=== PATIENT | female | born 1960 | race Caucasian/White ===

== ENCOUNTER → 2021-03-08 08:57 | Outpatient (BNVA) | payer OTHER, SELFPAY | PROVIDERS: PCP Internal Medicine; Visit Provider Advanced Practice Midwife ==

== ENCOUNTER 2021-03-26 12:51 | Outpatient (REF) | payer OTHER, SELFPAY ==
--- NOTE | ~2021-03-26 | US_ITS ---
EXAMINATION: US PELVIS ULTRASOUND CLINICAL INFORMATION: R10.2 - Pelvic and perineal pain. Age 60. COMPARISON: Pelvic ultrasound 02/14/2020 TECHNIQUE: Ultrasound of the pelvis is performed using both transabdominal and transvaginal transducers along with Doppler. Transvaginal imaging is performed due to inadequate visualization transabdominally. FINDINGS: Uterus: The uterus is anteverted and measures 8.2 x 3.2 x 3.6 cm. Volume 49.5 mL. The double wall endometrial thickness is 7 mm. The uterus is smooth in contour and has normal myometrial echogenicity. No visible fibroid. There is some trace fluid in the endocervical canal. No fluid in the uterine cavity. Adnexa: The right ovary is not visualized. There is no visible pelvic mass and no pelvic ascites. Right ovary normal on prior ultrasound 02/14/2020. Left ovary measures 1.9 x 1.3 x 1.4 cm. US/US pelvic and transvaginal IMPRESSION: 1. Uterus: Normal in size. No visible fibroid. Trace fluid in endocervical canal. 2. Adnexa: No pelvic mass or ascites. Right ovary not visualized.
== END 2021-03-26 12:52 | disposition home or self-care (01) ==
LOC: HO.US 12:51
PROVIDERS: PCP Internal Medicine; Visit Provider Advanced Practice Midwife
DX: R10.2 Pelvic and perineal pain (principal)
CPT/HCPCS: 76830; 76856

== ENCOUNTER → 2021-04-09 11:31 | Outpatient (BNVA) | payer OTHER, SELFPAY | PROVIDERS: PCP Internal Medicine; Visit Provider Advanced Practice Midwife ==

== ENCOUNTER 2021-06-12 08:50 | Outpatient (REF) | payer OTHER, SELFPAY ==
--- NOTE | ~2021-06-12 | MM_ITS ---
EXAMINATION: MM SCREENING DIGITAL BREAST TOMOSYNTHESIS, BILATERAL CLINICAL INFORMATION: Screening. Asymptomatic. The lifetime risk of breast cancer based on the Tyrer-Cuzick Model is 8.4%. COMPARISON: Mammography: 03/08/2019 and studies dating back to 06/04/2012 TECHNIQUE: Digital breast tomosynthesis is performed in both the craniocaudal and mediolateral oblique views along with computer-aided detection (CAD). Synthesized 2D images are generated from the tomosynthesis. FINDINGS: There are scattered areas of fibroglandular density (ACR BI-RADS breast composition Category b). There is a stable parenchymal pattern of the right breast without new abnormal dominant mass or suspicious grouping of microcalcifications. About the lateral aspect of the left breast there are 2 adjacent circumscribed densities with one measuring approximately 7 mm in size and the other 6 mm in size. These have shown increase in size. Recommend spot compression view in craniocaudal and 90 degree mediolateral views as well as ultrasound. MM/MM tomosynthesis screening BI IMPRESSION: Enlarging densities about the lateral aspect of the left breast for which further imaging is recommended as described. ASSESSMENT: BI-RADS 0: Incomplete - Need Additional Imaging Evaluation RECOMMENDATION: 1. Additional views of the left breast. 2. Targeted ultrasound if warranted after review of the additional views. 3. Radiology department staff will contact the patient for additional imaging. This patient's information was entered into a reminder system with a target due date for their next mammogram.
== END 2021-06-12 08:51 | disposition home or self-care (01) ==
LOC: HO.MAMMO 08:50
PROVIDERS: Visit Provider Internal Medicine
DX: Z12.31 Encounter for screening mammogram for malignant neoplasm of breast (principal)
CPT/HCPCS: 77063; 77067

== ENCOUNTER 2021-06-24 09:17 | Outpatient (REF) | payer OTHER, SELFPAY ==
--- NOTE | ~2021-06-24 | MM_ITS ---
EXAMINATION: MM DIAGNOSTIC DIGITAL BREAST TOMOSYNTHESIS, LEFT US DIAGNOSTIC ULTRASOUND BREAST, LEFT CLINICAL INFORMATION: Recall from screening for nodularity outer left breast more conspicuous when compared with prior exam. COMPARISON: Mammography: 06/12/2021, 03/08/2019, 02/09/2018, 01/16/2017 TECHNIQUE: Digital breast tomosynthesis is performed. 2D images are generated from the tomosynthesis. The following views are obtained: Spot CC, spot ML x2. Ultrasound left breast is targeted to the outer quadrants. Grayscale imaging and color Doppler are performed without and with harmonics. FINDINGS: There are scattered areas of fibroglandular density (ACR BI-RADS breast composition Category b). The additional views show subcentimeter smooth nodularity in the mid outer breast overlying chronic regional fine fibronodular parenchymal pattern. No architectural abnormality. Ultrasound demonstrates 3 cysts, the largest at 3:00 position 7 cm from nipple measuring approximately 0.6 cm. This is anechoic and shows increased through-transmission of sound. The other 2 cysts are smaller with incompletely internal septation and no associated color flow. There is no solid mass or architectural abnormality. Ultrasound finding corresponds to the mammography. Results are discussed with the patient at time of visit. The finding on mammography corresponds incidental cysts. MM/MM tomosynthesis added views L IMPRESSION: Several small cysts outer left breast corresponding to recent mammography. ASSESSMENT: BI-RADS 2: Benign RECOMMENDATION: Routine annual mammography screening. This patient's information was entered into a reminder system with a target due date for their next mammogram.
== END 2021-06-24 09:18 | disposition home or self-care (01) ==
LOC: HO.MAMMO 09:17
PROVIDERS: Visit Provider Internal Medicine
DX: R92.2 Inconclusive mammogram (principal)
CPT/HCPCS: 76642; 77061; 77065

== ENCOUNTER 2021-09-03 06:46 | Outpatient (REF) | payer OTHER, SELFPAY ==
[2021-09-03 11:56] LABS: Alanine Aminotransferase 19 U/L (0-31); Anion Gap 15 (12-20); Aspartate Amino Transferase 20 U/L (5-31); Blood Urea Nitrogen 17 mg/dL (9-16); Calcium 9.6 mg/dL (8.4-10.2); Carbon Dioxide 24 mmol/L (22-29); Chloride 105 mmol/L (96-108); Cholesterol 288 mg/dL; Estimated Glomerular Filt Rate 58; Glucose Fasting 100 mg/dL (60-99); HDL Cholesterol 45 mg/dL; LDL Cholesterol Calculated 212 mg/dl; Potassium 4.2 mmol/L (3.3-5.1); Sodium 140 mmol/L (135-145); Triglycerides 158 mg/dL
[2021-09-03 12:21] LABS: Vitamin D 25-OH Total 38.9 ng/mL (>30)
== END 2021-09-03 06:47 | disposition home or self-care (01) ==
LOC: HO.HMGCLDS 06:46
PROVIDERS: PCP Internal Medicine; Visit Provider Internal Medicine
DX: E78.00 Pure hypercholesterolemia, unspecified (principal); I10 Essential (primary) hypertension; Z78.0 Asymptomatic menopausal state
CPT/HCPCS: 36415; 80048; 80061; 82306; 84450; 84460

== ENCOUNTER 2021-12-24 07:10 | Outpatient (REF) | payer OTHER, SELFPAY ==
[2021-12-24 11:52] LABS: Alanine Aminotransferase 14 U/L (0-31); Anion Gap 12 (12-20); Aspartate Amino Transferase 17 U/L (5-31); Blood Urea Nitrogen 14 mg/dL (9-16); Calcium 9.5 mg/dL (8.4-10.2); Carbon Dioxide 27 mmol/L (22-29); Chloride 106 mmol/L (96-108); Cholesterol 180 mg/dL; Estimated Glomerular Filt Rate 59; Glucose Fasting 99 mg/dL (60-99); HDL Cholesterol 41 mg/dL; LDL Cholesterol Calculated 113 mg/dl; Potassium 4.1 mmol/L (3.3-5.1); Sodium 141 mmol/L (135-145); Triglycerides 134 mg/dL
[2021-12-24 12:17] LABS: Vitamin D 25-OH Total 44.3 ng/mL (>30)
== END 2021-12-24 07:11 | disposition home or self-care (01) ==
LOC: HO.HMGCLDS 07:10
PROVIDERS: Visit Provider Internal Medicine
DX: E78.2 Mixed hyperlipidemia (principal); Z78.0 Asymptomatic menopausal state
CPT/HCPCS: 36415; 80048; 80061; 82306; 84450; 84460

== ENCOUNTER → 2022-01-29 12:39 | Outpatient (BNVA) | payer OTHER, SELFPAY | PROVIDERS: PCP Internal Medicine; Visit Provider Nurse Practitioner Family | DX: R06.83 Snoring (principal) ==

== ENCOUNTER → 2022-03-13 09:55 | Outpatient (REF) | payer OTHER, SELFPAY ==
--- NOTE | 2022-03-13 10:00 | PFT_ITS ---
Forced vital capacity 93%. FEV1 105%. FEV1/FVC ratio 83. UVR32-29 114% and MVV 111%. Post bronchodilator therapy, no change. Total lung capacity 95%. Residual volume 86%. Diffusion capacity 64%. CONCLUSION: Normal pulmonary function test. Slight decrease in diffusion capacity is noted, which may be due to pulmonary emphysema or some non-pulmonary factors. Clinical correlation recommended. MD SUELLEN Lindsey/ANUP / [id number]
== END ==
LOC: HO.SL 09:55
PROVIDERS: PCP Internal Medicine; Referring Provider Internal Medicine; Visit Provider Neurological Surgery
DX: G47.33 Obstructive sleep apnea (adult) (pediatric) (principal); R06.02 Shortness of breath; R06.83 Snoring; R40.0 Somnolence; R05.9 Cough, unspecified; Z87.891 Personal history of nicotine dependence
CPT/HCPCS: 94060; 94727; 94729; 95806

== ENCOUNTER 2022-06-16 09:12 | Outpatient (REF) | payer OTHER, SELFPAY ==
--- NOTE | ~2022-06-16 | MM_ITS ---
EXAMINATION: MM SCREENING DIGITAL BREAST TOMOSYNTHESIS, BILATERAL CLINICAL INFORMATION: Screening. Asymptomatic. The lifetime risk of breast cancer based on the Tyrer-Cuzick Model is 7%. COMPARISON: Mammography: 06/24/2021, 06/12/2021, 03/08/2019, 02/09/2018; targeted ultrasound left breast 06/24/2021 TECHNIQUE: Digital breast tomosynthesis is performed in both the craniocaudal and mediolateral oblique views along with computer-aided detection (CAD). Synthesized 2D images are generated from the tomosynthesis. FINDINGS: There are scattered areas of fibroglandular density (ACR BI-RADS breast composition Category b). There are no significant masses, abnormal calcifications, or other abnormalities. The small cysts outer left breast are decreased from prior exam. Parenchymal pattern is otherwise similar to prior exams and there is no developing density or architectural abnormality. The axilla and skin contours are unremarkable. MM/MM tomosynthesis screening BI IMPRESSION: No mammographic evidence of malignancy. ASSESSMENT: BI-RADS 2: Benign RECOMMENDATION: Routine annual mammography screening. This patient's information was entered into a reminder system with a target due date for their next mammogram.
== END 2022-06-16 09:13 | disposition home or self-care (01) ==
LOC: HO.MAMMO 09:12
PROVIDERS: PCP Internal Medicine; Visit Provider Internal Medicine
DX: Z12.31 Encounter for screening mammogram for malignant neoplasm of breast (principal)
CPT/HCPCS: 77063; 77067

== ENCOUNTER 2023-01-09 06:53 | Outpatient (REF) | payer OTHER, SELFPAY ==
[2023-01-09 12:22] LABS: Estimated Average Glucose 117 mg/dL; Hemoglobin A1c % 5.7 %
[2023-01-09 12:33] LABS: Alanine Aminotransferase 16 U/L (0-31); Anion Gap 11 (12-20); Aspartate Amino Transferase 18 U/L (5-31); Blood Urea Nitrogen 15 mg/dL (9-16); Carbon Dioxide 24 mmol/L (22-29); Chloride 111 mmol/L (96-108); Cholesterol 173 mg/dL; Estimated Glomerular Filt Rate > 60; Glucose Fasting 94 mg/dL (60-99); HDL Cholesterol 42 mg/dL; LDL Cholesterol Calculated 110 mg/dl; Sodium 142 mmol/L (135-145); Triglycerides 109 mg/dL; Vitamin D 25-OH Total 51.1 ng/mL (>30)
[2023-01-09 12:48] LABS: Microalbumin Urine < 5.0 mg/L
[2023-01-09 13:08] LABS: Creatinine Urine 81.05 mg/dL
== END 2023-01-09 06:54 | disposition home or self-care (01) ==
LOC: HO.HMGCLDS 06:53
PROVIDERS: PCP Internal Medicine; Visit Provider Internal Medicine
DX: E78.2 Mixed hyperlipidemia (principal); I10 Essential (primary) hypertension
CPT/HCPCS: 36415; 80048; 80061; 82043; 82306; 83036; 84450; 84460

== ENCOUNTER 2023-01-14 07:53 | Outpatient (AMB) | payer OTHER, SELFPAY ==
--- NOTE | 2023-01-14 08:03 | MHC.PC.OV ---
Vital Signs 01/14/23 08:04 Height 5 ft 4 in Weight 228 lb BMI 39.1 BP 124/74 Blood Pressure Location Lt brachial Position Sitting Pulse 79 Pulse Source Pulse Oximeter Pulse Oximetry (%) 95 Oxygen Delivery Method Room Air Intake Visit Reasons: Annual PE Intake Note: Pt is here today for her PE Allergies oxycodone [From PERCOCET] Allergy (Severe, Verified 08/17/23 23:39) VOMITING ibuprofen [IBUPROFEN] Allergy (Intermediate, Verified 08/17/23 23:39) RASH/HIVES, rash naproxen Allergy (Intermediate, Verified 08/17/23 23:39) Rash Codeine Sulfate Allergy (Unknown, Uncoded 08/17/23 23:39) / itchy Medication List - Last Reconciled 01/14/23 by Melita Hrud MD acetaminophen (Tylenol) 650 mg (2 x 325 mg) PO Q6H PRN atorvastatin 20 mg PO DAILY 90 days calcium carbonate (Calcium 500) 500 mg PO DAILY cholecalciferol (vitamin D3) 50 mcg PO DAILY coenzyme Q10 (Co Q-10) 10 mg PO DAILY lisinopril 5 mg PO DAILY Tobacco use date assessed: 01/14/23 HPI Annual PE HPI Details 62-year-old lady physical exam. She is up-to-date with her cervical cancer screening, mammogram and her screening colonoscopy. Had recent fasting labs done which showed normal electrolytes, renal function, fasting glucose , fasting lipid panel and vitamin-D level. She has been feeling well except for intermittent pain in her right hip joint sometimes radiating to the middle of her lower abdomen and pelvis. This gets worse on extended periods of walking and standing ENTERED: 12/03/22 FELECIA DUMONT: ORDERED: CBC Auto Diff Test Result Flag Reference Site WBC 4.6 L 4.8-10.8 X10*3/uL RBC 5.00 4.20-5.50 X10*6/uL HGB 15.3 12.0-16.0 g/dl HCT 46.2 37.0-47.0 % MCV 92.4 80.0-98.0 fL MCH 30.6 27.0-33.0 pg MCHC 33.1 31.0-35.0 g/dl RDW 13.5 11.0-16.0 % PLT 137 L 160-400 X10*3/uL MPV 12.9 H 9.4-12.3 fL [facility] Medical History (Updated 08/17/23 @ 23:49 by Melita Hurd MD) Pain in right hip Essential hypertension Former moderate cigarette smoker (10-19 per day) Witnessed apneic spells Loud snoring Shortness of breath on exertion Hx of abnormal cervical Pap smear Mixed dyslipidemia Surgical History History of colposcopy Family History Mother Cervical cancer Father Substance use disorder Brother Substance use disorder Brother Substance use disorder Sister Substance use disorder Housing: House Alcohol intake: never Patient Tobacco Use Status: Former Tobacco user e-Cigarette/Vaping Use: Never Used Second Hand Smoke Exposure: Yes service: No Current occupational status: unemployed Sexual orientation: Straight/Heterosexual Gender identity: Female Cognitive needs: No Hearing needs: No Vision needs: Yes Questionnaire PHQ-9 Over the last 2 weeks, how often have you been bothered by any of the following problems? 1. Little interest or pleasure in doing things: not at all 2. Feeling down, depressed, or hopeless: not at all 3. Trouble falling or staying asleep, or sleeping too much: not at all 4. Feeling tired or having little energy: not at all 5. Poor appetite or overeating: not at all 6. Feeling bad about yourself - or that you are a failure or have let yourself or your family down: not at all 7. Trouble concentrating on things, such as reading the newspaper or watching television: not at all 8. Moving or speaking so slowly that other people could have noticed. Or the opposite - being so fidgety or restless that you have been moving around a lot more than usual: not at all 9. Thoughts that you would be better off or of hurting yourself in some way: not at all Total score: 0 Depression Screening Interpretation: Negative 23051 - PHQ-9 Billing: Yes Source: Developed by Drs. Jean Schwarz, Ghazala Beard, Dwight Agosto and colleagues, with an educational tamica from [employer]. Thrive Questionnaire Declines Thrive assessment: No Date Thrive assessed: 01/14/23 I am a: Patient What is your living situation today?: I have a steady place to live Within the past 12 months, did the food you bought not last and you didn't have the money to get more?: Never true Within the past 12 months, did you worry whether your food would run out before you got money to buy more?: Never true Do you have trouble paying for medicines?: No Do you have trouble getting transportation to medical appointments?: No Do you have trouble paying your heating and electricity bill?: No Do you have trouble taking care of your child, family member or friend?: No Do you have trouble with day-to-day activities such as bathing, preparing meals, shopping, managing finances, etc.?: No Are you currently unemployed and looking for a job?: No Are you interested in more education?: No AUDIT C Alcohol Use Questionnaire (AUDIT-C) 1. How often do you have a drink containing alcohol?: Never Total Score: 0 JENNIE-7 AMB Questionnaire JENNIE-7 Date JENNIE - 7 assessed: 01/14/23 Feeling nervous, anxious, or on edge: 0 = Not at all Not being able to stop or control worryin = Not at all Worrying too much about different things: 0 = Not at all Trouble relaxin = Not at all Being so restless that it is hard to sit still: 0 = Not at all Becoming easily annoyed or irritable: 0 = Not at all Feeling afraid as if something awful might happen: 0 = Not at all Total JENNIE-7 score (0-4 normal; 5-9 mild; 10-14 moderate; 15-21 severe): 0 Source: Developed by Drs. Jean Schwraz, Ghazala Beard, Dwight Agosto and colleagues, with an educational tamica from [employer]. JENNIE-7 Assessment Billing JENNIE-7 Assessment Tool: JENNIE-7 Assessment 26391 Review of Systems Const Denies body aches, Denies fatigue, Denies fever(s), Denies headache(s) and Denies weakness Eyes Denies change in vision, Denies eye discharge and Denies itchy eyes ENT Denies dizziness, Denies headache(s), Denies nasal congestion, Denies nasal discharge and Denies sore throat Card Denies chest pain, Denies lightheadedness, Denies palpitations and Denies dyspnea Resp Denies chest congestion, Denies cough, Denies dyspnea and Denies wheezing GI Denies abdominal pain, Denies change in bowel habits and Denies heartburn Denies urinary frequency, Denies dysuria and Denies urinary urgency Musc Reports stiffness Skin/Breast Denies lesions and Denies rash Neuro Denies dizziness, Denies headache(s) and Denies weakness Psych Reports no additional complaints Endo Denies fatigue, Denies polydipsia, Denies polyuria and Denies palpitations Reese/Lymph Denies easy bruising Aller/Immun Denies itchy eyes, Denies seasonal rhinorrhea and Denies wheezing Physical exam (Primary Care) Vital Signs: Last Vital Signs Pulse 79 01/14/23 08:04 BP 124/74 01/14/23 08:04 Pulse Ox 95 01/14/23 08:04 Oxygen Delivery Method Room Air 01/14/23 08:04 BMI result Body Mass Index 39.1 BMI Assessment/Plan discussion: High BMI High, discussed plan: lifestyle, weight reduction, dietary and physical activity Tobacco/Smoking Status: Tobacco use Status Tobacco use date assessed 01/14/23 01/14/23 08:05 Patient Tobacco Use Status Former Tobacco user 01/14/23 08:05 e-Cigarette/Vaping Use Never Used 01/14/23 08:05 PHQ-9: PHQ-9 Score PHQ-9: Total score 0 01/14/23 08:46 Depression Screening Interpretation: Negative Thrive Assessment: Date of Thrive Assessment Date Thrive assessed 01/14/23 01/14/23 08:46 Const General: comfortable and alert Nutritional Appearance: obese Orientation/consciousness: patient oriented x3 HENMT Ears: hearing grossly normal bilaterally, TM's normal bilaterally and EAC's normal General nose exam: Normal external nose present and No nasal discharge present Face and sinus: Yes sinuses nontender and Yes face symmetric Mouth: Normal oral and palatal mucosa present, oropharynx normal and moist mucous membranes Eyes General: appearance normal, both eyes and all related structures Neck Neck: Yes full ROM, Yes no lymphadenopathy and Yes supple Chest Breast/axilla palpation: normal palpation of the breasts Resp Auscultation: clear to auscultation bilaterally Cardio Rate: regular rate Rhythm: regular rhythm Heart sounds: S1 normal heart sound present and S2 normal heart sound present Bruits: no abdominal aortic bruits GI Palpation (GI): No Abdominal aortic bruit present, Soft to palpation, nontender, no guarding and no masses General: Yes no CVA tenderness Back/Spine/Pelvis Back: no CVA tenderness and No back tenderness Skin General skin exam: no rashes or lesions noted Neuro General: patient oriented x3 Extrem General: Yes full ROM, Yes no joint enlargement, Yes no clubbing, cyanosis or edema and Yes normal gait Psych Appearance: grossly normal and well kempt Mental Status: mental status grossly normal Speech and movement: Normal speech and movement present Affect: normal affect Attitude: cooperative Thought process: Normal thought process present Results Reviewed Results Reviewed: ENTERED: 01/09/23 FELECIA DUMONT: ORDERED: Met Prof Fast, AST, ALT, Lipid Panel, Vitamin D 25-OH Test Result Flag Reference Site Sodium 142 135-145 mmol/L Potassium 4.0 3.3-5.1 mmol/L CL 111 H 96-108 mmol/L CO2 24 22-29 mmol/L Gap 11 L 12-20 BUN 15 9-16 mg/dL Creat 0.91 0.5-1.4 mg/dL EGFR > 60 NOTE: For -[place] individuals, multiply the result by 1.210. Chronic Kidney Disease: Estimated GFR < 60 mL/min/1.73m2 Severe Kidney Disease: Estimated GFR < 15 mL/min/1.73m2 FBS 94 60-99 mg/dL CA 9.0 8.4-10.2 mg/dL AST (GOT) 18 5-31 U/L ALT (GPT) 16 0-31 U/L Triglyceride 109 mg/dL Desirable Triglyceride: less than 150 mg/dL Borderline High Triglyceride 150-199 mg/dL High Triglyceride: 200-499 mg/dL Very High Triglyceride: greater than or equal to 5OO mg/dL Chol 173 mg/dL Desirable Cholesterol: less than 200 mg/dL Borderline High Cholesterol: 200-239 mg/dL High Cholesterol: greater than 239 mg/dL LDL Calculated 110 mg/dl Desirable LDL: less than 100 mg/dL Near Optimal/Above Optimal LDL: 110-129 mg/dL Borderline High LDL: 130-159 mg/dL High LDL: 160-189 mg/dL Very High LDL: greater than or equal to 190 mg/dL HDL 42 mg/dL Desirable HDL: greater than 40 mg/dL Note: This HDL assay may give artificially low results in patients with liver disease. Vit D 25-OH Tot 51.1 >30 ng/mL Health Based Reference Values* < 20 ng/mL Deficient 20-30 ng/mL Insufficient > 30 ng/mL Sufficient Assessment and Plan Assessment & Plan (1) Annual visit for general adult medical examination with abnormal findings: Code(s): Z00.01 - Encounter for general adult medical examination with abnormal findings Plan: Reviewed recent fasting lab results with patient. Recommended dental visit every 6 months and regular eye exams, at least every 2 years. Take adequate calcium in diet and vitamin-D 3 at 2000 IU per cap once a day, in addition to weight-bearing exercises to help maintain good muscle tone and weight control. Instructed to do self-breast exam, and continue to get yearly mammogram, starting . Referred to [facility] for her colonoscopy screen (2) Pain in right hip: Code(s): M25.551 - Pain in right hip Plan: X-ray of right hip and pelvis ordered. Try taking sees acetaminophen 650 mg every 6-8 hours as needed for pain control. (3) Mixed dyslipidemia: Code(s): E78.2 - Mixed hyperlipidemia Plan: Reviewed recent fasting lipid profile with patient with levels within normal limits . Continue with atorvastatin 20 mg daily , in addition to adherence to low-cholesterol diet and regular exercise, at least 30 minutes 3 to 4 times a week. Advised patient to make healthy food choices, eat more fruits, vegetables, whole grains, wild caught fish and low-fat dairy. Limit amount of meat and fried or fatty food products, as well as processed foods and fast foods. Follow-up scheduled with repeat fasting lipid panel in 6 months. (4) Essential hypertension: Code(s): I10 - Essential (primary) hypertension Plan: Blood pressure at goal of less than 130/80. Continue with lisinopril 5 mg daily . Reinforced importance of following a low sodium diet, getting regular exercise, and lowering stress levels. Orders: Orders XR hip RT w PEL1V 01/14/23 M25.551 - Pain in right hip Alanine Aminotransferase 6 Months E78.2 - Mixed hyperlipidemia, I10 - Essential (primary) hypertension, Z78.0 - Asymptomatic menopausal state Vitamin D 25-OH Total 6 Months E78.2 - Mixed hyperlipidemia, I10 - Essential (primary) hypertension, Z78.0 - Asymptomatic menopausal state Aspartate Amino Transferase 6 Months E78.2 - Mixed hyperlipidemia, I10 - Essential (primary) hypertension, Z78.0 - Asymptomatic menopausal state Basic Metabolic Panel Fasting 6 Months E78.2 - Mixed hyperlipidemia, I10 - Essential (primary) hypertension, Z78.0 - Asymptomatic menopausal state Lipid Panel 6 Months E78.2 - Mixed hyperlipidemia, I10 - Essential (primary) hypertension, Z78.0 - Asymptomatic menopausal state Referrals Open Access Screening Colonoscopy Referral Z12.11 - Encounter for screening for malignant neoplasm of colon, Z12.12 - Encounter for screening for malignant neoplasm of rectum Coding Level of Care Code Est Pt Prev Care 40-64y(27921) Diagnoses Annual visit for general adult medical examination with abnormal findings Z00.01 Pain in right hip M25.551 Mixed dyslipidemia E78.2 Essential hypertension I10 Additional Codes JENNIE-7 Assessment Billing - JENNIE-7 Assessment Tool: JENNIE-7 Assessment [id number] ([id number])
[2023-01-14 08:04] VITALS: BP 124/74; PULSE 79; O2SAT 95; BMI 39.1
== END 2023-01-14 08:38 | disposition home or self-care (01) ==
LOC: HO.HMGC 07:53
PROVIDERS: PCP Internal Medicine; Visit Provider Internal Medicine
DX: Z00.00 Encounter for general adult medical examination without abnormal findings (principal); M25.551 Pain in right hip; E78.2 Mixed hyperlipidemia; I10 Essential (primary) hypertension
CPT/HCPCS: 99396

== ENCOUNTER 2023-01-14 08:39 | Outpatient (REF) | payer OTHER, SELFPAY ==
--- NOTE | ~2023-01-14 | XR_ITS ---
EXAMINATION: XR HIP, RIGHT CLINICAL INFORMATION: Right hip pain. COMPARISON: None available. TECHNIQUE: AP pelvis and 2 views of the right hip. FINDINGS: AP film of the pelvis does not demonstrate any evidence of acute fracture or diastasis. No destructive bony lesions are identified. There is some mild sclerosis about the right sacroiliac joint. There appears to be some degenerative disc disease within the lumbar spine L4-S1. Hip joint spaces appear maintained. Two views of the right hip do not demonstrate any evidence of acute fracture or dislocation. There is mild collar spurring present. No abnormal lytic or sclerotic lesions within the femoral head are identified and no evidence of femoral head collapse. XR/XR hip RT w PEL1V IMPRESSION: 1. Mild degenerative change of the right hip without joint space narrowing. 2. Degenerative disc disease L4-S1. 3. Mild degenerative change of the right sacroiliac joint without widening.
== END 2023-01-14 08:40 | disposition home or self-care (01) ==
LOC: HO.HMGCX 08:39
PROVIDERS: PCP Internal Medicine; Visit Provider Internal Medicine
DX: M25.551 Pain in right hip (principal)
CPT/HCPCS: 73502

== ENCOUNTER → 2023-02-19 08:56 | Outpatient (BNVA) | payer OTHER, SELFPAY | PROVIDERS: PCP Internal Medicine; Visit Provider Nurse Practitioner Family ==

== ENCOUNTER → 2023-03-10 08:49 | Outpatient (REF) | payer OTHER, SELFPAY ==
--- NOTE | ~2023-03-10 | XR_ITS ---
EXAMINATION: XR CHEST CLINICAL INFORMATION: Aortic valve disorder COMPARISON: None available. TECHNIQUE: 2 views of the chest were obtained. FINDINGS: No significant abnormality is noted involving the heart, lungs, mediastinum, bony thorax or soft tissues. XR/XR chest 2V IMPRESSION: Unremarkable examination.
--- NOTE | 2023-03-10 09:35 | ECG_ITS ---
Test Reason : OTHER NR VALUE D/O Blood Pressure : / mmHG Vent. Rate : 068 BPM Atrial Rate : 068 BPM P-R Int : 148 ms QRS Dur : 080 ms QT Int : 364 ms P-R-T Axes : 031 035 037 degrees QTc Int : 387 ms Normal sinus rhythm Normal ECG No previous ECGs available Referred By: Marilyn Rosenberg Electronically Signed By:MATILDE COBOS
== END ==
LOC: HO.CARD 08:49
PROVIDERS: PCP Internal Medicine; Visit Provider Nurse Practitioner
DX: Z01.818 Encounter for other preprocedural examination (principal); R10.9 Unspecified abdominal pain; K59.00 Constipation, unspecified; I35.8 Other nonrheumatic aortic valve disorders; R06.02 Shortness of breath; R10.31 Right lower quadrant pain
CPT/HCPCS: 71046; 93005

== ENCOUNTER 2023-03-17 09:08 | Outpatient (REF) | payer OTHER, SELFPAY ==
[2023-03-18 09:44] LABS: BV Int Neg Control Negative (Negative); BV Int Pos Control Positive (Positive)
== END 2023-03-17 09:09 | disposition home or self-care (01) ==
LOC: HO.LAB 09:08
PROVIDERS: PCP Internal Medicine; Visit Provider Advanced Practice Midwife
DX: N89.8 Other specified noninflammatory disorders of vagina (principal)
CPT/HCPCS: 87480; 87510; 87660

== ENCOUNTER 2023-03-17 09:44 | Outpatient (REF) | payer OTHER, SELFPAY ==
[2023-03-19 21:17] LABS: HPV mRNA E6/E7 rflx Not Detected (Not Detected)
== END 2023-03-17 09:45 | disposition home or self-care (01) ==
LOC: HO.LNP 09:44
PROVIDERS: Visit Provider Advanced Practice Midwife
DX: Z01.419 Encounter for gynecological examination (general) (routine) without abnormal findings (principal); Z11.51 Encounter for screening for human papillomavirus (HPV)
CPT/HCPCS: 87624; 88142

== ENCOUNTER 2023-04-07 09:38 | Outpatient (AMB) | payer OTHER, SELFPAY ==
[2023-04-07 09:40] VITALS: BP 124/58; PULSE 83; BMI 37.7
--- NOTE | 2023-04-07 09:40 | MHC.OFFVIS ---
Intake Vital Signs 04/07/23 09:40 Height 5 ft 4 in Weight 219 lb 9.286 oz BMI 37.7 BP 124/58 L Blood Pressure Location Rt brachial Position Sitting Pulse 83 Intake Visit Reasons: 4 week follow up Intake Note: Patient presents to in office visit today for colonoscopy screening. CC: Patient reports she has been doing pretty good and medication given at her last visit seems to be helping. Denies any new GI symptoms or concerns today. 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 Required: No Accompanied by: Self / Same As Patient Allergies acetaminophen [From PERCOCET] Allergy (Severe, Verified 04/07/23 09:44) VOMITING oxycodone [From PERCOCET] Allergy (Severe, Verified 04/07/23 09:44) VOMITING ibuprofen [IBUPROFEN] Allergy (Intermediate, Verified 04/07/23 09:44) RASH/HIVES, rash naproxen Allergy (Intermediate, Verified 04/07/23 09:44) Rash Codeine Sulfate Allergy (Unknown, Uncoded 02/19/23 09:09) / itchy napoxen Allergy (Unknown, Uncoded 02/19/23 09:09) rash HPI 4 week follow up HPI Details Assessment & Plan (1) Pre-op examination: ?Code(s): Z01.818 - Encounter for other preprocedural examination ?Plan: This will be her second colonoscopy, last was in [address] Nicolas and neg except melanosis sunday and IE valve irritation. She suffers CIC controlled on senna and colace. She has RLQ pain that is worse right before land improved after BM, but at times also if she sleeps on the side for too long. She has a lot of bloating and gas.? Pain 4/10 at times.? She has apparently had a negative pelvic ultrasound for this area and x-ray that did show some mild degenerative disease of the right hip and the sacral iliac joint. No upper GI problems. There are no prior problems with anesthesia or sedation.? She denies any cardiac problems and she is having shortness of breath on exertion..BUT AORTIC SYSTOLIC MURMUR ON EXAM AND SOB WITH EXERTION SO ORDERED EGD, CXR AND REFER TO CARDIOLOGY. NO ID problems. No known FHX crc or polyps. ROV 4 weeks to evaluate her response to bentyl 10mg and simethicone.? SHE WAS EDUCATED SHE may need to increase her senna from 1 tablet night to 2 tablets if she becomes more constipated.. (2) YESIKA (obstructive sleep apnea): ?Comment: Mild degree of YESIKA, The total AHI was 7/hr and oxygen alaina was 82% ?Code(s): G47.33 - Obstructive sleep apnea (adult) (pediatric) (3) Abdominal cramping: ?Code(s): R10.9 - Unspecified abdominal pain (4) Constipation: ?Code(s): K59.00 - Constipation, unspecified (5) Aortic systolic murmur on examination: ?Code(s): I35.8 - Other nonrheumatic aortic valve disorders (6) Shortness of breath on exertion: ?Code(s): R06.02 - Shortness of breath (7) Right lower quadrant abdominal pain: ?Code(s): R10.31 - Right lower quadrant pain ? ? ? Orders: Orders ECG 12 lead EKG Today I35.8 - Other nonr heumatic aortic va lve disorders ? XR chest 2V Today I35.8 - Other nonr heumatic aortic va lve disorders, R06 .02 - Shortness of breath ? Referrals Cardiology Referra l ? I35.8 - Other nonr heumatic aortic va lve disorders, R06 .02 - Shortness of breath ? Medications: New peg 3350-electroly ruslan 236-22.74-6.74 -5.86 gram (Golyt devin) ?? until feca l effluent is mahesh r; do not exceed a total volume of 2 ,000 mL 240 mL? PO Q10M 1 day 4,000 mL 0RF Z12.11 - Encounter for screening for malignant neoplas m of colon ? sennosides (Senoko t) 17.2 mg (2 x 8.6 m g) PO DAILY 60 tab s 6RF ? ? dicyclomine 10 mg? PO QID 120 caps 3RF K59.00 - Constipat ion, unspecified, R10.9 - Unspecifie d abdominal pain ? simethicone ?? aft er meals 180 mg? PO QID 30 days 120 caps 3RF F ? COLONOSCOPY Not yet scheduled. BIOPSY EKG 03/10/23? Vent. Rate : 068 BPM ? ? Atrial Rate : 068 BPM ?? P-R Int : 148 ms? QRS Dur : 080 ms ? ? QT Int : 364 ms ? ? ? P-R-T Axes : 031 035 037 degrees ?? QTc Int : 387 ms ? Normal sinus rhythm Normal ECG No previous ECGs available ? Referred By: Marilyn Rosenberg ? Electronically Signed By:MATILDE COBOS CHEST X-RAY 03/16/23 FINDINGS: No significant abnormality is noted involving the heart, lungs, mediastinum, bony thorax or soft tissues. . XR/XR chest 2V IMPRESSION: Unremarkable examination. TODAY'S VISIT She has not yet heard on the colonoscopy. She is having a very good response to the dicyclomine and it happy with this. We review her cardiac workup and there does not appear to be any reason to be concerned about heart attack and it makes GERD more likely in the differential diagnosis for her intermittent chest pain. However, this does not rule out musculoskeletal causes such as costochondritis. [facility] Medical History Essential hypertension Former moderate cigarette smoker (10-19 per day) Hx of abnormal cervical Pap smear Loud snoring Mixed dyslipidemia Pain in right hip Shortness of breath on exertion Witnessed apneic spells Surgical History History of colposcopy Family History Mother Cervical cancer Father Substance use disorder Brother Substance use disorder Brother Substance use disorder Sister Substance use disorder Social History Housing: House Alcohol intake: never Patient Tobacco Use Status: Former Tobacco user e-Cigarette/Vaping Use: Never Used Second Hand Smoke Exposure: Yes service: No Current occupational status: unemployed Sexual orientation: Straight/Heterosexual Gender identity: Female Cognitive needs: No Hearing needs: No Vision needs: Yes Review of Systems Const Denies fatigue, Denies fever(s), Denies night sweats, Denies poor appetite and Denies weight loss Eyes Details: glasses ENT Reports Normal hearing present, Denies dysphagia, Denies odynophagia, Denies throat swelling and Denies tongue swelling Card Reports chest pain Resp Reports no additional complaints GI Denies abdominal pain, Denies melena, Reports bloating, Denies hematochezia, Reports constipation, Reports GI cramping, Denies dysphagia, Denies excessive flatus, Denies early satiety, Denies heartburn, Denies diarrhea, Denies nausea, Denies odynophagia, Denies vomiting and Denies hematemesis Skin/Breast Denies pruritus, Denies lesions, Denies rash and Denies jaundice Neuro Reports Normal hearing present and Denies Abnormal speech present Endo Denies fatigue Aller/Immun Denies throat swelling and Denies tongue swelling Physical Exam Vital Signs: Last Vital Signs Pulse 83 04/07/23 09:40 BP 124/58 L 04/07/23 09:40 BMI result Body Mass Index 37.7 Const General: cooperative, no acute distress, well developed and well groomed Nutritional Appearance: well nourished and obese morbidly obese Orientation/consciousness: oriented to person, oriented to place and oriented to time Limitations: No language barrier HEENT Head: Yes normocephalic and Yes atraumatic Eyes General: appearance normal, both eyes and all related structures Pupils: Equal, round and reactive pupils present Neck Neck: Yes normal visual inspection and Yes no lymphadenopathy Thyroid: Thyroid normal Resp Effort & Inspection: normal respiratory effort and able to speak in complete sentences Auscultation: clear to auscultation bilaterally Cardio Rate: regular rate Rhythm: regular rhythm Heart sounds: Normal, physiologic split S2 sound present Peripheral pulses: radial pulses present and posterior tibial pulses present GI Inspection: No distended, Yes Abdominal panniculus present and Yes obesity Palpation (GI): Soft to palpation, nontender, no guarding, not rigid and No hepatosplenomegaly present Percussion: Yes normal to percussion Auscultation: normal bowel sounds Rectal Exam - Female: deferred Skin General skin exam: no rashes or lesions noted, turgor normal, skin not dry, no jaundice, No spider nevi and no striae Rashes: no rashes Nails: normal Neuro General: oriented to person, oriented to place and oriented to time Cranial nerves: Yes Equal, round and reactive pupils present and Yes Normal hearing present Speech: No Abnormal speech present Extrem General: Yes normal to inspection, No clubbing, No cyanosis and No edema Psych Appearance: grossly normal and well kempt Mental Status: mental status grossly normal Speech and movement: Normal speech and movement present Affect: normal affect Attitude: cooperative Thought process: Normal thought process present and not confabulating Thought content: Normal thought content present Insight: Fair insight present (Psych) Judgement: Fair judgement present (Psych) Results Reviewed Results Reviewed: EKG 03/10/23? Vent. Rate : 068 BPM ? ? Atrial Rate : 068 BPM ?? P-R Int : 148 ms? QRS Dur : 080 ms ? ? QT Int : 364 ms ? ? ? P-R-T Axes : 031 035 037 degrees ?? QTc Int : 387 ms ? Normal sinus rhythm Normal ECG No previous ECGs available ? Referred By: Marilyn Rosenberg ? Electronically Signed By:MATILDE COBOS CHEST X-RAY 03/16/23 FINDINGS: No significant abnormality is noted involving the heart, lungs, mediastinum, bony thorax or soft tissues. XR/XR chest 2V IMPRESSION: Unremarkable examination. Assessment & Plan Assessment & Plan (1) Right lower quadrant abdominal pain: Comment: Resolved well with dicyclomine Code(s): R10.31 - Right lower quadrant pain Plan: She has not yet heard on the colonoscopy. She is having a very good response to the dicyclomine and it happy with this. Her constipation is well controlled on senna Colace and simethicone. We review her cardiac workup and there does not appear to be any reason to be concerned about heart attack and it makes GERD more likely in the differential diagnosis for her intermittent chest pain. However, this does not rule out musculoskeletal causes such as costochondritis. Will see what the continued response is to having good bowel motility as she is not on any acid reducing medication. ROV after colonoscopy (2) Constipation: Code(s): K59.00 - Constipation, unspecified (3) Abdominal cramping: Code(s): R10.9 - Unspecified abdominal pain Coding Level of Care Code Est Pt Level 3 (87238) Diagnoses Right lower quadrant abdominal pain R10.31 Constipation K59.00 Abdominal cramping R10.9
== END 2023-04-07 09:52 | disposition home or self-care (01) ==
PROVIDERS: PCP Internal Medicine; Visit Provider Nurse Practitioner
DX: R10.31 Right lower quadrant pain (principal); K59.00 Constipation, unspecified; R10.9 Unspecified abdominal pain
CPT/HCPCS: 99213

== ENCOUNTER → 2023-04-07 09:38 | Outpatient (BNVA) | payer OTHER, SELFPAY | PROVIDERS: PCP Internal Medicine; Visit Provider Nurse Practitioner ==

== ENCOUNTER 2023-04-26 11:36 | Emergency (ER) | payer OTHER, SELFPAY ==
--- NOTE | ~2023-04-26 | XR_ITS ---
EXAMINATION: XR FOOT, RIGHT CLINICAL INFORMATION: Pain COMPARISON: None available. TECHNIQUE: AP, lateral, and oblique views of the right foot. FINDINGS: Mild DJD of first metatarsophalangeal joint. There is a small developing bunion from the medial head of the first metatarsal. The bones and soft tissues are normal. No fracture. Alignment is anatomic. Joint spaces are maintained. There are small posterior and inferior calcaneal spurs. XR/XR foot RT min 3V IMPRESSION: * No fracture. * Mild DJD first metatarsophalangeal joint and developing small bunion.. * There are small calcaneal spurs.
--- NOTE | 2023-04-26 11:40 | ED_ITS ---
HPI - General Adult General Chief complaint: Extremity Injury, Lower Stated complaint: R broken toe Time Seen by Provider: 04/26/23 12:10 Source: patient and family (patient's ) Mode of arrival: wheelchair Limitations: no limitations History of Present Illness HPI narrative: Patient is a 62 year old assigned female at with a history of HTN presenting to the emergency department today with right 3rd and 4th toe pain. Patient states that yesterday, she was walking with a box when she kicked a wooden petra mouse chair with her right foot. Patient denies any dizziness, lightheadedness, abdominal pain, nausea, vomiting, fever, chills, blurry vision, double vision, loss of vision, chest pain, difficulty breathing, shortness of breath, back pain, night sweats, pain with urination, increased urinary f requency, increased urinary urgency, blood in her urine or stool, syncope or a near syncopal episode, bowel incontinence, bladder incontinence, bowel retention, bladder retention, or any other complaints at this time. Onset (ago): hour(s) Location: right and lower extremity Radiation: non-radiation Severity: mild Severity scale (1-10): 4 Quality: aching and dull Pain Consistency: constant Relieving factors: none Exacerbating factors: none Associated symptoms: denies other symptoms Treatments prior to arrival: none Related Data Home Medications Medication Instructions Recorded Confirmed calcium carbonate 500 mg calcium 500 mg PO DAILY 03/08/21 01/29/22 (1,250 mg) tablet (Calcium 500) cholecalciferol (vitamin D3) 50 50 mcg PO DAILY 03/08/21 01/29/22 mcg (2,000 unit) capsule coenzyme Q10 10 mg capsule (Co 10 mg PO DAILY 08/28/22 Q-10) Previous Rx's Medication Instructions Recorded acetaminophen 325 mg capsule 650 mg PO Q6H PRN pain #20 caps 03/19/22 (Tylenol) lisinopril 5 mg tablet 5 mg PO DAILY #90 tabs 08/04/22 atorvastatin 20 mg tablet 20 mg PO DAILY 90 days #90 tabs 02/23/23 dicyclomine 10 mg capsule 10 mg PO QID #120 caps 03/10/23 peg 3350-electrolytes 236 240 ml PO Q10M 1 day #4,000 mL 03/10/23 gram-22.74 gram-6.74 gram-5.86 gram solution (Golytely) sennosides 8.6 mg tablet (Senokot) 17.2 mg PO DAILY #60 tabs 03/10/23 simethicone 180 mg capsule 180 mg PO TID 30 days #90 caps 03/18/23 Allergies Allergy/AdvReac Type Severity Reaction Status Date / Time oxycodone [From PERCOCET] Allergy Severe VOMITING Verified 04/07/23 09:44 ibuprofen [IBUPROFEN] Allergy Intermediate RASH/HIVES, Verified 04/07/23 09:44 rash naproxen Allergy Intermediate Rash Verified 04/07/23 09:44 Codeine Sulfate Allergy Unknown / itchy Uncoded 02/19/23 09:09 Review of Systems Constitutional: Constitutional: Reports no additional constitutional comp laints, Denies chills, Denies fever(s) and Denies night sweats Eyes: Eyes: Reports no additional eye complaints, Denies blurry vision, Denies change in vision, Denies diplopia, Denies eye discharge, Denies loss of vision and Denies eye pain ENT: Denies dizziness Cardiovascular: Cardiovascular: Reports no additional cardiovascular complaints, Denies chest pain, Denies lightheadedness, Denies Loss of Consciousness and Denies dyspnea Respiratory: Respiratory: Reports no additional respiratory complaints and Denies dyspnea Gastrointestinal: Gastrointestinal: Reports no additional gastrointestinal complaints, Denies abdominal pain, Denies melena, Denies hematochezia, Denies change in bowel habits and Denies change in stool character Genitourinary: Genitourinary: Denies hematuria, Denies urinary frequency, Denies dysuria, Denies urinary incontinence, Denies urinary hesitancy and Denies urinary urgency Musculoskeletal: Musculoskeletal: Reports no additional musculoskeletal complaints, Denies numbness and Denies tingling Comments: right foot pain Neurologic: Denies dizziness, Denies loss of vision, Denies numbness and Denies tingling Psychiatric: Psychiatric: Reports no additional psychiatric complaints Endocrine: Endocrine: Reports no additional endocrine complaints Hematologic/Lymphatic: Hematologic/Lymphatic: Reports no additional hematologic/lymphatic complaints Allergic/Immunologic: Allergic/Immunologic: Reports no additional allergic/immunologic complaints PMFSH Past Medical History Attestation statement: The following information was validated with the patient. (all information validated with the patient's ) Source: old records reviewed, obtained from family (patient's provided additional history and confirmed the history provided by the patient.) and nursing notes reviewed Medical History (Updated 04/26/23 @ 12:12 by JUAN CARLOS Cardenas) Abdominal cramping Essential hypertension Former moderate cigarette smoker (10-19 per day) Hx of abnormal cervical Pap smear Loud snoring Mixed dyslipidemia Pain in right hip Pre-op examination Right lower quadrant abdominal pain Shortness of breath on exertion Witnessed apneic spells Surgical History History of colposcopy Family History Family History Mother Cervical cancer Father Substance use disorder Brother Substance use disorder Brother Substance use disorder Sister Substance use disorder Social History Social History Housing: House Alcohol intake: never Patient Tobacco Use Status: Former Tobacco user e-Cigarette/Vaping Use: Never Used Second Hand Smoke Exposure: Yes service: No Current occupational status: unemployed Sexual orientation: Straight/Heterosexual Gender identity: Female Cognitive needs: No Hearing needs: No Vision needs: Yes Physical Exam ED Vital Signs: Vital Signs - 24 hr 04/26/23 11:42 Temperature 97.7 F Pulse Rate 81 Respiratory Rate 16 Blood Pressure 116/86 Pulse Oximetry 95 Oxygen Delivery Method Room Air BMI result Body Mass Index 34.9 Const General: cooperative, no acute distress, alert and awake Nutritional Appearance: well nourished Orientation/consciousness: patient oriented x3 Limitations: no limitations HENMT Head: Yes normal to inspection and Yes atraumatic Ears: hearing grossly normal bilaterally and external ears normal General nose exam: Normal external nose present, no nasal discharge noted and no epistaxis Face and sinus: Yes normal facial exam, No abrasion and No laceration Mouth: Normal oral and palatal mucosa present, no drooling and no muffled voice Eyes General: appearance normal, both eyes and all related structures Periorbital: periorbital findings normal Eyelids: Yes eyelids normal Conjunctivae: conjunctivae normal Pupils: Equal, round and reactive pupils present EOM: EOMs intact bilaterally Neck Neck: Yes normal visual inspection, Yes full ROM and Yes no lymphadenopathy Chest Chest palpation & inspection: normal inspection of the chest Resp Effort & Inspection: normal respiratory effort and able to speak in complete sentences GI Inspection: Yes normal to inspection Neuro General: patient oriented x3 and moves all extremities Cranial nerves: Yes Equal, round and reactive pupils present Cognition (Neuro): normal cognition Motor exam (neuro): 5/5 motor strength present throughout Sensory Exam: Normal double simultaneous stimulation for sensation Coordination: [id number] test normal Extrem Other: minimal swelling / mild bruising present to the dorsal aspect of the right foot just proximal of the 3rd and 4th toes General: Yes full ROM and Yes capillary refill normal Psych Appearance: grossly normal Mental Status: mental status grossly normal Affect: normal affect Attitude: cooperative Thought process: Normal thought process present Thought content: Normal thought content present Insight: Good insight present (Psych) Course Course Course Narrative: RME performed by Lina Wolf PA-C. Patient is a 62 year old assigned female at presenting to the emergency department with a possibly broken right toes. Imaging ordered. Patient placed back in the waiting room pending room availability and results. Medical Decision Making Medical Decision Making MDM Narrative: Patient is a 62 year old assigned female at with a history of HTN presenting to the emergency department today with right foot pain. Patient's physical exam was as noted in the physical exam portion of this chart. Patient's right foot x-ray showed no acute process. I explained my physical exam findings as well as all test results to the patient and the patient's . I answered all questions asked by the patient and the patient's . I stressed the importance of the patient taking her medication as prescribed. I stressed the importance of the patient following up with her primary care provider. I stressed the importance of the patient returning to the emergency department immediately if her symptoms were to worsen or if she were to develop any dizziness, shortness of breath, difficulty breathing, chest pain, blurry vision, loss of vision, nausea, vomiting, abdominal pain, fever, chills, back pain, or any other complaints. Patient and the patient's verbalized agreement and understanding with this treatment plan and discharge. Differential Diagnosis Differential Diagnoses: The differential diagnosis associated with the p resentation includes Toe fracture Toe pain Foot fracture Foot pain Independent Interpretation I performed an independent interpretation of an: Plain X-Ray Interpretation: My interpretation is in agreement with the radiologist's impression of this imaging study. EXAMINATION: XR FOOT, RIGHT CLINICAL INFORMATION: Pain? COMPARISON: None available.? TECHNIQUE: AP, lateral, and oblique views of the right foot. FINDINGS: Mild DJD of first metatarsophalangeal joint. There is a small developing bunion from the medial head of the first metatarsal. The bones and soft tissues are normal. No fracture. Alignment is anatomic. Joint spaces are maintained. There are small posterior and inferior calcaneal spurs. XR/XR foot RT min 3V IMPRESSION: ? *? No fracture. ? *? Mild DJD first metatarsophalangeal joint and developing small bunion.. ? *? There are small calcaneal spurs. Dictated By: Adrien Holguin MD Signed By: Electronically signed by Adrien Holguin MD 04/26/23 8006 Radiology Impression Discussion of test interpretation with radiology: I have reviewed the radiologist's reading. Independent Historian Clinical information obtained from an independent historian. History obtained from or confirmed by: Spouse (patient's provided additional history and confirmed the history provided by the patient.) Chronic Conditions Patient?s care impacted by: Hypertension Discharge Plan Discharge Clinical Impression: Acute foot pain Patient Disposition: Home, Self-Care Instructions: Arthralgia (ED) Additional Instructions: Follow up with your primary care provider. Return to the emergency department immediately if your symptoms worsen or if you develop any dizziness, shortness of breath, difficulty breathing, chest pain, blurry vision, loss of vision, nausea, vomiting, abdominal pain, fever, chills, back pain, or any other comp laints. Prescriptions: No Action lisinopril 5 mg tablet 5 mg PO DAILY Qty: 90 2RF atorvastatin 20 mg tablet 20 mg PO DAILY 90 Days Qty: 90 1RF simethicone 180 mg capsule 180 mg PO TID 30 Days Qty: 90 3RF Rx Instructions: after meals acetaminophen [Tylenol] 325 mg capsule 650 mg PO Q6H PRN (Reason: pain) Qty: 20 0RF calcium carbonate [Calcium 500] 500 mg calcium (1,250 mg) tablet 500 mg PO DAILY cholecalciferol (vitamin D3) 50 mcg (2,000 unit) capsule 50 mcg PO DAILY coenzyme Q10 [Co Q-10] 10 mg capsule 10 mg PO DAILY peg 3350-electrolytes [Golytely] 236-22.74-6.74 -5.86 gram recon soln 240 ml PO Q10M 1 Days Qty: 4000 0RF Rx Instructions: until fecal effluent is clear; do not exceed a total volume of 2,000 mL sennosides [Senokot] 8.6 mg tablet 17.2 mg PO DAILY Qty: 60 6RF dicyclomine 10 mg capsule 10 mg PO QID Qty: 120 3RF Referrals: Melita Hurd MD [Primary Care Provider] - Print Language: Tamazight
[2023-04-26 11:42] VITALS: BP 116/86; PULSE 81; RESP 16; TEMP 36.5; O2SAT 95; BMI 34.9
== END 2023-04-26 13:23 | disposition home or self-care (01) ==
LOC: HO.ED 12:24
PROVIDERS: Emergency Provider Emergency Medicine; PCP Internal Medicine
DX: M79.671 Pain in right foot (principal)
CPT/HCPCS: 73630; 99282; 99283

== ENCOUNTER 2023-05-28 09:20 | Outpatient (AMB) | payer OTHER, SELFPAY ==
--- NOTE | 2023-05-28 09:31 | A.OFFVIS_ITS ---
Intake Vital Signs 05/28/23 09:32 Height 5 ft 5 in Weight 217 lb 6.012 oz BMI 36.2 BP 122/66 Blood Pressure Location Lt brachial Position Sitting Pulse 79 Intake Visit Reasons: [employer]/LOZANO/SOB+ AV DISEASE Intake Note: NPV Airline Reservation Agent Required: No Accompanied by: Self / Same As Patient Allergies oxycodone [From PERCOCET] Allergy (Severe, Verified 05/28/23 09:34) VOMITING ibuprofen [IBUPROFEN] Allergy (Intermediate, Verified 05/28/23 09:34) RASH/HIVES, rash naproxen Allergy (Intermediate, Verified 05/28/23 09:34) Rash Codeine Sulfate Allergy (Unknown, Uncoded 05/28/23 09:34) / itchy Medication List - Last Reconciled 05/28/23 by Jose De Jesus Pérez MD acetaminophen (Tylenol) 650 mg (2 x 325 mg) PO Q6H PRN atorvastatin 20 mg PO DAILY 90 days calcium carbonate (Calcium 500) 500 mg PO DAILY cholecalciferol (vitamin D3) 50 mcg PO DAILY coenzyme Q10 (Co Q-10) 10 mg PO DAILY dicyclomine 10 mg PO QID lisinopril 5 mg PO DAILY peg 3350-electrolytes 236-22.74-6.74 -5.86 gram (Golytely) 240 mL PO Q10M 1 day sennosides (Senokot) 17.2 mg (2 x 8.6 mg) PO DAILY simethicone 180 mg PO TID 30 days HPI HPI Comments History of Present Illness Details Kristan is here for consultation regarding cardiac murmur. It seems that during routine auscultation, detected to have systolic murmur and hence she has been sent here. Patient is not aware of any cardiac issues in the past. She states a while back, she had some shortness of breath and at that time she was put on lisinopril. Since then, her symptoms resolved completely. She is back to normal self. She has got absolutely no symptoms like chest pain or in fact anything cardiac sounding. No history of any coronary disease or myocardial infarction or cardiomyopathy. [facility]LY [facility] Medical History (Updated 04/27/23 @ 00:29 by Background Daemon) Right lower quadrant abdominal pain Abdominal cramping Pre-op examination Pain in right hip Essential hypertension Former moderate cigarette smoker (10-19 per day) Witnessed apneic spells Loud snoring Shortness of breath on exertion Hx of abnormal cervical Pap smear Mixed dyslipidemia Surgical History History of colposcopy Family History Mother Cervical cancer Father Substance use disorder Brother Substance use disorder Brother Substance use disorder Sister Substance use disorder Social History Housing: House Alcohol intake: never Patient Tobacco Use Status: Former Tobacco user e-Cigarette/Vaping Use: Never Used Second Hand Smoke Exposure: Yes service: No Current occupational status: unemployed Sexual orientation: Straight/Heterosexual Gender identity: Female Cognitive needs: No Hearing needs: No Vision needs: Yes Review of Systems Const Denies chills, Denies daytime sleepiness, Denies fatigue, Denies fever(s), Denies frequent falls, Denies night sweats, Denies snoring, Denies weakness, Denies weight gain and Denies weight loss Eyes Denies loss of vision ENT Denies dizziness and Denies hearing loss Card Denies chest pain, Denies chest pain with activity, Denies syncope, Denies rapid heart rate, Denies edema, Denies claudication, Denies leg edema, Denies lightheadedness, Denies palpitations, Denies dyspnea, Denies dyspnea on exertion and Denies orthopnea Resp Denies cough, Denies excessive phlegm production, Denies dyspnea, Denies dyspnea on exertion, Denies snoring and Denies wheezing GI Denies abdominal pain, Denies hematochezia, Denies change in bowel habits, Denies change in stool character, Denies heartburn, Denies nausea and Denies vomiting Denies hematuria, Denies urinary frequency and Denies dysuria Musc Denies arthralgias, Denies muscle weakness, Denies numbness and Denies tingling Skin/Breast Denies nail changes and Denies rash Neuro Denies Abnormal speech present, Denies dizziness, Denies syncope, Denies frequent falls, Denies loss of vision, Denies memory loss, Denies numbness, Denies tingling and Denies weakness Psych Denies depression and Denies memory loss Endo Denies fatigue and Denies palpitations Aller/Immun Denies wheezing Physical Exam Vital Signs: Last Vital Signs Pulse 79 05/28/23 09:32 BP 122/66 05/28/23 09:32 BMI result Body Mass Index 36.2 Const General: comfortable and no acute distress Orientation/consciousness: patient oriented x3 HEENT Other: Unremarkable Head: Yes normal to inspection Neck Neck: Yes normal visual inspection Chest Chest palpation & inspection: normal inspection of the chest Resp Auscultation: clear to auscultation bilaterally Cardio Palpation: normal PMI Heart sounds: S1 normal heart sound present, S2 normal heart sound present, no gallops, Murmur heart sound present systolic III/ and at the right sternal border and no rubs GI Palpation (GI): Soft to palpation Back/Spine/Pelvis Other: unremarkable Skin General skin exam: no rashes or lesions noted Neuro General: patient oriented x3 Speech: No Abnormal speech present Extrem General: Yes normal to inspection Psych Mental Status: mental status grossly normal Assessment & Plan Assessment & Plan (1) Aortic systolic murmur on examination: Code(s): I35.8 - Other nonrheumatic aortic valve disorders Plan In the recent EKG, underlying rhythm is sinus at 68/Min; no significant ST-T changes and otherwise unremarkable. Normal ME and corrected QT. On auscultation, she has an aortic valve systolic murmur. Possible bicuspid considering her age. She has absolutely no symptoms. Recommend echocardiogram for further assessment. She asked about colonoscopy and it would be preferable to review her echocardiogram before proceeding. Orders: Orders CA echo transthoracic complete Today I35.8 - Other nonrheumatic aortic valve disorders Coding Level of Care Code New Pt Level 3 (58541) Diagnoses Aortic systolic murmur on examination I35.8
[2023-05-28 09:32] VITALS: BP 122/66; PULSE 79; BMI 36.2
== END 2023-05-28 09:45 | disposition home or self-care (01) ==
PROVIDERS: PCP Internal Medicine; Referring Provider Internal Medicine; Visit Provider Internal Medicine
DX: I35.8 Other nonrheumatic aortic valve disorders (principal)
CPT/HCPCS: 99203

== ENCOUNTER → 2023-05-28 09:20 | Outpatient (BNVA) | payer OTHER, SELFPAY | PROVIDERS: PCP Internal Medicine; Referring Provider Internal Medicine; Visit Provider Internal Medicine ==

== ENCOUNTER → 2023-05-29 09:41 | Outpatient (REF) | payer OTHER, SELFPAY ==
--- NOTE | 2023-05-29 09:43 | CA_ITS ---
Transthoracic Echocardiogram Patient (Last, First, Middle): Kristan Holcomb L Gender: Female Date of : 1960 Age: 62 Procedure Date: 05/29/2023 Procedure Type: Transthoracic Echocardiogram Location: OP Height: 165.1 cm Weight: 98.43 kg BSA: 2.05 m2 Heart Rate: 62 bpm BP: 150 / 70 mmHg Tax Assistant: ZENIA Blakely MD: Jose De Jesus Pérez MD Ballet Soloist: Alden Abraham MD Symptoms: I35.8 - Other nonrheumatic aortic valve disorders Study Quality: Adequate ECG Rhythm: Sinus Conclusions: - 1. Normal LV ejection fraction with impaired relaxation filling pattern 2. Fibrocalcific aortic valve changes noted with mild aortic regurgitation 3. Normal RV systolic pressure 4. No gross pericardial effusion Findings Left Ventricle Normal left ventricular size, thickness, and systolic function. The visually estimated ejection fraction is between 55-60%. Spectral Doppler is indicative of an impaired relaxation filling pattern. E/E prime ratio is between 8 and 15 consistent with indeterminate filling pressures. Right Ventricle Normal right ventricular cavity size and systolic function. Atria The left atrium is likely dilated. There is no evidence of interatrial shunt. The right atrium is normal in size. Aortic Valve There is mild calcification of the aortic valve. There is mild thickening of the aortic valve. There is no aortic valve stenosis. There is mild aortic valve regurgitation. Mitral Valve Normal mitral valve structure and function. There is trace mitral valve regurgitation. There is no mitral valve stenosis. Pulmonic Valve The pulmonic valve is likely normal. There is trace pulmonic valve regurgitation. Tricuspid Valve Normal tricuspid valve structure. There is trace tricuspid valve regurgitation. The right ventricular systolic pressure is normal. The right ventricular systolic pressure is 21 mmHg. Normal right atrial pressure. There is no evidence of pulmonary hypertension. Great Vessels All visible segments of the aorta are normal in size. The pulmonary artery was not well visualized. Venous The inferior vena cava is normal in size and collapses greater than 50% with inspiration. Pericardium/Pleural There is no evidence of pericardial effusion. Prior Study Comparison No prior study available for comparison. Measurements 2D Linear Measurements IVSd: 0.80 0.6-0.9/0.6-1.0 cm LVIDd: 4.70 3.9-5.3/4.2-5.9 cm LVIDd Index: 2.29 2.4-3.2/2.2-3.1 cm/m2 LVIDs: 2.90 2.0-3.6 cm LVPWd: 0.90 0.7-1.1 cm LA Diam: 3.60 2.7-3.8/3.0-4.0 cm LAIDs Index: 1.76 1.5-2.3 cm/m2 LV Mass: 164.65 67-162/88-224 g LV Mass Index: 80.32 43-95/49-115 g/m2 LVOT Diam: 2.00 3.0+(-)1.3 cm 2D Systolic Function EF 4C: 57.50 >55% EF 2C: 61.70 >55% EF BiP: 59.90 >55% Mitral Valve MV Pk E: 1.02 MV PK A: 1.03 MV Decel Time: 218.00 E/A: 1.00 E'Lateral: 9.25 E'Medial: 8.38 E/E' Med: 12.20 E/E' Lat: 11.00 PHT: 64.00 MVA PHT: 3.44 Decel [place]: 4.67 Aortic Valve AoV Pk Russ: 1.67 AoV Mn Russ: 1.16 AoV VTI: 0.36 AoV Pk Grad: 11.00 Aov Mn Grad: 7.00 CHELSY Cont.VTI: 2.13 AI Pk Russ: 3.35 AI [place]: 2.42 LVOT LVOT Pk Russ: 1.00 LVOT Mn Russ: 0.74 LVOT VTI: 0.25 LVOT Pk Grad: 4.00 LVOT Mn Grad: 2.00 LVOT Diam: 2.00 LVOT Area: 3.14 Diastolic Function MV Pk E: 1.02 MV Pk A: 1.03 E/A: 1.00 E'Medial: 8.38 E/E' Med: 12.20 E' Laterial: 9.25 E/E' Lat: 11.00 Right Ventricle TAPSE (mm): 28.50 TVS' Russ: 16.30 Tricuspid Valve TR Pk Russ: 2.12 TR Pk Grad: 18.00 RA Press: 3.00 RVSP: 21.00 Great Vessels Aorta Sinus of Valsalva: 3.40 2.0-3.5 cm Ao Asc: 3.30 2.1-3.4 cm Pulmonary Valve PV Pk Russ: 0.87 Peak PV Grad: 3.00 Updated in Other Vendor System with Status of Final Alden Abraham MD electronically signed on 05/30/2023 1:45:33 PM with status of Final
== END ==
LOC: HO.CARD 09:41
PROVIDERS: PCP Internal Medicine; Visit Provider Internal Medicine
DX: I35.8 Other nonrheumatic aortic valve disorders (principal)
CPT/HCPCS: 93306

== ENCOUNTER → 2023-05-29 09:43 | Outpatient (BNV) | payer OTHER, SELFPAY | PROVIDERS: PCP Internal Medicine; Visit Provider Internal Medicine Cardiovascular Disease | DX: I35.1 Nonrheumatic aortic (valve) insufficiency (principal) | CPT/HCPCS: 93306 ==

== ENCOUNTER 2023-06-11 07:38 | Day surgery (SDC) | payer OTHER, SELFPAY ==
[2023-06-09 14:16] VITALS: BMI 37.6
--- NOTE | 2023-06-10 12:00 | HO.ANESPROP2 ---
Documented by User: Loretta Moscoso NP 06/10/23 12:03 HPI - Anesthesia Eval Consult details Narrative: 62yo F for Colonoscopy Recent eval by cardiology for murmur. ECHO OK. PMFSH Active Problems Active Problems: All Active Problems (Updated 04/27/23 @ 00:29 by Background Daemon) Aortic systolic murmur on examination (Acute) Constipation (Acute) Pain in right hip (Acute) YESIKA (obstructive sleep apnea) (Acute) Essential hypertension (Acute) Former moderate cigarette smoker (10-19 per day) (Acute) Witnessed apneic spells (Acute) Loud snoring (Acute) Shortness of breath on exertion (Acute) Mixed dyslipidemia (Acute) Past Medical History Medical History (Updated 04/27/23 @ 00:29 by Background Daemon) Right lower quadrant abdominal pain Abdominal cramping Pre-op examination Pain in right hip Essential hypertension Former moderate cigarette smoker (10-19 per day) Witnessed apneic spells Loud snoring Shortness of breath on exertion Hx of abnormal cervical Pap smear Mixed dyslipidemia Family History Family History Mother Cervical cancer Father Substance use disorder Brother Substance use disorder Brother Substance use disorder Sister Substance use disorder Surgical History Surgical History History of colposcopy Social History Social History Housing: House Alcohol intake: never Patient Tobacco Use Status: Former Tobacco user e-Cigarette/Vaping Use: Never Used Second Hand Smoke Exposure: Yes service: No Current occupational status: unemployed Sexual orientation: Straight/Heterosexual Gender identity: Female Cognitive needs: No Hearing needs: No Vision needs: Yes Meds Allergies Allergy/AdvReac Type Severity Reaction Status Date / Time oxycodone [From PERCOCET] Allergy Severe VOMITING Verified 05/28/23 09:34 ibuprofen [IBUPROFEN] Allergy Intermediate RASH/HIVES, Verified 05/28/23 09:34 rash naproxen Allergy Intermediate Rash Verified 05/28/23 09:34 Codeine Sulfate Allergy Unknown / itchy Uncoded 05/28/23 09:34 Home Medications Medication Instructions Recorded Confirmed Last Taken Type calcium carbonate 500 mg calcium 500 mg PO DAILY 03/08/21 05/28/23 Unknown History (1,250 mg) tablet (Calcium 500) cholecalciferol (vitamin D3) 50 50 mcg PO DAILY 03/08/21 05/28/23 Unknown History mcg (2,000 unit) capsule coenzyme Q10 10 mg capsule (Co 10 mg PO DAILY 08/28/22 05/28/23 Unknown History Q-10) Exam Exam Date and Time: June 10, 2023 1200 Height,Weight and Vital Signs: Height 5 ft 4 in Weight 99.337 kg Narrative Narrative: EKG 02/2023 Vent. Rate : 068 BPM Atrial Rate : 068 BPM P-R Int : 148 ms QRS Dur : 080 ms QT Int : 364 ms P-R-T Axes : 031 035 037 degrees QTc Int : 387 ms Normal sinus rhythm Normal ECG No previous ECGs available ECHO 05/2023 Conclusions: - 1. Normal LV ejection fraction with impaired relaxation filling pattern 2. Fibrocalcific aortic valve changes noted with mild aortic regurgitation 3. Normal RV systolic pressure 4. No gross pericardial effusion Assessment and Plan Assessment Anesthesia Assessment: Chart Reviewed Documented by User: Vasu Senior MD 06/11/23 17:42 HPI - Anesthesia Eval Consult details Narrative: 62yo F for Colonoscopy Recent eval by cardiology for murmur. Mild AR PMFSH Past Medical History Medical History (Updated 04/27/23 @ 00:29 by Marilu Fxo) Right lower quadrant abdominal pain Abdominal cramping Pre-op examination Pain in right hip Essential hypertension Former moderate cigarette smoker (10-19 per day) Witnessed apneic spells Loud snoring Shortness of breath on exertion Hx of abnormal cervical Pap smear Mixed dyslipidemia Functional capacity: independent ambulation Family History Family History Mother Cervical cancer Father Substance use disorder Brother Substance use disorder Brother Substance use disorder Sister Substance use disorder Family history of problems with anesthesia: No Surgical History Surgical History History of colposcopy History of Problems with Anesthesia: No Social History Social History Housing: House Alcohol intake: never Patient Tobacco Use Status: Former Tobacco user e-Cigarette/Vaping Use: Never Used Second Hand Smoke Exposure: Yes service: No Current occupational status: unemployed Sexual orientation: Straight/Heterosexual Gender identity: Female Cognitive needs: No Hearing needs: No Vision needs: Yes Meds Allergies Allergy/AdvReac Type Severity Reaction Status Date / Time oxycodone [From PERCOCET] Allergy Severe VOMITING Verified 05/28/23 09:34 ibuprofen [IBUPROFEN] Allergy Intermediate RASH/HIVES, Verified 05/28/23 09:34 rash naproxen Allergy Intermediate Rash Verified 05/28/23 09:34 Codeine Sulfate Allergy Unknown / itchy Uncoded 05/28/23 09:34 Home Medications Medication Instructions Recorded Confirmed Last Taken Type calcium carbonate 500 mg calcium 500 mg PO DAILY 03/08/21 05/28/23 Unknown History (1,250 mg) tablet (Calcium 500) cholecalciferol (vitamin D3) 50 50 mcg PO DAILY 03/08/21 05/28/23 Unknown History mcg (2,000 unit) capsule coenzyme Q10 10 mg capsule (Co 10 mg PO DAILY 08/28/22 05/28/23 Unknown History Q-10) Exam Airway Mallampati Class: IV Denture: Upper Loose/Missing/Broken Teeth: Yes Assessment and Plan Assessment Anesthesia Assessment: Anesthesia Plan Discussed Final Anesthetic Review Family History of Problems with Anesthesia: No History of Problems with Anesthesia: No NPO: Yes ASA Class: III Final Preanesthetic Review: Meds/Allgs Chart Reviewed, Consent Obtained/Reviewed and Anes Risks/Benef Reviewed Patient Risk: Intermediate Procedure Risk: Intermediate Anesthetic Plan Anesthetic Plan: MAC: Disposition: Standard PACU
[2023-06-11 08:42] VITALS: BP 134/71; PULSE 60; RESP 16; TEMP 36.2; O2SAT 97; BMI 36.0
--- NOTE | 2023-06-11 10:21 | P.HPSUR_ITS ---
Pre-Procedural Eval Section A Date of Service: 06/11/23 Section B Chief Complaint: Unspecified abdominal pain, Constipation Relevant Family History (Specify if Yes): No Relevant Social History: None Present Medications: see Short Stay Collaborative assessment Medical History: Significant History (Right lower quadrant abdominal pain Abdominal cramping Pre-op examination Pain in right hip Essential hypertension Former moderate cigarette smoker (10-19 per day) Witnessed apneic spells Loud snoring Shortness of breath on exertion Hx of abnormal cervical Pap smear Mixed dyslipidemia) History of Previous Operations: No relevant previous surgery Allergies: Allergies Allergy/AdvReac Type Severity Reaction Status Date / Time oxycodone [From PERCOCET] Allergy Severe VOMITING Verified 05/28/23 09:34 ibuprofen [IBUPROFEN] Allergy Intermediate RASH/HIVES, Verified 05/28/23 09:34 rash naproxen Allergy Intermediate Rash Verified 05/28/23 09:34 Codeine Sulfate Allergy Unknown / itchy Uncoded 05/28/23 09:34 Review of Systems Sugical H&P ROS: Negative: Constitution, Cardiovascular, Respiratory, Neurological, Psychiatric, Hem-Onc, Allergic/Immunologic, Gastrointestinal, Genitourinary, Musculoskeletal, Integumentary, Endocrine and Eyes/Ears/Nose/Thro at Exam Surgical H&P Exam: Normal: HEENT, Normal: Heart, Normal: Lungs, Normal: Extremities, Normal: Abdomen, Normal: Skin and Normal: Neurological Plan Diagnosis/Plan: Unchanged I have reviewed the history and physical and performed a pertinent physical examination on my patient. No changes have occurred unless specified. Time Spent With Patient Time: Total time managing care of this patient today ____ minutes.
--- NOTE | 2023-06-11 10:44 | W.PM.OPN ---
Operative Note Operative Note Date of Service: 06/11/23 Narrative: Operative Information Procedure Description: Colonoscopy Indication: constipation, RLQ pain Anesthesia: MAC COLONOSCOPY Instrument: Olympus variable stiffness pediatric scope 190L Colonoscopy Monitoring: Vital signs and clinical assessment, continuous EKG monitoring, Pulse oximetry, Carbon Dioxide monitoring and blood pressure monitoring were done throughout the procedure. Colon withdrawal time was 10 minutes. Procedure: The patient was placed in the left lateral decubitis position and pre-procedure medications were administered. After a digital rectal examination of the ano-rectum, the video colonoscope was inserted into the rectum and advanced through the colon to the cecum/TI. The colonoscope was slowly withdrawn in a retrograde panoramic fashion and the colon mucosa was carefully examined including a retroflexed view of the rectum. Findings and interventions are described below. Procedure Difficulty: easy Findings: Terminal Ileum- few samll erosions seen with erythema, bx taken Melanosis coli noted Bx taken from right and left colon in separate jars Cecum: 3-4 mm sessile polyp removed with cold forceps Ascending Colon: normal Transverse Colon -normal Descending Colon:normal Sigmoid Colon: normal Rectum: Retroflexion with medium sized internal hemorrhoids, grade II Anorectum - normal Colon preparation: [place] Bowel Preparation Scale Right colon; 2 Transverse colon: 3 Left colon; 3 (0 = Unprepared colon segment with mucosa not seen due to solid stool that cannot be cleared. 1 = Portion of mucosa of the colon segment seen, but other areas of the colon segment not well seen due to staining, residual stool and/or opaque liquid. 2 = Minor amount of residual staining, small fragments of stool and/or opaque liquid, but mucosa of colon segment seen well. 3 = Entire mucosa of colon segment seen well with no residual staining, small fragments of stool or opaque liquid) Impression and Post Procedure Diagnosis: polyp internal hemorrhoids ileitis melanosis coli Plan: High fiber diet leaflet Avoid straining at stool, epsom salts and sitz bath, anusol supps or cream Repeat Colonoscopy in 5-7 years if adenomatous polyp, if benign then 10 yrs or earlier if clinically indicated confirm nsaid hx, consider w/u for crohns if ongoing sx, can get CTe or VCE Above findings were reviewed with the patient and relevant handouts were provided if indicated.
[2023-06-11 10:55] VITALS: BP 100/56; PULSE 76; RESP 13; TEMP 36.7; O2SAT 100
[2023-06-11 11:10] VITALS: BP 103/62; PULSE 69; RESP 18; TEMP 36.8; O2SAT 99
== END 2023-06-11 11:40 | disposition home or self-care (01) ==
PROVIDERS: PCP Internal Medicine; Visit Provider Internal Medicine Gastroenterology
PROC: 0DJD8ZZ Inspection of Lower Intestinal Tract, Via Natural or Artificial Opening Endoscopic (ICD-10-PCS; CPT 45378; principal; 2023-06-11 09:40)
DX: K59.00 Constipation, unspecified (principal); R10.31 Right lower quadrant pain; K63.5 Polyp of colon; K64.1 Second degree hemorrhoids; K52.9 Noninfective gastroenteritis and colitis, unspecified; K63.89 Other specified diseases of intestine; I10 Essential (primary) hypertension; E78.2 Mixed hyperlipidemia; R06.81 Apnea, not elsewhere classified; R06.83 Snoring; R06.02 Shortness of breath; Z87.891 Personal history of nicotine dependence; Z88.8 Allergy status to other drugs, medicaments and biological substances; Z88.5 Allergy status to narcotic agent; Z79.899 Other long term (current) drug therapy
CPT/HCPCS: 45380; 88305

== ENCOUNTER → 2023-06-11 07:38 | Outpatient (BNV) | payer OTHER, SELFPAY | PROVIDERS: PCP Internal Medicine; Visit Provider Internal Medicine Gastroenterology | DX: K59.00 Constipation, unspecified (principal); R10.31 Right lower quadrant pain; K63.5 Polyp of colon; D64.9 Anemia, unspecified | CPT/HCPCS: 45380 ==

== ENCOUNTER 2023-06-19 09:07 | Outpatient (REF) | payer OTHER, SELFPAY ==
--- NOTE | ~2023-06-19 | MM_ITS ---
EXAMINATION: MM SCREENING DIGITAL BREAST TOMOSYNTHESIS, BILATERAL CLINICAL INFORMATION: Screening. Asymptomatic. COMPARISON: Mammography: This study is compared with prior exams dating back to 2018. TECHNIQUE: Digital breast tomosynthesis is performed in both the craniocaudal and mediolateral oblique views along with computer-aided detection (CAD). Synthesized 2D images are generated from the tomosynthesis. FINDINGS: There are scattered areas of fibroglandular density (ACR BI-RADS breast composition Category b). There are no significant masses, abnormal calcifications, or other abnormalities. There are multiple, unchanged small, well-circumscribed masses in the upper outer quadrant of the left breast which have been shown to represent benign cysts in the past. MM/MM tomosynthesis screening BI IMPRESSION: No mammographic evidence of malignancy. ASSESSMENT: BI-RADS BI-RADS 2 - Benign Findings RECOMMENDATION: Routine annual mammography screening. 1 year F/U This examination should not preclude the clinical evaluation of a suspicious palpable abnormality. This patient's information was entered into a reminder system with a target due date for their next mammogram.
== END 2023-06-19 09:08 | disposition home or self-care (01) ==
LOC: HO.MAMMO 09:07
PROVIDERS: PCP Internal Medicine; Visit Provider Internal Medicine
DX: Z12.31 Encounter for screening mammogram for malignant neoplasm of breast (principal); Z13.820 Encounter for screening for osteoporosis; Z78.0 Asymptomatic menopausal state
CPT/HCPCS: 77063; 77067; 77080

== ENCOUNTER → 2023-06-19 09:15 | Outpatient (BNV) | payer OTHER, SELFPAY | PROVIDERS: PCP Internal Medicine; Visit Provider Radiology Diagnostic Radiology | DX: Z12.31 Encounter for screening mammogram for malignant neoplasm of breast (principal) | CPT/HCPCS: 77063; 77067 ==

== ENCOUNTER 2023-07-08 08:19 | Outpatient (AMB) | payer OTHER, SELFPAY ==
--- NOTE | 2023-07-08 08:21 | A.OFFVIS_ITS ---
Intake Vital Signs 07/08/23 08:32 Height 5 ft 4 in Weight 210 lb BMI 36.0 BP 119/61 Blood Pressure Location Lt brachial Position Sitting Pulse 81 Intake Visit Reasons: Colonoscopy follow up Intake Note: Patient follow up for Colonoscopy results. Patient cc: acid reflex, and denies any other GI issues. [employer] Team Member Required: No Accompanied by: Self / Same As Patient Allergies oxycodone [From PERCOCET] Allergy (Severe, Verified 07/08/23 08:30) VOMITING ibuprofen [IBUPROFEN] Allergy (Intermediate, Verified 07/08/23 08:30) RASH/HIVES, rash naproxen Allergy (Intermediate, Verified 07/08/23 08:30) Rash Codeine Sulfate Allergy (Unknown, Uncoded 05/28/23 09:34) / itchy HPI Colonoscopy follow up HPI Details Assessment & Plan (1) Right lower quadrant abdominal pain: Comment: Resolved well with dicyclomine Code(s): R10.31 - Right lower quadrant pain Plan: She has not yet heard on the colonoscopy. She is having a very good response to the dicyclomine and it happy with this. Her constipation is well controlled on senna Colace and simethicone. We review her cardiac workup and there does not appear to be any reason to be concerned about heart attack and it makes GERD more likely in the differential diagnosis for her intermittent chest pain. However, this does not rule out musculoskeletal causes such as costochondritis. Will see what the continued response is to having good bowel motility as she is not on any acid reducing medication. ROV after colonoscopy (2) Constipation: Code(s): K59.00 - Constipation, unspecified (3) Abdominal cramping: Code(s): R10.9 - Unspecified abdominal pain COLONOSCOPY 06/11/23 Findings: Terminal Ileum- few samll erosions seen with erythema, bx taken Melanosis coli noted Bx taken from right and left colon in separate jars Cecum: 3-4 mm sessile polyp removed with cold forceps Ascending Colon: normal Transverse Colon -normal Descending Colon:normal Sigmoid Colon: normal Rectum: Retroflexion with medium sized internal hemorrhoids, grade II Anorectum - normal Impression and Post Procedure Diagnosis: polyp internal hemorrhoids ileitis melanosis coli Plan: High fiber diet leaflet Avoid straining at stool, epsom salts and sitz bath, anusol supps or cream Repeat Colonoscopy in 5-7 years if adenomatous polyp, if benign then 10 yrs or earlier if clinically indicated confirm nsaid hx, consider w/u for crohns if ongoing sx, can get CTe or VCE BIOPSY Received: 06/11/23 Diagnosis A. Colon, cecum, polyp, biopsy: Clinically polypoid colonic mucosa noted; negative for a hyperplastic or neoplastic process. B. Colon, right side, biopsy: Active colitis mild activity (see comment). C. Terminal ileum, biopsy: Ileal mucosa within normal limits; negative for active or chronic ileitis. D. Colon, left side, biopsy: Colonic mucosa with melanosis coli, otherwise within normal limits; negative for active, chronic or microscopic colitis. COMMENT (B): Neither chronic mucosal injury nor granulomas are identified. The differential diagnosis includes infection, drug/medication effect or early idiopathic inflammatory bowel disease. Clinical correlation is advised EKG 03/10/23? Vent. Rate : 068 BPM ? ? Atrial Rate : 068 BPM ?? P-R Int : 148 ms? QRS Dur : 080 ms ? ? QT Int : 364 ms ? ? ? P-R-T Axes : 031 035 037 degrees ?? QTc Int : 387 ms ? Normal sinus rhythm Normal ECG No previous ECGs available ? Referred By: Marilyn Rosenberg ? Electronically Signed By:MATILDE COBOS CHEST X-RAY 03/16/23 FINDINGS: No significant abnormality is noted involving the heart, lungs, mediastinum, bony thorax or soft tissues. XR/XR chest 2V IMPRESSION: Unremarkable examination. TODAY'S VISIT The procedure.. The should be repeated in 10 years. The procedure was well tolerated. The results were explained and the patient is agreeable to the follow-up interval as stated. The bowel pattern has returned to normal. Education was provided to tell any 1st degree relatives about their findings to be sure that they are screened by age 45. Educated that they will be put on a recall list when it is time for their repeat scope but should they move out of state or away from the hospital they will need to remember along with their primary to repeat the procedure in a timely fashion to avoid any adverse complications. She would prefer to follow up and have the GI medication rx by her PCP, but if not she is welcome to return. She asked me to review the echocardiogram that cardiology ordered for her and I tell her that I am not a home appliance technician so I cannot give her any advice about how her heart murmur we will progress but it does show mild calcification and thickening in the aortic valve which likely accounts for her murmur. I strongly encouraged her to continue to follow-up with Cardiology. prn. [facility] Medical History (Updated 07/08/23 @ 10:10 by JAMSHID Trevizo) Right lower quadrant abdominal pain Abdominal cramping Pre-op examination Pain in right hip Essential hypertension Former moderate cigarette smoker (10-19 per day) Witnessed apneic spells Loud snoring Shortness of breath on exertion Hx of abnormal cervical Pap smear Mixed dyslipidemia Surgical History History of colposcopy Family History Mother Cervical cancer Father Substance use disorder Brother Substance use disorder Brother Substance use disorder Sister Substance use disorder Social History Housing: House Alcohol intake: never Patient Tobacco Use Status: Former Tobacco user e-Cigarette/Vaping Use: Never Used Second Hand Smoke Exposure: Yes service: No Current occupational status: unemployed Sexual orientation: Straight/Heterosexual Gender identity: Female Cognitive needs: No Hearing needs: No Vision needs: Yes Review of Systems Const Denies fatigue, Denies fever(s), Denies night sweats, Denies poor appetite and Denies weight loss ENT Reports Normal hearing present, Denies dental pain, Denies dysphagia, Denies hearing loss, Denies mouth pain, Denies odynophagia, Denies throat swelling, Denies tongue swelling and Reports other (Dentition adequate) Card Reports no additional complaints and Reports dyspnea on exertion Resp Reports dyspnea on exertion GI Denies abdominal pain, Denies melena, Reports bloating, Denies hematochezia, Reports constipation, Reports GI cramping, Denies dysphagia, Denies excessive flatus, Denies early satiety, Denies heartburn, Denies diarrhea, Denies nausea, Denies odynophagia, Denies vomiting and Denies hematemesis Skin/Breast Denies pruritus, Denies lesions, Denies rash and Denies jaundice Neuro Reports Normal hearing present and Denies Abnormal speech present Endo Denies fatigue Aller/Immun Denies throat swelling and Denies tongue swelling Physical Exam Vital Signs: Last Vital Signs Pulse 81 07/08/23 08:32 BP 119/61 07/08/23 08:32 BMI result Body Mass Index 36.0 Const General: cooperative, no acute distress, well developed and well groomed Nutritional Appearance: well nourished and obese morbidly obese Orientation/consciousness: oriented to person, oriented to place and oriented to time Limitations: No language barrier and ambulation with cane HEENT Head: Yes normocephalic and Yes atraumatic Eyes General: appearance normal, both eyes and all related structures Pupils: Equal, round and reactive pupils present Neck Neck: Yes normal visual inspection and Yes no lymphadenopathy Thyroid: Thyroid normal Resp Effort & Inspection: normal respiratory effort and able to speak in complete sentences Auscultation: clear to auscultation bilaterally Cardio Rate: regular rate Rhythm: regular rhythm Heart sounds: Normal, physiologic split S2 sound present Peripheral pulses: radial pulses present and posterior tibial pulses present GI Inspection: No distended, Yes Abdominal panniculus present and Yes obesity Palpation (GI): Soft to palpation, nontender, no guarding, not rigid and No hepatosplenomegaly present Percussion: Yes normal to percussion Auscultation: normal bowel sounds Rectal Exam - Female: deferred Skin General skin exam: no rashes or lesions noted, turgor normal, skin not dry, no jaundice, No spider nevi and no striae Rashes: no rashes Nails: normal Neuro General: oriented to person, oriented to place and oriented to time Cranial nerves: Yes Equal, round and reactive pupils present and Yes Normal hearing present Speech: No Abnormal speech present Extrem General: Yes normal to inspection, No clubbing, No cyanosis and No edema Psych Appearance: grossly normal and well kempt Mental Status: mental status grossly normal Speech and movement: Normal speech and movement present Affect: normal affect Attitude: cooperative Thought process: Normal thought process present and not confabulating Thought content: Normal thought content present Insight: Limited insight present (Psych) Judgement: Limited judgement present (Psych) Results Reviewed Results Reviewed: COLONOSCOPY 06/11/23 Findings: Terminal Ileum- few samll erosions seen with erythema, bx taken Melanosis coli noted Bx taken from right and left colon in separate jars Cecum: 3-4 mm sessile polyp removed with cold forceps Ascending Colon: normal Transverse Colon -normal Descending Colon:normal Sigmoid Colon: normal Rectum: Retroflexion with medium sized internal hemorrhoids, grade II Anorectum - normal Impression and Post Procedure Diagnosis: polyp internal hemorrhoids ileitis melanosis coli Plan: High fiber diet leaflet Avoid straining at stool, epsom salts and sitz bath, anusol supps or cream Repeat Colonoscopy in 5-7 years if adenomatous polyp, if benign then 10 yrs or earlier if clinically indicated confirm nsaid hx, consider w/u for crohns if ongoing sx, can get CTe or VCE BIOPSY Received: 06/11/23 Diagnosis A. Colon, cecum, polyp, biopsy: Clinically polypoid colonic mucosa noted; negative for a hyperplastic or neoplastic process. B. Colon, right side, biopsy: Active colitis mild activity (see comment). C. Terminal ileum, biopsy: Ileal mucosa within normal limits; negative for active or chronic ileitis. D. Colon, left side, biopsy: Colonic mucosa with melanosis coli, otherwise within normal limits; negative for active, chronic or microscopic colitis. COMMENT (B): Neither chronic mucosal injury nor granulomas are identified. The differential diagnosis includes infection, drug/medication effect or early idiopathic inflammatory bowel disease. Clinical correlation is advised EKG 03/10/23? Vent. Rate : 068 BPM ? ? Atrial Rate : 068 BPM ?? P-R Int : 148 ms? QRS Dur : 080 ms ? ? QT Int : 364 ms ? ? ? P-R-T Axes : 031 035 037 degrees ?? QTc Int : 387 ms ? Normal sinus rhythm Normal ECG No previous ECGs available ? Referred By: Marilyn Rosenberg ? Electronically Signed By:MATILDE COBOS Echocardiogram Aortic Valve There is mild calcification of the aortic valve. There is mild thickening of the aortic valve. There is no aortic valve stenosis. There is mild aortic valve regurgitation. Assessment & Plan Assessment & Plan (1) Ileitis: Comment: Was seen on her 2017 and her 2022 colonoscopy but she has no diarrheal syndromes in fact suffers with constipation so this likely is prep artifact Code(s): K52.9 - Noninfective gastroenteritis and colitis, unspecified Plan: The procedure.. The should be repeated in 10 years. The procedure was well tolerated. The results were explained and the patient is agreeable to the follow-up interval as stated. The bowel pattern has returned to normal. Education was provided to tell any 1st degree relatives about their findings to be sure that they are screened by age 45. Educated that they will be put on a recall list when it is time for their repeat scope but should they move out of state or away from the hospital they will need to remember along with their primary to repeat the procedure in a timely fashion to avoid any adverse complications. She would prefer to follow up and have the GI medication rx by her PCP, but if not she is welcome to return. She asked me to review the echocardiogram that cardiology ordered for her and I tell her that I am not a home appliance technician so I cannot give her any advice about how her heart murmur we will progress but it does show mild calcification and thickening in the aortic valve which likely accounts for her murmur. I strongly encouraged her to continue to follow-up with Cardiology. prn. (2) Aortic systolic murmur on examination: Code(s): I35.8 - Other nonrheumatic aortic valve disorders Medications: Refilled dicyclomine 10 mg PO QID 120 caps 6RF K59.00 - Constipation, unspecified, R10.9 - Unspecified abdominal pain sennosides (Senokot) 17.2 mg (2 x 8.6 mg) PO DAILY 60 tabs 6RF Coding Level of Care Code Est Pt Level 4 (31860) Diagnoses Ileitis K52.9 Aortic systolic murmur on examination I35.8
[2023-07-08 08:32] VITALS: BP 119/61; PULSE 81; BMI 36.0
== END 2023-07-08 09:32 | disposition home or self-care (01) ==
PROVIDERS: PCP Internal Medicine; Visit Provider Nurse Practitioner
DX: K52.9 Noninfective gastroenteritis and colitis, unspecified (principal); I35.8 Other nonrheumatic aortic valve disorders
CPT/HCPCS: 99214

== ENCOUNTER → 2023-07-08 08:19 | Outpatient (BNVA) | payer OTHER, SELFPAY | PROVIDERS: PCP Internal Medicine; Visit Provider Nurse Practitioner ==

== ENCOUNTER 2023-08-11 11:12 | Outpatient (AMB) | payer OTHER, SELFPAY ==
--- NOTE | 2023-08-11 12:11 | AM.OFFVISNUR ---
Intake Intake Visit Reasons: Flu Vaccine Intake Note: pt came in for the flu Allergies oxycodone [From PERCOCET] Allergy (Severe, Verified 07/08/23 08:30) VOMITING ibuprofen [IBUPROFEN] Allergy (Intermediate, Verified 07/08/23 08:30) RASH/HIVES, rash naproxen Allergy (Intermediate, Verified 07/08/23 08:30) Rash Codeine Sulfate Allergy (Unknown, Uncoded 05/28/23 09:34) / itchy Office Procedures Flu Questionnaire Does the patient have a severe egg allergy?: No Does the patient have severe life threatening allergies?: No Does the patient have a fever or illness today?: No Has the patient ever had Guillain-[place] Syndrome?: No Has the patient ever had any past reaction to a flu shot?: No Immunizations flu vacc [id number] 6mos up(PF) 60 mcg(15 mcgx4)/0.5 mL IM syringe Performing Provider: Melita Hurd MD Performing Location: [facility] Administered by: Suzan Arteaga CMA on 08/11/23 12:17 Dose Route Admin Location Dispensed Lot Number Expiration Date NDC [employer] 0.5 mL IM Left Deltoid 0.5 mL [id number] 03/20/24 29605-250-24 [employer] VIS Given Date VIS Provided VIS Publication Date 08/11/23 Single Vaccine 21 Eligibility Eligibility Date Funding Source Not [facility] Eligible 08/11/23 Private Coding Assessment & Plan Assessment & Plan Orders: Orders Influenza [id number] Immunization Today Z23 - Encounter for immunization
== END 2023-08-11 12:45 | disposition home or self-care (01) ==
PROVIDERS: PCP Internal Medicine; Visit Provider Internal Medicine
DX: Z23 Encounter for immunization (principal)
CPT/HCPCS: 90471; 90686

== ENCOUNTER 2023-09-18 13:12 | Outpatient (AMB) | payer OTHER, SELFPAY ==
[2023-09-18 13:28] VITALS: BP 120/72; PULSE 78; BMI 37.5
--- NOTE | 2023-09-18 13:28 | A.OFFVIS_ITS ---
Intake Vital Signs 09/18/23 13:28 Height 5 ft 4 in Weight 218 lb 11.177 oz BMI 37.5 BP 120/72 Blood Pressure Location Lt brachial Position Sitting Pulse 78 Pulse Source Monitor Intake Visit Reasons: follow up G[employer] Elev[employer] Agent Required: No Allergies oxycodone [From PERCOCET] Allergy (Severe, Verified 09/18/23 13:33) VOMITING ibuprofen [IBUPROFEN] Allergy (Intermediate, Verified 09/18/23 13:33) RASH/HIVES, rash naproxen Allergy (Intermediate, Verified 09/18/23 13:33) Rash Codeine Sulfate Allergy (Unknown, Uncoded 08/17/23 23:39) / itchy Medication List - Last Reconciled 09/18/23 by Maru Barrientos NP-C acetaminophen (Tylenol) 650 mg (2 x 325 mg) PO Q6H PRN atorvastatin 20 mg PO DAILY 90 days calcium carbonate (Calcium 500) 500 mg PO DAILY cholecalciferol (vitamin D3) 50 mcg PO DAILY coenzyme Q10 (Co Q-10) 10 mg PO DAILY dicyclomine 10 mg PO QID lisinopril 5 mg PO DAILY sennosides (Senokot) 17.2 mg (2 x 8.6 mg) PO DAILY simethicone 180 mg PO TID 30 days HPI follow up HPI Details Kristan is a 63-year-old female with past medical history of hypertension, hyperlipidemia, prior smoking was recently seen for consultation for heart murmur. She underwent an echocardiogram and now presents for follow- up. Today she reports that she has been feeling generally well. She denies any chest discomfort at rest or with activity. No concerning shortness of breath, palpitations, presyncope, syncope, PND, orthopnea or edema. She reports good activity tolerance. Takes all meds as directed. [facility] Medical History Pain in right hip Essential hypertension Former moderate cigarette smoker (10-19 per day) Witnessed apneic spells Loud snoring Shortness of breath on exertion Hx of abnormal cervical Pap smear Mixed dyslipidemia Surgical History History of colposcopy Family History Mother Cervical cancer Father Substance use disorder Brother Substance use disorder Brother Substance use disorder Sister Substance use disorder Social History Housing: House Alcohol intake: never Patient Tobacco Use Status: Former Tobacco user e-Cigarette/Vaping Use: Never Used Second Hand Smoke Exposure: Yes service: No Current occupational status: unemployed Sexual orientation: Straight/Heterosexual Gender identity: Female Cognitive needs: No Hearing needs: No Vision needs: Yes Review of Systems Const All systems reviewed & are unremarkable except as noted in HPI and below ENT Denies dizziness Card Denies chest pain, Denies chest pain at rest, Denies chest pain with activity, Denies rapid heart rate, Denies pedal edema, Denies edema, Denies leg edema, Denies lightheadedness, Denies palpitations, Denies dyspnea, Denies dyspnea on exertion and Denies orthopnea Resp Denies cough, Denies dyspnea and Denies dyspnea on exertion GI Denies hematochezia and Denies change in stool character Musc Denies abnormal gait, Denies limited range of motion, Denies muscle cramps, Denies muscle weakness, Denies numbness, Denies radiating pain into limb, Denies stiffness and Denies tingling Neuro Denies abnormal gait, Denies dizziness, Denies numbness and Denies tingling Endo Denies palpitations Physical Exam Vital Signs: Last Vital Signs Pulse 78 09/18/23 13:28 BP 120/72 09/18/23 13:28 BMI result Body Mass Index 37.5 Const General: cooperative, healthy appearing, comfortable and no acute distress Orientation/consciousness: patient oriented x3 Neck Neck: Yes normal visual inspection Resp Effort & Inspection: normal respiratory effort Auscultation: clear to auscultation bilaterally, no crackles, no rales, no rhonchi and no wheezes Cardio Jugular venous distension: no JVD Rate: regular rate Rhythm: regular rhythm Heart sounds: S1 normal heart sound present, S2 normal heart sound present, Murmur heart sound present (systolic) and no rubs Skin General skin exam: no rashes or lesions noted Neuro General: patient oriented x3 Extrem General: Yes normal to inspection, No no pedal edema and No calf tenderness Psych Appearance: grossly normal Mental Status: mental status grossly normal Speech and movement: Normal speech and movement present Office Procedures EKG Details: Today, read by me, normal sinus rhythm with sinus arrhythmia, rate 78, QTC 414 milliseconds [id number], Complete Assessment & Plan Assessment & Plan (1) Aortic systolic murmur on examination: Code(s): I35.8 - Other nonrheumatic aortic valve disorders Plan: Systolic murmur noted on examination. Patient underwent a echocardiogram on 05/29/2023 showing EF 55-60%, fibrocalcific aortic valve with mild aortic regurgitation. Reviewed this finding with her. Recommend good cholesterol and blood pressure control. Continue to avoid cigarette use. Continue physical activity as tolerated. Will plan for repeat echo 1 year from last, due Se ptember 2023. (2) Aortic calcification: Code(s): I70.0 - Atherosclerosis of aorta Plan: As above (3) Essential hypertension: Code(s): I10 - Essential (primary) hypertension Plan: Well controlled at present. Continue lisinopril (4) Mixed dyslipidemia: Code(s): E78.2 - Mixed hyperlipidemia Plan: [place] LDL goal less than 100. Labs done 01/09/2023 showed LDL 110. AST and ALT are normal. She is currently on atorvastatin 20 mg daily tells me she has been on that dose for some time. Will have her increase atorvastatin up to 40 mg daily. PCP has lab orders in place for lipid profile. Will send prescription for the 40 mg tablets. Refills can be made by PCP. Patient informed that if she does develop myalgias on this dose she can return to her 20 mg daily dose. Will forward this note to her PCP for review. Plan Time spent on chart review, documentation, interview and assessment Orders: Orders CA echo transthoracic complete 05/30/24 I70.0 - Atherosclerosis of aorta Medications: New atorvastatin dose increased - further refills by PCP 40 mg PO BEDTIME 90 tabs 1RF Coding Level of Care Code Est Pt Level 4 (93521) Diagnoses Aortic systolic murmur on examination I35.8 Aortic calcification I70.0 Essential hypertension I10 Mixed dyslipidemia E78.2 CPT Codes EKG - CPT: [id number], Complete ([id number]) Time Spent (min) 28
== END 2023-09-18 13:56 | disposition home or self-care (01) ==
PROVIDERS: PCP Internal Medicine; Visit Provider Nurse Practitioner Family
DX: I35.8 Other nonrheumatic aortic valve disorders (principal); I70.0 Atherosclerosis of aorta; I10 Essential (primary) hypertension; E78.2 Mixed hyperlipidemia
CPT/HCPCS: 93010; 99214

== ENCOUNTER → 2023-09-18 13:12 | Outpatient (BNVA) | payer OTHER, SELFPAY | PROVIDERS: PCP Internal Medicine; Visit Provider Nurse Practitioner Family | DX: I35.8 Other nonrheumatic aortic valve disorders (principal); I70.0 Atherosclerosis of aorta; I10 Essential (primary) hypertension; E78.2 Mixed hyperlipidemia; Z79.899 Other long term (current) drug therapy | CPT/HCPCS: 93005 ==

== ENCOUNTER 2024-01-13 06:51 | Outpatient (REF) | payer OTHER, SELFPAY ==
[2024-01-13 11:11] LABS: Alanine Aminotransferase 21 U/L (0-31); Anion Gap 12 (12-20); Aspartate Amino Transferase 20 U/L (5-31); Blood Urea Nitrogen 18 mg/dL (9-16); Calcium 9.1 mg/dL (8.4-10.2); Carbon Dioxide 24 mmol/L (22-29); Chloride 108 mmol/L (96-108); Cholesterol 159 mg/dL (<200); Estimated Glomerular Filt Rate > 60; Glucose Fasting 88 mg/dL (60-99); HDL Cholesterol 38 mg/dL (>40); LDL Cholesterol Calculated 100 mg/dL (<100); Potassium 3.6 mmol/L (3.3-5.1); Sodium 140 mmol/L (135-145); Triglycerides 109 mg/dL (<150)
[2024-01-13 11:20] LABS: Vitamin D 25-OH Total 61.4 ng/mL (>30)
== END 2024-01-13 06:52 | disposition home or self-care (01) ==
LOC: HO.HMGCLDS 06:51
PROVIDERS: PCP Internal Medicine; Visit Provider Internal Medicine
DX: E78.2 Mixed hyperlipidemia (principal); I10 Essential (primary) hypertension; Z78.0 Asymptomatic menopausal state
CPT/HCPCS: 36415; 80048; 80061; 82306; 84450; 84460

== ENCOUNTER 2024-01-21 07:54 | Outpatient (AMB) | payer OTHER, SELFPAY ==
[2024-01-21 08:02] VITALS: BP 128/80; PULSE 71; O2SAT 93; BMI 38.3
--- NOTE | 2024-01-21 08:02 | MHC.PC.OV ---
Vital Signs 01/21/24 08:02 Height 5 ft 4 in Weight 223 lb BMI 38.3 BP 128/80 Blood Pressure Location Lt brachial Position Sitting Pulse 71 Pulse Source Pulse Oximeter Pulse Oximetry (%) 93 Oxygen Delivery Method Room Air Intake Visit Reasons: PE Intake Note: Pt is here today for his PE: Last mammogram 06/19/23, papsmear 03/18/23, colonoscopy 06/11/23 Allergies oxycodone [From PERCOCET] Allergy (Severe, Verified 01/21/24 08:50) VOMITING ibuprofen [IBUPROFEN] Allergy (Intermediate, Verified 01/21/24 08:50) RASH/HIVES, rash naproxen Allergy (Intermediate, Verified 01/21/24 08:50) Rash Codeine Sulfate Allergy (Unknown, Uncoded 01/21/24 08:50) / itchy Medication List - Last Reconciled 01/21/24 by Melita Hurd MD acetaminophen (Tylenol) 650 mg (2 x 325 mg) PO Q6H PRN atorvastatin 40 mg PO BEDTIME cholecalciferol (vitamin D3) 50 mcg PO DAILY coenzyme Q10 (Co Q-10) 10 mg PO DAILY dicyclomine 10 mg PO QID lisinopril 5 mg PO DAILY sennosides (Senokot) 17.2 mg (2 x 8.6 mg) PO DAILY simethicone 180 mg PO TID 30 days Tobacco use date assessed: 01/21/24 Dental Screening Dental Screen Date: 01/21/24 Did you have a dental visit in the last 12 months?: Yes Did you have a dental problem in the last 6 months where you did not have access to dental care?: Yes Was dental information given to patient?: Patient has dentist HPI PE HPI Details 63-year-old lady with hypertension, hyperlipidemia, obstructive sleep apnea on CPAP, and diagnosed with IBS with constipation, here today for her physical exam she was recently found to have aortic sclerosis on echocardiogram, currently asymptomatic. She is up-to-date with her screening mammogram, due again this June 2024, up-to-date with her cervical cancer screening, sees Allyssa Jenkins at [facility], and is up-to-date with her screening colonoscopy. She has had COVID vaccines and gets yearly flu shot, up-to-date with her shingles vaccine and Tdap. Complains of slight irritation and itching inside right ear canal [facility] Medical History Pain in right hip Essential hypertension Former moderate cigarette smoker (10-19 per day) Witnessed apneic spells Loud snoring Shortness of breath on exertion Hx of abnormal cervical Pap smear Mixed dyslipidemia Surgical History History of colposcopy Family History Mother Cervical cancer Father Substance use disorder Brother Substance use disorder Brother Substance use disorder Sister Substance use disorder Social History Housing: House Alcohol intake: never Patient Tobacco Use Status: Former Tobacco user e-Cigarette/Vaping Use: Never Used Second Hand Smoke Exposure: Yes service: No Current occupational status: unemployed Sexual orientation: Straight/Heterosexual Gender identity: Female Cognitive needs: No Hearing needs: No Vision needs: Yes Questionnaire PHQ-9 Over the last 2 weeks, how often have you been bothered by any of the following problems? 1. Little interest or pleasure in doing things: not at all 2. Feeling down, depressed, or hopeless: not at all 3. Trouble falling or staying asleep, or sleeping too much: not at all 4. Feeling tired or having little energy: not at all 5. Poor appetite or overeating: not at all 6. Feeling bad about yourself - or that you are a failure or have let yourself or your family down: not at all 7. Trouble concentrating on things, such as reading the newspaper or watching television: not at all 8. Moving or speaking so slowly that other people could have noticed. Or the opposite - being so fidgety or restless that you have been moving around a lot more than usual: not at all 9. Thoughts that you would be better off or of hurting yourself in some way: not at all Total score: 0 Depression Screening Interpretation: Negative Depression Screening Done: Yes 50679 - PHQ-9 Billing: Yes Source: Developed by Drs. Jean Schwarz, Ghazala BDwight Ying and colleagues, with an educational tamica from [employer]. Thrive Questionnaire Date Thrive assessed: 01/14/23 I am a: Patient What is your living situation today?: I have a steady place to live Within the past 12 months, did the food you bought not last and you didn't have the money to get more?: Never true Within the past 12 months, did you worry whether your food would run out before you got money to buy more?: Never true Do you have trouble paying for medicines?: No Do you have trouble getting transportation to medical appointments?: No Do you have trouble paying your heating and electricity bill?: No Do you have trouble taking care of your child, family member or friend?: No Do you have trouble with day-to-day activities such as bathing, preparing meals, shopping, managing finances, etc.?: No Are you currently unemployed and looking for a job?: No Are you interested in more education?: No THRIVE Score: 0 AUDIT C Alcohol Use Questionnaire (AUDIT-C) 1. How often do you have a drink containing alcohol?: Never 3. How often do you have six or more drinks on one occasion?: Never Total Score: 0 JENNIE-7 AMB Questionnaire JENNIE-7 Date JENNIE - 7 assessed: 01/14/23 Feeling nervous, anxious, or on edge: 0 = Not at all Not being able to stop or control worryin = Not at all Worrying too much about different things: 0 = Not at all Trouble relaxin = Not at all Being so restless that it is hard to sit still: 0 = Not at all Becoming easily annoyed or irritable: 0 = Not at all Feeling afraid as if something awful might happen: 0 = Not at all Total JENNIE-7 score (0-4 normal; 5-9 mild; 10-14 moderate; 15-21 severe): 0 Source: Developed by Drs. Jean Schwarz, Dwight Duncan and colleagues, with an educational tamica from [employer]. JENNIE-7 Assessment Billing JENNIE-7 Assessment Tool: JENNIE-7 Assessment 05363 Review of Systems Const Reports as per HPI, Denies fatigue and Denies headache(s) Eyes Details: Goes to [facility] Reports requires corrective lenses ENT Reports as per HPI, Denies dizziness, Denies headache(s), Denies nasal discharge, Denies post nasal drip, Denies sinus pain and Denies sore throat Card Denies chest pain at rest, Denies chest pain with activity, Denies rapid heart rate, Denies pedal edema, Denies edema, Denies lightheadedness, Denies palpitations, Denies dyspnea and Denies dyspnea on exertion Resp Denies cough, Denies dyspnea and Denies dyspnea on exertion GI Denies abdominal pain, Denies melena, Denies bloating, Denies hematochezia, Reports constipation (Occasion) and Denies heartburn Reports no additional complaints Musc Denies abnormal gait, Reports back pain (Occasional low back), Denies limited range of motion, Denies muscle cramps, Denies muscle weakness, Denies numbness, Denies radiating pain into limb, Denies stiffness and Denies tingling Skin/Breast Denies breast skin changes, Denies breast pain, Denies breast mass and Denies rash Neuro Denies abnormal gait, Denies dizziness, Denies headache(s), Denies numbness and Denies tingling Psych Reports no additional complaints Endo Denies fatigue and Denies palpitations Reese/Lymph Reports no additional complaints Aller/Immun Reports no additional complaints Physical exam (Primary Care) Vital Signs: Last Vital Signs Pulse 71 01/21/24 08:02 BP 128/80 01/21/24 08:02 Pulse Ox 93 01/21/24 08:02 Oxygen Delivery Method Room Air 01/21/24 08:02 BMI result Body Mass Index 38.3 BMI Assessment/Plan discussion: High BMI High, discussed plan: lifestyle, weight reduction, dietary and physical activity Tobacco/Smoking Status: Tobacco use Status Tobacco use date assessed 01/21/24 01/21/24 08:05 Patient Tobacco Use Status Former Tobacco user 01/21/24 08:05 e-Cigarette/Vaping Use Never Used 01/21/24 08:05 Depression Screening Interpretation: Negative Thrive Assessment: Date of Thrive Assessment Date Thrive assessed 01/14/23 01/21/24 08:05 Advance Care Planning discussion: Completed/Scanned Date of discussion: 01/21/24 Who was present: Patient Forms completed: Health Care Proxy Time spent: 16-45 minutes Actual minutes spent: 16 Const General: comfortable and alert Nutritional Appearance: obese Orientation/consciousness: patient oriented x3 HENMT Ears: hearing grossly normal bilaterally, TM's normal bilaterally and Abnormal EAC present (Erythematous swelling in right ear canal) General nose exam: Normal external nose present and No nasal discharge present Face and sinus: Yes sinuses nontender and Yes face symmetric Mouth: Normal oral and palatal mucosa present, oropharynx normal and moist mucous membranes Eyes General: appearance normal, both eyes and all related structures Neck Neck: Yes full ROM, Yes no lymphadenopathy and Yes supple Chest Breast/axilla palpation: normal palpation of the breasts Resp Auscultation: clear to auscultation bilaterally Cardio Rate: regular rate Rhythm: regular rhythm Heart sounds: S1 normal heart sound present and S2 normal heart sound present Bruits: no abdominal aortic bruits GI Palpation (GI): No Abdominal aortic bruit present, Soft to palpation, nontender, no guarding and no masses General: Yes no CVA tenderness Back/Spine/Pelvis Back: no CVA tenderness and No back tenderness Skin General skin exam: no rashes or lesions noted Neuro General: patient oriented x3 Extrem General: Yes full ROM, Yes no joint enlargement, Yes no clubbing, cyanosis or edema and Yes normal gait Psych Appearance: grossly normal and well kempt Mental Status: mental status grossly normal Speech and movement: Normal speech and movement present Affect: normal affect Attitude: cooperative Thought process: Normal thought process present Results Reviewed Results Reviewed: Name: Kristan Holcomb Age/Sex: 63/F : 1960 Unit#: [id number] Attend Dr: Melita Hurd MD Re01/13/24 Status: DEP [facility]F [facility] Disch: SPEC : [id number] NASEEM: 01/13/24 STATUS: COMP REQ : [id number] RECD: 01/13/[address]: Melita Hurd MD COMP: 01/13/24 ENTERED: 01/13/[address]: ORDERED: Met Prof Fast, AST, ALT, Lipid Panel, Vitamin D 25-OH Test Result Flag Reference Sodium 140 135-145 mmol/L Potassium 3.6 3.3-5.1 mmol/L CL 108 96-108 mmol/L CO2 24 22-29 mmol/L Gap 12 12-20 BUN 18 H 9-16 mg/dL Creat 0.92 0.5-1.4 mg/dL EGFR > 60 NOTE: For -Australian individuals, multiply the result by 1.210. Chronic Kidney Disease: Estimated GFR < 60 mL/min/1.73m2 Severe Kidney Disease: Estimated GFR < 15 mL/min/1.73m2 FBS 88 60-99 mg/dL CA 9.1 8.4-10.2 mg/dL AST (GOT) 20 5-31 U/L ALT (GPT) 21 0-31 U/L Triglyceride 109 <150 mg/dL Desirable Triglyceride: less than 150 mg/dL Borderline High Triglyceride 150-199 mg/dL High Triglyceride: 200-499 mg/dL Very High Triglyceride: greater than or equal to 5OO mg/dL Cholesterol 159 <200 mg/dL Desirable Cholesterol: less than 200 mg/dL Borderline High Cholesterol: 200-239 mg/dL High Cholesterol: greater than 239 mg/dL LDL Calculated 100 H <100 mg/dL Desirable LDL: less than 100 mg/dL Near Optimal/Above Optimal LDL: 110-129 mg/dL Borderline High LDL: 130-159 mg/dL High LDL: 160-189 mg/dL Very High LDL: greater than or equal to 190 mg/dL HDL 38 L >40 mg/dL Desirable HDL: greater than 40 mg/dL Note: This HDL assay may give artificially low results in patients with liver disease. Vit D 25-OH Tot 61.4 >30 ng/mL Health Based Reference Values* < 20 ng/mL Deficient 20-30 ng/mL Insufficient > 30 ng/mL Sufficient Assessment and Plan Assessment & Plan (1) Annual visit for general adult medical examination with abnormal findings: Code(s): Z00.01 - Encounter for general adult medical examination with abnormal findings Plan: Reviewed recent fasting lab results with patient , continue with regular. dental visit every 6 months and regular eye exams, at least every 2 years. Take adequate calcium in diet and vitamin-D 3 at 2000 IU per cap once a day, in addition to weight-bearing exercises to help maintain good muscle tone and weight control. Instructed to do self-breast exam, and continue with yearly mammogram, has appointment later this year, up-to-date with her cervical cancer screening, up-to-date with her screening colonoscopy, up-to-date with her vaccine. (2) Acute otitis externa of right ear: Code(s): H60.501 - Unspecified acute noninfective otitis externa, right ear Qualifiers: Otitis externa type: unspecified type Qualified Code(s): H60.501 - Unspecified acute noninfective otitis externa, right ear Plan: Prescription sent for ciprofloxacin-hydrocortisone, to instill as directed in right ear canal for 5 days, return to clinic if no improvement of symptoms after treatment (3) Mixed dyslipidemia: Code(s): E78.2 - Mixed hyperlipidemia Plan: Reviewed recent fasting lipid profile with patient with levels at goal . Continue atorvastatin 40 mg daily , in addition to adherence to low-cholesterol diet and regular exercise, at least 30 minutes 3 to 4 times a week. Advised patient to make healthy food choices, eat more fruits, vegetables, whole grains, wild caught fish and low-fat dairy. Limit amount of meat and fried or fatty food products, as well as processed foods and fast foods. Follow-up scheduled with repeat fasting lipid panel in months. (4) Essential hypertension: Code(s): I10 - Essential (primary) hypertension Plan: Blood pressure at goal of less than 130/80. Continue with lisinopril 5 mg daily. Reinforced importance of following a low sodium diet, getting regular exercise, and lowering stress levels. (5) YESIKA (obstructive sleep apnea): Comment: Mild degree of YESIKA, The total AHI was 7/hr and oxygen alaina was 82% Code(s): G47.33 - Obstructive sleep apnea (adult) (pediatric) Plan: Currently on CPAP (6) Aortic calcification: Code(s): I70.0 - Atherosclerosis of aorta Plan: Currently on atorvastatin with dose increased to 40 mg daily Orders: Orders Lipid Panel 05/22/24 E78.2 - Mixed hyperlipidemia, G47.33 - Obstructive sleep apnea (adult) (pediatric), I10 - Essential (primary) hypertension, I70.0 - Atherosclerosis of aorta, Z00.01 - Encounter for general adult medical examination with abnormal findings Alanine Aminotransferase 05/22/24 E78.2 - Mixed hyperlipidemia, G47.33 - Obstructive sleep apnea (adult) (pediatric), I10 - Essential (primary) hypertension, I70.0 - Atherosclerosis of aorta, Z00.01 - Encounter for general adult medical examination with abnormal findings Aspartate Amino Transferase 05/22/24 E78.2 - Mixed hyperlipidemia, G47.33 - Obstructive sleep apnea (adult) (pediatric), I10 - Essential (primary) hypertension, I70.0 - Atherosclerosis of aorta, Z00.01 - Encounter for general adult medical examination with abnormal findings Basic Metabolic Panel Fasting 05/22/24 E78.2 - Mixed hyperlipidemia, G47.33 - Obstructive sleep apnea (adult) (pediatric), I10 - Essential (primary) hypertension, I70.0 - Atherosclerosis of aorta, Z00.01 - Encounter for general adult medical examination with abnormal findings Vitamin D 25-OH Total 05/22/24 E78.2 - Mixed hyperlipidemia, G47.33 - Obstructive sleep apnea (adult) (pediatric), I10 - Essential (primary) hypertension, I70.0 - Atherosclerosis of aorta, Z00.01 - Encounter for general adult medical examination with abnormal findings Medications: New ciprofloxacin-hydrocortisone 0.2-1 % 3 drps otic (ears) Q12H 5 days 10 mL 0RF H60.501 - Unspecified acute noninfective otitis externa, right ear Refilled atorvastatin Last refill. Further refills to come from her PCP 40 mg PO BEDTIME 90 tabs 3RF dicyclomine 10 mg PO QID 120 caps 6RF K59.00 - Constipation, unspecified, R10.9 - Unspecified abdominal pain Coding Level of Care Code Est Pt Prev Care 40-64y(70692) Diagnoses Annual visit for general adult medical examination with abnormal findings Z00.01 Acute otitis externa of right ear, unspecified type H60.501 Otitis externa type: unspecified type Mixed dyslipidemia E78.2 Essential hypertension I10 YESIKA (obstructive sleep apnea) G47.33 Aortic calcification I70.0 Additional Codes JENNIE-7 Assessment Billing - JENNIE-7 Assessment Tool: JENNIE-7 Assessment 54411 ([id number]) Vital Signs *Quality* - Advance Care Planning discussion: Completed/Scanned ([id number]) Vital Signs *Quality* - Time spent: 16-45 minutes ([id number])
== END 2024-01-21 09:12 | disposition home or self-care (01) ==
PROVIDERS: Visit Provider Internal Medicine
DX: Z00.00 Encounter for general adult medical examination without abnormal findings (principal); I70.0 Atherosclerosis of aorta; H60.501 Unspecified acute noninfective otitis externa, right ear; E78.2 Mixed hyperlipidemia; I10 Essential (primary) hypertension; G47.33 Obstructive sleep apnea (adult) (pediatric)
CPT/HCPCS: 1123F; 99396; 99497

== ENCOUNTER 2024-03-30 08:49 | Outpatient (AMB) | payer OTHER, SELFPAY ==
--- NOTE | 2024-03-30 08:56 | MHC.OFFVIS ---
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 She is doing well with no concerns. Attempting to eat a healthy diet with calcium and vitamin D and stays active. Currently sexually active. Denies any vaginal dryness or irritation. STI testing offered; she declines. Last pap smear; 2019. Last mammogram; 2022. Colonoscopy is UTD. Denies any family history of breast, ovarian or colon cancer. [facility] Medical History Pain in right hip Essential hypertension Former moderate cigarette smoker (10-19 per day) Witnessed apneic spells Loud snoring Shortness of breath on exertion Hx of abnormal cervical Pap smear Mixed dyslipidemia Surgical History H/O hand surgery History of colposcopy Family History Mother Cervical cancer Father Substance use disorder Lung cancer Brother Substance use disorder Lung cancer Brother Substance use disorder Lung cancer Sister Substance use disorder Social History Housing: House Alcohol intake: never Patient Tobacco Use Status: Former Tobacco user e-Cigarette/Vaping Use: Never Used Second Hand Smoke Exposure: Yes service: No Current occupational status: unemployed Sexual orientation: Straight/Heterosexual Gender identity: Female Cognitive needs: No Hearing needs: No Vision needs: Yes Female Reproductive History Menstrual Menopause type: natural Total pregnancies: 1 Full term: 1 Number of Living Children: 1 Date of last pap smear: 03/17/23 (neg pap and hpv) History of abnormal pap smear: Yes (07/26 lgsil 09/26 colpo) Date of Mammogram: 06/19/23 (Birad 2) Date of last Bone Density Screenin06/19/23 Review of Systems Const All systems reviewed & are unremarkable except as noted in HPI and below Reports as per HPI Eyes Reports no additional complaints ENT Reports no additional complaints Card Reports no additional complaints Resp Reports no additional complaints GI Reports as per HPI and Reports no additional complaints Reports as per HPI Musc Reports no additional complaints Skin/Breast Reports as per HPI Neuro Reports no additional complaints Psych Reports no additional complaints Endo Reports no additional complaints Reese/Lymph Reports no additional complaints Aller/Immun Reports no additional complaints Physical Exam Vital Signs: Last Vital Signs BP 100/66 03/30/24 08:58 BMI result Body Mass Index 38.4 Const General: cooperative, healthy appearing, no acute distress, well developed and alert Orientation/consciousness: patient oriented x3 HEENT Head: Yes normal to inspection Eyes General: appearance normal, both eyes and all related structures Neck Neck: Yes normal visual inspection Thyroid: Thyroid normal Chest Chest palpation & inspection: normal inspection of the chest and other (no puckering, dimpling, peau de orange, retraction, discharge, masses) Breast/axilla inspection: normal inspection of the breasts Breast/axilla palpation: normal palpation of the breasts Resp Effort & Inspection: normal respiratory effort GI Inspection: Yes normal to inspection Palpation (GI): Soft to palpation Rectal Exam - Female: deferred General: Yes bladder normal to palpation External Female Exam: normal external appearance and normal appearance of the urethra Speculum Exam - Vagina: normal appearance of the vagina, normal palpation and normal vaginal discharge Speculum Exam - Cervix: normal appearance of the cervix and normal palpation Bimanual exam- vagina & uterus: normal bimanual exam, normal palpation, uterine size normal, bladder normal to palpation, normal palpation and non-tender Bimanual Exam- Adnexa, other: no masses Skin General skin exam: no rashes or lesions noted Rashes: no rashes Neuro General: patient oriented x3 Cognition (Neuro): normal cognition Extrem General: Yes normal to inspection Psych Attitude: cooperative Thought process: Normal thought process present Assessment & Plan Assessment & Plan (1) Encounter for well woman exam with routine gynecological exam: Code(s): Z01.419 - Encounter for gynecological examination (general) (routine) without abnormal findings Category: Medical Plan Discussed: Current recommendations for pap smears per ASCCP guidelines. Breast awareness, periodic self breast exams and yearly mammogram. Maintain a healthy lifestyle, well balanced diet including Calcium 1,200 mg and Vitamin D 600 IU daily, and routine exercise. Contact the office with any postmenopausal bleeding. Patient verbalizes understanding and agrees to the plan of care. She was given opportunity to ask questions and all questions were answered to the best of my ability. 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 This note is constructed using voice recognition software. While every effort has been made to ensure accuracy, supply chain logistics manager errors may have been included. Coding Level of Care Code Est Pt Prev Care 40-64y(15497) Diagnoses Encounter for well woman exam with routine gynecological exam Z01.419
[2024-03-30 08:58] VITALS: BP 100/66; BMI 38.4
== END 2024-03-30 09:31 | disposition home or self-care (01) ==
PROVIDERS: PCP Internal Medicine; Visit Provider Advanced Practice Midwife
DX: Z01.419 Encounter for gynecological examination (general) (routine) without abnormal findings (principal)
CPT/HCPCS: 99396

== ENCOUNTER → 2024-03-30 08:49 | Outpatient (BNVA) | payer OTHER, SELFPAY | PROVIDERS: PCP Internal Medicine; Visit Provider Advanced Practice Midwife ==

== ENCOUNTER → 2024-05-24 08:54 | Outpatient (REF) | payer OTHER, SELFPAY ==
--- NOTE | 2024-05-24 08:57 | CA_ITS ---
Transthoracic Echocardiogram Patient (Last, First, Middle): Kristan Holcomb L Gender: Female Date of : 1960 Age: 63 Procedure Date: 05/24/2024 Procedure Type: Transthoracic Echocardiogram Location: OP Height: 162.56 cm Weight: 95.26 kg BSA: 2.00 m2 Heart Rate: bpm BP: 130 / 72 mmHg Machine Learning Intern: TO Referring MD: Maru Barrienots [employer] Symptoms: E78.2 - Mixed hyperlipidemia Study Quality: Adequate ECG Rhythm: Sinus Conclusions: - The left ventricular systolic function is normal. The calculated ejection fraction is 67% by biplane method. - There is mild calcification of the aortic valve. There is mild aortic valve regurgitation. Findings Left Ventricle Normal left ventricular cavity size. There is normal left ventricular wall thickness. The left ventricular systolic function is normal. The calculated ejection fraction is 67% by biplane method. There is no evidence of regional wall motion abnormalities. Diastolic function is normal for age. LV peak GLS -21.1% (normal). Right Ventricle Normal right ventricular cavity size and systolic function. Atria Both atria are normal in size. Aortic Valve There is a normal trileaflet aortic valve. There is mild calcification of the aortic valve. There is no aortic valve stenosis. There is mild aortic valve regurgitation. Mitral Valve There is mild anterior mitral leaflet thickening. There is trace mitral valve regurgitation. There is no mitral valve stenosis. Pulmonic Valve The pulmonic valve is likely normal. Tricuspid Valve There is mild tricuspid valve regurgitation. There is no evidence of pulmonary hypertension. Great Vessels The asc aorta is normal in size. Venous The inferior vena cava is normal in size and collapses greater than 50% with inspiration. Pericardium/Pleural There is no evidence of pericardial effusion. Prior Study Comparison No significant change compared to prior study dated: 05/29/2023. Measurements 2D Linear Measurements IVSd: 0.96 0.6-0.9/0.6-1.0 cm LVIDd: 4.60 3.9-5.3/4.2-5.9 cm LVIDd Index: 2.30 2.4-3.2/2.2-3.1 cm/m2 LVIDs: 3.17 2.0-3.6 cm LVPWd: 0.81 0.7-1.1 cm LA Diam: 3.80 2.7-3.8/3.0-4.0 cm LAIDs Index: 1.90 1.5-2.3 cm/m2 LV Mass: 167.58 67-162/88-224 g LV Mass Index: 83.79 43-95/49-115 g/m2 LVOT Diam: 2.10 3.0+(-)1.3 cm 2D Systolic Function EF 4C: 65.50 >55% EF 2C: 66.50 >55% EF BiP: 66.70 >55% Mitral Valve MV VTI: 0.34 MV Pk Russ: 1.25 MV Mn Russ: 0.79 MV Pk Grad: 6.00 MV Mn Grad: 3.00 MV Pk E: 1.02 MV PK A: 0.93 MV Decel Time: 219.00 E/A: 1.10 E'Lateral: 9.36 E'Medial: 6.42 E/E' Med: 15.90 E/E' Lat: 10.90 PHT: 64.00 MVA PHT: 3.44 MVA Continuity: 2.22 Decel Rincon: 4.67 Aortic Valve AoV Pk Russ: 1.74 AoV Mn Russ: 1.16 AoV VTI: 0.39 AoV Pk Grad: 12.00 Aov Mn Grad: 6.00 CHELSY Cont.VTI: 1.94 AI Pk Russ: 3.76 AI Rincon: 2.09 LVOT LVOT Pk Russ: 1.04 LVOT Mn Russ: 0.65 LVOT VTI: 0.22 LVOT Pk Grad: 4.00 LVOT Mn Grad: 2.00 LVOT Diam: 2.10 LVOT Area: 3.46 Diastolic Function MV Pk E: 1.02 MV Pk A: 0.93 E/A: 1.10 E'Medial: 6.42 E/E' Med: 15.90 E' Laterial: 9.36 E/E' Lat: 10.90 Right Ventricle TAPSE (mm): 25.20 TVS' Russ: 13.70 Tricuspid Valve TR Pk Russ: 2.65 TR Pk Grad: 28.00 RA Press: 3.00 RVSP: 31.00 Great Vessels Aorta Sinus of Valsalva: 3.00 2.0-3.[address] Ridge: 2.51 1.7-3.4 cm Ao Asc: 3.40 2.1-3.4 cm Updated in Other Vendor System with Status of Final Jose De Jesus Pérez MD electronically signed on 05/24/2024 10:38:21 AM with status of Final
== END ==
LOC: HO.CARD 08:54
PROVIDERS: PCP Internal Medicine; Visit Provider Nurse Practitioner Family
DX: I70.0 Atherosclerosis of aorta (principal)
CPT/HCPCS: 93306; 93356

== ENCOUNTER → 2024-05-24 08:57 | Outpatient (BNV) | payer OTHER, SELFPAY | PROVIDERS: PCP Internal Medicine; Visit Provider Internal Medicine | DX: I35.1 Nonrheumatic aortic (valve) insufficiency (principal); I36.1 Nonrheumatic tricuspid (valve) insufficiency | CPT/HCPCS: 93306; 93356 ==

== ENCOUNTER 2024-06-13 08:13 | Outpatient (REF) | payer OTHER, SELFPAY ==
[2024-06-13 11:35] LABS: Alanine Aminotransferase 14 U/L (0-31); Anion Gap 11 (12-20); Aspartate Amino Transferase 16 U/L (5-31); Blood Urea Nitrogen 14 mg/dL (9-16); Calcium 9.3 mg/dL (8.4-10.2); Carbon Dioxide 25 mmol/L (22-29); Chloride 108 mmol/L (96-108); Cholesterol 159 mg/dL (<200); Estimated Glomerular Filt Rate > 60; Glucose Fasting 101 mg/dL (60-99); HDL Cholesterol 38 mg/dL (>40); LDL Cholesterol Calculated 97 mg/dL (<100); Sodium 140 mmol/L (135-145); Triglycerides 124 mg/dL (<150)
[2024-06-13 11:52] LABS: Vitamin D 25-OH Total 61.1 ng/mL (>30)
== END 2024-06-13 08:14 | disposition home or self-care (01) ==
LOC: HO.HMGCLDS 08:13
PROVIDERS: PCP Internal Medicine; Visit Provider Internal Medicine
DX: Z00.01 Encounter for general adult medical examination with abnormal findings (principal); I70.0 Atherosclerosis of aorta; G47.33 Obstructive sleep apnea (adult) (pediatric); I10 Essential (primary) hypertension; E78.2 Mixed hyperlipidemia
CPT/HCPCS: 36415; 80048; 80061; 82306; 84450; 84460

== ENCOUNTER 2024-06-20 11:30 | Outpatient (AMB) | payer OTHER, SELFPAY ==
[2024-06-20 11:40] VITALS: BP 100/64; PULSE 77; O2SAT 96; BMI 37.6
--- NOTE | 2024-06-20 11:40 | A.OFFPC_ITS ---
Vital Signs 06/20/24 11:40 Height 5 ft 4 in Weight 219 lb BMI 37.6 BP 100/64 Blood Pressure Location Lt brachial Position Sitting Pulse 77 Pulse Source Pulse Oximeter Pulse Oximetry (%) 96 Oxygen Delivery Method Room Air Intake Visit Reasons: 6M F/U Intake Note: Pt is here today for her 6mo. Allergies oxycodone [From PERCOCET] Allergy (Severe, Verified 06/20/24 12:04) VOMITING ibuprofen [IBUPROFEN] Allergy (Intermediate, Verified 06/20/24 12:04) RASH/HIVES, rash naproxen Allergy (Intermediate, Verified 06/20/24 12:04) Rash Codeine Sulfate Allergy (Unknown, Uncoded 06/20/24 12:04) / itchy Medication List - Last Reconciled 06/20/24 by Melita Hurd MD acetaminophen (Tylenol) 650 mg (2 x 325 mg) PO Q6H PRN atorvastatin 40 mg PO BEDTIME cholecalciferol (vitamin D3) 50 mcg PO DAILY dicyclomine 10 mg PO QID lisinopril 5 mg PO DAILY sennosides (Senokot) 17.2 mg (2 x 8.6 mg) PO DAILY simethicone 180 mg PO TID 30 days Tobacco use date assessed: 06/20/24 Dental Screening Dental Screen Date: 06/20/24 Did you have a dental visit in the last 12 months?: Yes Did you have a dental problem in the last 6 months where you did not have access to dental care?: Yes Was dental information given to patient?: Patient has dentist HPI 6M F/U HPI Details 64-year-old lady with hypertension, hype rlipidemia, obesity, IBS with constipation, and obstructive sleep apnea, here today for follow-up. She has been compliant with taking using her CPAP, has been taking her medicines as directed, has started exercising and following recommended diet. Has lost approximately 5 lb since last visit. Feels better, has more energy She is up-to-date with her screening mammogram and cervical cancer screening, latter done at [facility] [place] [place] [facility] she had bone density which showed normal findings last year. Up-to-date with her screening colonoscopy. [facility] Medical History Irritable bowel syndrome with constipation Pain in right hip Essential hypertension Former moderate cigarette smoker (10-19 per day) Witnessed apneic spells Loud snoring Shortness of breath on exertion Hx of abnormal cervical Pap smear Mixed dyslipidemia Surgical History H/O hand surgery History of colposcopy Family History Mother Cervical cancer Father Substance use disorder Lung cancer Brother Substance use disorder Lung cancer Brother Substance use disorder Lung cancer Sister Substance use disorder Social History Housing: House Alcohol intake: never Patient Tobacco Use Status: Former Tobacco user e-Cigarette/Vaping Use: Never Used Second Hand Smoke Exposure: Yes service: No Current occupational status: unemployed Sexual orientation: Straight/Heterosexual Gender identity: Female Cognitive needs: No Hearing needs: No Vision needs: Yes Female Reproductive History Menstrual Other: Sees [facility] [place] [place] [facility] for her routine Pap and pelvic exam Questionnaire PHQ-9 Over the last 2 weeks, how often have you been bothered by any of the following problems? 1. Little interest or pleasure in doing things: not at all 2. Feeling down, depressed, or hopeless: not at all 3. Trouble falling or staying asleep, or sleeping too much: not at all 4. Feeling tired or having little energy: not at all 5. Poor appetite or overeating: not at all 6. Feeling bad about yourself - or that you are a failure or have let yourself or your family down: not at all 7. Trouble concentrating on things, such as reading the newspaper or watching television: not at all 8. Moving or speaking so slowly that other people could have noticed. Or the opposite - being so fidgety or restless that you have been moving around a lot more than usual: not at all 9. Thoughts that you would be better off or of hurting yourself in some way: not at all Total score: 0 Depression Screening Interpretation: Negative Depression Screening Done: Yes 82520 - PHQ-9 Billing: Yes Source: Developed by Drs. Jean Schwarz, Ghazala Beard, Dwight Agosto and colleagues, with an educational tamica from [employer]. Thrive Questionnaire Date Thrive assessed: 06/20/24 I am a: Patient What is your living situation today?: I have a steady place to live Within the past 12 months, did the food you bought not last and you didn't have the money to get more?: I choose not to answer this question Within the past 12 months, did you worry whether your food would run out before you got money to buy more?: I choose not to answer this question Do you have trouble paying for medicines?: No Do you have trouble getting transportation to medical appointments?: No Do you have trouble paying your heating and electricity bill?: No Do you have trouble taking care of your child, family member or friend?: No Do you have trouble with day-to-day activities such as bathing, preparing meals, shopping, managing finances, etc.?: No Are you interested in more education?: No Please select the resources that you would like help with: None Currently or been in a relationship where the following occur: I choose not to answer THRIVE Score: 0 AUDIT C Alcohol Use Questionnaire (AUDIT-C) 1. How often do you have a drink containing alcohol?: Never Total Score: 0 JENNIE-7 AMB Questionnaire JENNIE-7 Date JENNIE - 7 assessed: 06/20/24 Feeling nervous, anxious, or on edge: 0 = Not at all Not being able to stop or control worryin = Not at all Worrying too much about different things: 0 = Not at all Trouble relaxin = Not at all Being so restless that it is hard to sit still: 0 = Not at all Becoming easily annoyed or irritable: 0 = Not at all Feeling afraid as if something awful might happen: 0 = Not at all Total JENNIE-7 score (0-4 normal; 5-9 mild; 10-14 moderate; 15-21 severe): 0 Source: Developed by Drs. Jean Schwarz, Ghazala Beard, Dwight Agosto and colleagues, with an educational tamica from [employer]. JENNIE-7 Assessment Billing JENNIE-7 Assessment Tool: JENNIE-7 Assessment 96276 Review of Systems Const Reports no additional complaints and Reports weight loss Eyes Details: Goes to [facility] for her routine eye check Reports no additional complaints ENT Reports no additional complaints Card Reports no additional complaints Resp Reports no additional complaints GI Reports as per HPI and Reports no additional complaints Reports as per HPI Musc Reports no additional complaints Skin/Breast Reports as per HPI Neuro Reports no additional complaints Psych Reports no additional complaints Endo Reports no additional complaints Reese/Lymph Reports no additional complaints Aller/Immun Reports no additional complaints Physical exam (Primary Care) Vital Signs: Last Vital Signs Pulse 77 06/20/24 11:40 BP 100/64 06/20/24 11:40 Pulse Ox 96 06/20/24 11:40 Oxygen Delivery Method Room Air 06/20/24 11:40 BMI result Body Mass Index 37.6 Tobacco/Smoking Status: Tobacco use Status Tobacco use date assessed 06/20/24 06/20/24 11:42 Patient Tobacco Use Status Former Tobacco user 06/20/24 11:42 e-Cigarette/Vaping Use Never Used 06/20/24 11:42 PHQ-9: PHQ-9 Score PHQ-9: Total score 0 06/20/24 12:05 Depression Screening Interpretation: Negative Thrive Assessment: Date of Thrive Assessment Date Thrive assessed 06/20/24 06/20/24 11:45 Currently or been in a relationship where the following occur: I choose not to answer Const General: comfortable and alert Nutritional Appearance: obese Orientation/consciousness: patient oriented x3 HENMT Ears: hearing grossly normal bilaterally and TM's normal bilaterally General nose exam: Normal external nose present Face and sinus: Yes face symmetric Mouth: Normal oral and palatal mucosa present, oropharynx normal and moist mucous membranes Eyes General: appearance normal, both eyes and all related structures Neck Neck: Yes full ROM, Yes no lymphadenopathy and Yes supple Resp Auscultation: clear to auscultation bilaterally Cardio Rate: regular rate Rhythm: regular rhythm Heart sounds: S1 normal heart sound present, S2 normal heart sound present and Murmur heart sound present systolic soft and II/ Bruits: no abdominal aortic bruits GI Palpation (GI): No Abdominal aortic bruit present, Soft to palpation, nontender, no guarding and no masses General: Yes no CVA tenderness Back/Spine/Pelvis Back: no CVA tenderness and No back tenderness Skin General skin exam: no rashes or lesions noted Neuro General: patient oriented x3 Extrem General: Yes full ROM, Yes no joint enlargement, Yes no clubbing, cyanosis or edema and Yes normal gait Psych Appearance: grossly normal and well kempt Mental Status: mental status grossly normal Speech and movement: Normal speech and movement present Affect: normal affect Attitude: cooperative Thought process: Normal thought process present Results Reviewed Results Reviewed: Name: Kristan Holcomb Age/Sex: 63/F [facility] 1960 [id number] [id number] Attend Dr: Melita Hurd MD Re06/13/24 Status: DEP REF Location: [facility] Disch: SPEC : [id number] NASEEM: 06/13/24 STATUS: COMP REQ : [id number] RECD: 06/13/[address]: Melita Hurd MD COMP: 06/13/24 ENTERED: 06/13/[address] [facility] DR: ORDERED: Met Prof Fast, AST, ALT, Lipid Panel, Vitamin D 25-OH Test Result Flag Reference Sodium 140 135-145 mmol/L Potassium 4.0 3.3-5.1 mmol/L CL 108 96-108 mmol/L CO2 25 22-29 mmol/L Gap 11 L 12-20 BUN 14 9-16 mg/dL Creat 0.90 0.5-1.4 mg/dL EGFR > 60 NOTE: For -Qat[place] individuals, multiply the result by 1.210. Chronic Kidney Disease: Estimated GFR < 60 mL/min/1.73m2 Severe Kidney Disease: Estimated GFR < 15 mL/min/1.73m2 FBS 101 H 60-99 mg/dL A fasting glucose from 100-125 mg/dl is considered impaired (pre-diabetes). CA 9.3 8.4-10.2 mg/dL AST (GOT) 16 5-31 U/L ALT (GPT) 14 0-31 U/L Triglyceride 124 <150 mg/dL Desirable Triglyceride: less than 150 mg/dL Borderline High Triglyceride 150-199 mg/dL High Triglyceride: 200-499 mg/dL Very High Triglyceride: greater than or equal to 5OO mg/dL Cholesterol 159 <200 mg/dL Desirable Cholesterol: less than 200 mg/dL Borderline High Cholesterol: 200-239 mg/dL High Cholesterol: greater than 239 mg/dL LDL Calculated 97 <100 mg/dL Desirable LDL: less than 100 mg/dL Near Optimal/Above Optimal LDL: 110-129 mg/dL Borderline High LDL: 130-159 mg/dL High LDL: 160-189 mg/dL Very High LDL: greater than or equal to 190 mg/dL HDL 38 L >40 mg/dL Desirable HDL: greater than 40 mg/dL Note: This HDL assay may give artificially low results in patients with liver disease. Vit D 25-OH Tot 61.1 >30 ng/mL Health Based Reference Values* < 20 ng/mL Deficient 20-30 ng/mL Insufficient > 30 ng/mL Sufficient Assessment and Plan Assessment & Plan (1) YESIKA (obstructive sleep apnea): Comment: Mild degree of YESIKA, The total AHI was 7/hr and oxygen alaina was 82% Code(s): G47.33 - Obstructive sleep apnea (adult) (pediatric) Plan: Doing well on CPAP, compliant with using machine. (2) Essential hypertension: Code(s): I10 - Essential (primary) hypertension Plan: Blood pressure at goal of less than 130/80. Continue lisinopril 5 mg daily. Reinforced importance of following a low sodium diet, getting regular exercise, and lowering stress levels. (3) Mixed dyslipidemia: Code(s): E78.2 - Mixed hyperlipidemia Plan: Recent fasting lipids are within normal continue with atorvastatin 40 mg at night (4) Irritable bowel syndrome with constipation: Code(s): K58.1 - Irritable bowel syndrome with constipation Plan: Stable controlled on dicyclomine 10 mg 1 tablet 4 times a day as needed and takes Senokot as needed for episodes of constipation Orders: Orders Lipid Panel 11/26/24 E78.2 - Mixed hyperlipidemia, G47.33 - Obstructive sleep apnea (adult) (pediatric), I10 - Essential (primary) hypertension, K58.1 - Irritable bowel syndrome with constipation, Z00.01 - Encounter for general adult medical examination with abnormal findings Basic Metabolic Panel Fasting 11/26/24 E78.2 - Mixed hyperlipidemia, G47.33 - Obstructive sleep apnea (adult) (pediatric), I10 - Essential (primary) hypertension, K58.1 - Irritable bowel syndrome with constipation, Z00.01 - Encounter for general adult medical examination with abnormal findings Vitamin D 25-OH Total 11/26/24 E78.2 - Mixed hyperlipidemia, I10 - Essential (primary) hypertension, K58.1 - Irritable bowel syndrome with constipation Alanine Aminotransferase 11/26/24 E78.2 - Mixed hyperlipidemia, G47.33 - Obstructive sleep apnea (adult) (pediatric), I10 - Essential (primary) hypertension, K58.1 - Irritable bowel syndrome with constipation, Z00.01 - Encounter for general adult medical examination with abnormal findings Aspartate Amino Transferase 11/26/24 E78.2 - Mixed hyperlipidemia, G47.33 - Obstructive sleep apnea (adult) (pediatric), I10 - Essential (primary) hypertension, K58.1 - Irritable bowel syndrome with constipation, Z00.01 - Encounter for general adult medical examination with abnormal findings Medications: Refilled sennosides (Senokot) 17.2 mg (2 x 8.6 mg) PO DAILY 60 tabs 0RF Coding Level of Care Code Est Pt Level 4 (59644) Complex EM visit Add On G2211 Diagnoses YESIKA (obstructive sleep apnea) G47.33 Essential hypertension I10 Mixed dyslipidemia E78.2 Irritable bowel syndrome with constipation K58.1 Additional Codes JENNIE-7 Assessment Billing - JENNIE-7 Assessment Tool: JENNIE-7 Assessment [id number] ([id number])
== END 2024-06-20 12:35 | disposition home or self-care (01) ==
PROVIDERS: PCP Internal Medicine; Visit Provider Internal Medicine
DX: G47.33 Obstructive sleep apnea (adult) (pediatric) (principal); I10 Essential (primary) hypertension; E78.2 Mixed hyperlipidemia; K58.1 Irritable bowel syndrome with constipation

== ENCOUNTER → 2024-06-20 11:30 | Outpatient (BNVA) | payer OTHER, SELFPAY | PROVIDERS: PCP Internal Medicine; Visit Provider Internal Medicine | DX: G47.33 Obstructive sleep apnea (adult) (pediatric) (principal); I10 Essential (primary) hypertension; E78.2 Mixed hyperlipidemia; K58.1 Irritable bowel syndrome with constipation; Z79.899 Other long term (current) drug therapy; Z99.89 Dependence on other enabling machines and devices | CPT/HCPCS: 96127 ==

== ENCOUNTER 2024-06-24 08:48 | Outpatient (REF) | payer OTHER, SELFPAY ==
--- NOTE | ~2024-06-24 | MM_ITS ---
EXAMINATION: MM SCREENING DIGITAL BREAST TOMOSYNTHESIS, BILATERAL CLINICAL INFORMATION: Screening. Asymptomatic. COMPARISON: Mammography: Comparison is made with available priors TECHNIQUE: Digital breast mammography with tomosynthesis is performed in both the craniocaudal and mediolateral oblique views along with computer-aided detection (CAD). FINDINGS: There are scattered areas of fibroglandular density (ACR BI-RADS breast composition Category b). There are no significant masses, abnormal calcifications, or other abnormalities. MM/MM tomosynthesis screening BI IMPRESSION: No mammographic evidence of malignancy. ASSESSMENT: BI-RADS BI-RADS 1 - Negative RECOMMENDATION: Routine annual mammography screening. 1 year F/U This examination should not preclude the clinical evaluation of a suspicious palpable abnormality. This patient's information was entered into a reminder system with a target due date for their next mammogram. Electronically signed by: Betsey Martinez DO 07/06/2024 12:51 PM EDT
== END 2024-06-24 08:49 | disposition home or self-care (01) ==
LOC: HO.MAMMO 08:48
PROVIDERS: PCP Internal Medicine; Visit Provider Internal Medicine
DX: Z12.31 Encounter for screening mammogram for malignant neoplasm of breast (principal)
CPT/HCPCS: 77063; 77067

== ENCOUNTER → 2024-06-24 09:00 | Outpatient (BNV) | payer OTHER, SELFPAY | PROVIDERS: PCP Internal Medicine; Visit Provider Internal Medicine | DX: Z12.31 Encounter for screening mammogram for malignant neoplasm of breast (principal) | CPT/HCPCS: 77063; 77067 ==

== ENCOUNTER 2024-06-28 08:51 | Outpatient (AMB) | payer OTHER, SELFPAY ==
[2024-06-28 08:57] VITALS: BP 134/68; PULSE 64; BMI 37.6
--- NOTE | 2024-06-28 08:57 | MHC.OFFVIS ---
Vital Signs 06/28/24 08:57 Height 5 ft 4 in Weight 219 lb 2.232 oz BMI 37.6 BP 134/68 Blood Pressure Location Lt brachial Position Sitting Pulse 64 Intake Visit Reasons: follow up after echo Loss Prevention Officer Required: No Accompanied by: Self / Same As Patient Allergies oxycodone [From PERCOCET] Allergy (Severe, Verified 06/20/24 12:04) VOMITING ibuprofen [IBUPROFEN] Allergy (Intermediate, Verified 06/20/24 12:04) RASH/HIVES, rash naproxen Allergy (Intermediate, Verified 06/20/24 12:04) Rash Codeine Sulfate Allergy (Unknown, Uncoded 06/20/24 12:04) / itchy Medication List - Last Reconciled 06/28/24 by Jose De Jesus Pérez MD acetaminophen (Tylenol) 650 mg (2 x 325 mg) PO Q6H PRN atorvastatin 40 mg PO BEDTIME cholecalciferol (vitamin D3) 50 mcg PO DAILY dicyclomine 10 mg PO QID lisinopril 5 mg PO DAILY sennosides (Senokot) 17.2 mg (2 x 8.6 mg) PO DAILY simethicone 180 mg PO TID 30 days HPI Comments Details: Kristan returns for follow-up. In the past, she was seen regarding cardiac murmur detected during routine auscultation. Patient herself has no specific cardiac symptoms like angina or shortness of breath or in fact anything cardiac sounding. Normal exercise tolerance without limitations. No prior cardiac history. On medications for hypertension dyslipidemia. [facility] Medical History Irritable bowel syndrome with constipation Pain in right hip Essential hypertension Former moderate cigarette smoker (10-19 per day) Witnessed apneic spells Loud snoring Shortness of breath on exertion Hx of abnormal cervical Pap smear Mixed dyslipidemia Surgical History H/O hand surgery History of colposcopy Family History Mother Cervical cancer Father Substance use disorder Lung cancer Brother Substance use disorder Lung cancer Brother Substance use disorder Lung cancer Sister Substance use disorder Social History Housing: House Alcohol intake: never Patient Tobacco Use Status: Former Tobacco user e-Cigarette/Vaping Use: Never Used Second Hand Smoke Exposure: Yes service: No Current occupational status: unemployed Sexual orientation: Straight/Heterosexual Gender identity: Female Cognitive needs: No Hearing needs: No Vision needs: Yes Review of Systems Const Denies chills, Denies fatigue, Denies fever(s), Denies weight gain and Denies weight loss ENT Denies dizziness Card Denies chest pain, Denies leg edema, Denies lightheadedness, Denies palpitations, Denies dyspnea on exertion, Denies orthopnea and Denies other Resp Denies cough and Denies dyspnea on exertion GI Denies hematochezia and Denies change in stool character Musc Denies abnormal gait, Denies muscle weakness, Denies numbness, Denies radiating pain into limb and Denies tingling Neuro Denies abnormal gait, Denies dizziness, Denies numbness and Denies tingling Endo Denies fatigue and Denies palpitations Physical Exam Vital Signs: Last Vital Signs Pulse 64 06/28/24 08:57 BP 134/68 06/28/24 08:57 BMI result Body Mass Index 37.6 Const General: comfortable and no acute distress Orientation/consciousness: patient oriented x3 HEENT Other: Unremarkable Head: Yes normal to inspection Neck Neck: Yes normal visual inspection Chest Chest palpation & inspection: normal inspection of the chest Resp Auscultation: clear to auscultation bilaterally Cardio Palpation: normal PMI Heart sounds: S1 normal heart sound present, S2 normal heart sound present, no gallops, Murmur heart sound present systolic II/ and at the right sternal border and no rubs GI Palpation (GI): Soft to palpation Back/Spine/Pelvis Other: unremarkable Skin General skin exam: no rashes or lesions noted Neuro General: patient oriented x3 Extrem General: Yes normal to inspection Psych Mental Status: mental status grossly normal Office Procedures EKG Details: EKG with underlying sinus rhythm at 64/Min; no significant ST-T changes and otherwise unremarkable. [place]. [id number], Complete Assessment & Plan Assessment & Plan (1) Non-rheumatic aortic regurgitation: Code(s): I35.1 - Nonrheumatic aortic (valve) insufficiency Category: Medical Plan In the recent echocardiogram, LVEF 67%. Described trileaflet aortic valve with mild calcification and mild aortic regurgitation. Findings discussed with patient. Clinically, she has got absolutely no symptoms. We will recheck echocardiogram in about 3 years or so. In the interim, she will contact us with any concerns or cardiac symptoms. Discussed. Coding Level of Care Code Est Pt Level 3 (17583) Diagnoses Non-rheumatic aortic regurgitation I35.1 CPT Codes EKG - CPT: 56156-[id number], Complete ([id number])
== END 2024-06-28 09:43 | disposition home or self-care (01) ==
PROVIDERS: PCP Internal Medicine; Visit Provider Internal Medicine
DX: I35.1 Nonrheumatic aortic (valve) insufficiency (principal)
CPT/HCPCS: 93010; 99213

== ENCOUNTER → 2024-06-28 08:51 | Outpatient (BNVA) | payer OTHER, SELFPAY | PROVIDERS: PCP Internal Medicine; Visit Provider Internal Medicine | DX: I35.1 Nonrheumatic aortic (valve) insufficiency (principal) | CPT/HCPCS: 93005 ==

== ENCOUNTER 2024-06-29 08:24 | Outpatient (AMB) | payer OTHER, SELFPAY ==
[2024-06-29 08:29] VITALS: BMI 37.6
--- NOTE | 2024-06-29 08:29 | A.OFFVIS_ITS ---
Vital Signs 06/29/24 08:29 Height 5 ft 4 in Weight 219 lb BMI 37.6 Intake Visit Reasons: 1 yr follow up for Apnea Intake Note: Patient presents for 1 year follow up Allergies oxycodone [From PERCOCET] Allergy (Severe, Verified 06/29/24 08:31) VOMITING ibuprofen [IBUPROFEN] Allergy (Intermediate, Verified 06/29/24 08:31) RASH/HIVES, rash naproxen Allergy (Intermediate, Verified 06/29/24 08:31) Rash Codeine Sulfate Allergy (Unknown, Uncoded 06/29/24 08:31) / itchy HPI Comments Details: 64 y/o female patient presents for follow up of YESIKA on CPAP. The CPAP compliance and therapy response (03/30/24-06/27/24) reviewed. She is on APAP 5-20 cmH2O. Days of usage 100%, average usage hours 6 hours and 21 min. Mean pressure is 5.6, and the residual AHI was 0.8. Pt reports she sleeps well from 10 pm-7 am. She states that daytime symptoms improved, does not take a nap anymore. Pt does regular exercise, gym and stationary bike. [facility] Medical History Irritable bowel syndrome with constipation Pain in right hip Essential hypertension Former moderate cigarette smoker (10-19 per day) Witnessed apneic spells Loud snoring Shortness of breath on exertion Hx of abnormal cervical Pap smear Mixed dyslipidemia Surgical History H/O hand surgery History of colposcopy Family History Mother Cervical cancer Father Substance use disorder Lung cancer Brother Substance use disorder Lung cancer Brother Substance use disorder Lung cancer Sister Substance use disorder Social History Housing: House Alcohol intake: never Patient Tobacco Use Status: Former Tobacco user e-Cigarette/Vaping Use: Never Used Second Hand Smoke Exposure: Yes service: No Current occupational status: unemployed Sexual orientation: Straight/Heterosexual Gender identity: Female Cognitive needs: No Hearing needs: No Vision needs: Yes Physical Exam Vital Signs: BMI result Body Mass Index 37.6 Const General: cooperative and comfortable Nutritional Appearance: obese Orientation/consciousness: patient oriented x3 HEENT Head: Yes normocephalic Throat: Yes other (mallampati score 4) Neuro General: patient oriented x3 Cognition (Neuro): normal cognition Gait exam (Neuro): Normal gait present Psych Appearance: grossly normal Mental Status: mental status grossly normal Speech and movement: Normal speech and movement present Affect: normal affect Attitude: cooperative Assessment & Plan Assessment & Plan (1) YESIKA (obstructive sleep apnea): Comment: Mild degree of YESIKA, The total AHI was 7/hr and oxygen alaina was 82% Code(s): G47.33 - Obstructive sleep apnea (adult) (pediatric) Category: Medical Plan Continue to use CPAP [id number] as patient experiences good clinical effects. Stressed compliance, nightly and more than 4 hours. Advised patient to clean mask and tubing routinely. Coding Level of Care Code Est Pt Level 4 (54613) Diagnoses YESIKA (obstructive sleep apnea) G47.33
== END 2024-06-29 08:45 | disposition home or self-care (01) ==
PROVIDERS: Absent Provider Psychiatry & Neurology Neurology; PCP Internal Medicine; Visit Provider Psychiatry & Neurology Neurology
DX: G47.33 Obstructive sleep apnea (adult) (pediatric) (principal)
CPT/HCPCS: 99214

== ENCOUNTER → 2024-06-29 08:24 | Outpatient (BNVA) | payer OTHER, SELFPAY | PROVIDERS: Absent Provider Psychiatry & Neurology Neurology; PCP Internal Medicine; Visit Provider Psychiatry & Neurology Neurology ==

== ENCOUNTER 2024-12-07 07:33 | Outpatient (REF) | payer OTHER, SELFPAY ==
[2024-12-07 10:52] LABS: Alanine Aminotransferase 14 U/L (0-31); Anion Gap 11 (12-20); Aspartate Amino Transferase 26 U/L (5-31); Blood Urea Nitrogen 18 mg/dL (9-16); Calcium 9.2 mg/dL (8.4-10.2); Carbon Dioxide 26 mmol/L (22-29); Chloride 109 mmol/L (96-108); Cholesterol 151 mg/dL (<200); Estimated Glomerular Filt Rate > 60; Glucose Fasting 91 mg/dL (60-99); HDL Cholesterol 46 mg/dL (>40); LDL Cholesterol Calculated 86 mg/dL (<100); Potassium 3.7 mmol/L (3.3-5.1); Sodium 142 mmol/L (135-145); Triglycerides 96 mg/dL (<150)
[2024-12-07 11:09] LABS: Vitamin D 25-OH Total 83.4 ng/mL (>30)
== END 2024-12-07 07:34 | disposition home or self-care (01) ==
LOC: HO.HMGCLDS 07:33
PROVIDERS: PCP Internal Medicine; Visit Provider Internal Medicine
DX: Z00.01 Encounter for general adult medical examination with abnormal findings (principal); I10 Essential (primary) hypertension; E78.2 Mixed hyperlipidemia; K58.1 Irritable bowel syndrome with constipation; G47.33 Obstructive sleep apnea (adult) (pediatric)
CPT/HCPCS: 36415; 80048; 80061; 82306; 84450; 84460

== ENCOUNTER 2024-12-12 09:23 | Outpatient (AMB) | payer OTHER, SELFPAY ==
[2024-12-12 10:04] VITALS: BP 130/70; PULSE 76; RESP 16; TEMP 36.5; O2SAT 93; BMI 37.9
--- NOTE | 2024-12-12 10:04 | A.OFFPC_ITS ---
Vital Signs 12/12/24 10:04 Height 5 ft 4 in Weight 221 lb BMI 37.9 BP 130/70 Blood Pressure Location Rt brachial Position Sitting Respiration 16 Pulse 76 Pulse Source Pulse Oximeter Temp 97.7 F Temp Source Oral Pulse Oximetry (%) 93 Oxygen Delivery Method Room Air Intake Visit Reasons: 6m follow up-did not want to book PE due JANUARY Intake Note: Pt is here today for her 6mo. f/u Allergies oxycodone [From PERCOCET] Allergy (Severe, Verified 12/12/24 10:26) VOMITING ibuprofen [IBUPROFEN] Allergy (Intermediate, Verified 12/12/24 10:26) RASH/HIVES, rash naproxen Allergy (Intermediate, Verified 12/12/24 10:26) Rash Codeine Sulfate Allergy (Unknown, Uncoded 12/12/24 10:26) / itchy Medication List - Last Reconciled 12/12/24 by Melita Hurd MD acetaminophen (Tylenol) 650 mg (2 x 325 mg) PO Q6H PRN atorvastatin 40 mg PO BEDTIME cholecalciferol (vitamin D3) 50 mcg PO DAILY dicyclomine 10 mg PO QID lisinopril 5 mg PO DAILY sennosides (Senokot) 17.2 mg (2 x 8.6 mg) PO DAILY simethicone 180 mg PO TID 30 days Tobacco use date assessed: 12/12/24 Dental Screening Dental Screen Date: 12/12/24 Did you have a dental visit in the last 12 months?: Yes Did you have a dental problem in the last 6 months where you did not have access to dental care?: Yes Was dental information given to patient?: Patient has dentist HPI 6m follow up-did not want to book PE due MAY HPI Details 64 year-old lady with hypertension, hype rlipidemia, obesity, IBS with constipation, and obstructive sleep apnea, here today for follow-up. She has been feeling well , no complaints at present . She has been compliant with taking using her CPAP, has been taking her medicines as directed, has started exercising and following recommended diet. [facility] Medical History Irritable bowel syndrome with constipation Pain in right hip Essential hypertension Former moderate cigarette smoker (10-19 per day) Witnessed apneic spells Loud snoring Shortness of breath on exertion Hx of abnormal cervical Pap smear Mixed dyslipidemia Surgical History H/O hand surgery History of colposcopy Family History Mother Cervical cancer Father Substance use disorder Lung cancer Brother Substance use disorder Lung cancer Brother Substance use disorder Lung cancer Sister Substance use disorder Social History Housing: House Alcohol intake: never Patient Tobacco Use Status: Former Tobacco user e-Cigarette/Vaping Use: Never Used Second Hand Smoke Exposure: Yes service: No Current occupational status: unemployed Sexual orientation: Straight/Heterosexual Gender identity: Female Cognitive needs: No Hearing needs: No Vision needs: Yes Questionnaire PHQ-9 Over the last 2 weeks, how often have you been bothered by any of the following problems? 1. Little interest or pleasure in doing things: not at all 2. Feeling down, depressed, or hopeless: not at all 3. Trouble falling or staying asleep, or sleeping too much: not at all 4. Feeling tired or having little energy: not at all 5. Poor appetite or overeating: not at all 6. Feeling bad about yourself - or that you are a failure or have let yourself or your family down: not at all 7. Trouble concentrating on things, such as reading the newspaper or watching television: not at all 8. Moving or speaking so slowly that other people could have noticed. Or the opposite - being so fidgety or restless that you have been moving around a lot more than usual: not at all 9. Thoughts that you would be better off or of hurting yourself in some way: not at all Total score: 0 Depression Screening Interpretation: Negative Depression Screening Done: Yes 38093 - PHQ-9 Billing: Yes Source: Developed by Drs. Jean Schwarz, Ghazala Beard, Dwight Agosto and colleagues, with an educational tamica from [employer]. Thrive Questionnaire Date Thrive assessed: 12/12/24 I am a: Patient What is your living situation today?: I have a steady place to live Within the past 12 months, did the food you bought not last and you didn't have the money to get more?: Never true Within the past 12 months, did you worry whether your food would run out before you got money to buy more?: Never true Do you have trouble paying for medicines?: No Do you have trouble getting transportation to medical appointments?: No Do you have trouble paying your heating and electricity bill?: No Do you have trouble taking care of your child, family member or friend?: No Do you have trouble with day-to-day activities such as bathing, preparing meals, shopping, managing finances, etc.?: No Are you currently unemployed and looking for a job?: No Are you interested in more education?: No Currently or been in a relationship where the following occur: I choose not to answer THRIVE Score: 0 AUDIT C Alcohol Use Questionnaire (AUDIT-C) 1. How often do you have a drink containing alcohol?: Never Total Score: 0 JENNIE-7 AMB Questionnaire JENNIE-7 Date JENNIE - 7 assessed: 12/12/24 Feeling nervous, anxious, or on edge: 0 = Not at all Not being able to stop or control worryin = Not at all Worrying too much about different things: 0 = Not at all Trouble relaxin = Not at all Being so restless that it is hard to sit still: 0 = Not at all Becoming easily annoyed or irritable: 0 = Not at all Feeling afraid as if something awful might happen: 0 = Not at all Total JENNIE-7 score (0-4 normal; 5-9 mild; 10-14 moderate; 15-21 severe): 0 Source: Developed by Drs. Jean Schwarz, Ghazala Beard, Dwight Agosto and colleagues, with an educational tamica from [employer]. JENNIE-7 Assessment Billing JENNIE-7 Assessment Tool: JENNIE-7 Assessment 02320 Review of Systems Const Denies fatigue and Denies fever(s) ENT Denies dizziness Card Denies chest pain, Denies leg edema, Denies lightheadedness and Denies palpitations Resp Denies cough GI Denies hematochezia and Denies change in stool character Musc Denies abnormal gait, Denies muscle weakness, Denies numbness, Denies radiating pain into limb and Denies tingling Neuro Denies abnormal gait, Denies dizziness, Denies numbness and Denies tingling Endo Denies fatigue and Denies palpitations Physical exam (Primary Care) Vital Signs: Last Vital Signs Temp 97.7 F 12/12/24 10:04 Pulse 76 12/12/24 10:04 Resp 16 12/12/24 10:04 BP 130/70 12/12/24 10:04 Pulse Ox 93 12/12/24 10:04 Oxygen Delivery Method Room Air 12/12/24 10:04 BMI result Body Mass Index 37.9 Tobacco/Smoking Status: Tobacco use Status Tobacco use date assessed 12/12/24 12/12/24 10:18 Patient Tobacco Use Status Former Tobacco user 12/12/24 10:06 e-Cigarette/Vaping Use Never Used 12/12/24 10:06 PHQ-9: PHQ-9 Score PHQ-9: Total score 0 12/12/24 10:29 Depression Screening Interpretation: Negative Thrive Assessment: Date of Thrive Assessment Date Thrive assessed 12/12/24 12/12/24 10:06 Currently or been in a relationship where the following occur: I choose not to answer Const General: comfortable and alert Nutritional Appearance: obese Orientation/consciousness: patient oriented x3 HENMT Ears: hearing grossly normal bilaterally General nose exam: Normal external nose present Face and sinus: Yes face symmetric Mouth: Normal oral and palatal mucosa present, oropharynx normal and moist mucous membranes Eyes General: appearance normal, both eyes and all related structures Neck Neck: Yes full ROM, Yes no lymphadenopathy and Yes supple Resp Auscultation: clear to auscultation bilaterally Cardio Rate: regular rate Rhythm: regular rhythm Heart sounds: S1 normal heart sound present, S2 normal heart sound present and Murmur heart sound present systolic soft and II/ Bruits: no abdominal aortic bruits GI Palpation (GI): No Abdominal aortic bruit present, Soft to palpation, nontender, no guarding and no masses Skin General skin exam: no rashes or lesions noted Neuro General: patient oriented x3 Extrem General: Yes full ROM, Yes no joint enlargement, Yes no clubbing, cyanosis or edema and Yes normal gait Psych Appearance: grossly normal and well kempt Mental Status: mental status grossly normal Speech and movement: Normal speech and movement present Affect: normal affect Attitude: cooperative Thought process: Normal thought process present Results Reviewed Results Reviewed: Name: Kristan Holcomb Age/Sex: 64/F : 1960 Unit#: [id number] Attend Dr: Melita Hurd MD Re12/07/24 Status: DEP [facility] Disch: SPEC : [id number] NASEEM: 12/07/24 STATUS: COMP REQ : [id number] RECD: 12/07/24-[address]: Melita Hurd MD COMP: 12/07/24 ENTERED: 12/07/[address]: ORDERED: Met Prof Fast, AST, ALT, Lipid Panel, Vitamin D 25-OH Test Result Flag Reference Sodium 142 135-145 mmol/L Potassium 3.7 3.3-5.1 mmol/L CL 109 H 96-108 mmol/L CO2 26 22-29 mmol/L Gap 11 L 12-20 BUN 18 H 9-16 mg/dL Creat 0.81 0.5-1.4 mg/dL eGFR > 60 Chronic Kidney Disease: Estimated GFR < 60 mL/min/1.73m2 Severe Kidney Disease: Estimated GFR < 15 mL/min/1.73m2 FBS 91 60-99 mg/dL CA 9.2 8.4-10.2 mg/dL AST (GOT) 26 5-31 U/L ALT (GPT) 14 0-31 U/L Triglyceride 96 <150 mg/dL Desirable Triglyceride: less than 150 mg/dL Borderline High Triglyceride 150-199 mg/dL High Triglyceride: 200-499 mg/dL Very High Triglyceride: greater than or equal to 5OO mg/dL Cholesterol 151 <200 mg/dL Desirable Cholesterol: less than 200 mg/dL Borderline High Cholesterol: 200-239 mg/dL High Cholesterol: greater than 239 mg/dL LDL Calculated 86 <100 mg/dL Desirable LDL: less than 100 mg/dL Near Optimal/Above Optimal LDL: 110-129 mg/dL Borderline High LDL: 130-159 mg/dL High LDL: 160-189 mg/dL Very High LDL: greater than or equal to 190 mg/dL HDL 46 >40 mg/dL Desirable HDL: greater than 40 mg/dL Note: This HDL assay may give artificially low results in patients with liver disease. Vitamin D 25-OH 83.4 >30 ng/mL Health Based Reference Values* < 20 ng/mL Deficient 20-30 ng/mL Insufficient > 30 ng/mL Sufficient Coding Level of Care Code Est Pt Level 4 (97043) Complex EM visit Add On G2211 Diagnoses Essential hypertension I10 Mixed dyslipidemia E78.2 Constipation, unspecified constipation type K59.00 Constipation type: unspecified constipation type Additional Codes PHQ-9 - 50067 - PHQ-9 Billing: Yes ([id number]) JENNIE-7 Assessment Billing - JENNIE-7 Assessment Tool: JENNIE-7 Assessment 67969 ([id number]) Assessment & Plan Assessment & Plan (1) Essential hypertension: Code(s): I10 - Essential (primary) hypertension Category: Medical Plan: Blood pressure at goal of less than 130/80. Continue lisinopril 5 mg daily. Reinforced importance of following a low sodium diet, getting regular exercise, and lowering stress levels. (2) Mixed dyslipidemia: Code(s): E78.2 - Mixed hyperlipidemia Category: Medical Plan: Reviewed recent fasting lipid profile with patient with levels within normal limits . Continue atorvastatin 40 mg daily , in addition to adherence to low-cholesterol diet and regular exercise, at least 30 minutes 3 to 4 times a week. Advised patient to make healthy food choices, eat more fruits, vegetables, whole grains, wild caught fish and low-fat dairy. Limit amount of meat and fried or fatty food products, as well as processed foods and fast foods. (3) Constipation: Code(s): K59.00 - Constipation, unspecified Category: Medical Qualifiers: Constipation type: unspecified constipation type Qualified Code(s): K59.00 - Constipation, unspecified Plan: Trial of Senokot take as directed. Continue dicyclomine 10 mg 1 tablet 4 times a day as needed
== END 2024-12-12 10:34 | disposition home or self-care (01) ==
LOC: HO.HMCC 09:24
PROVIDERS: PCP Internal Medicine; Visit Provider Internal Medicine
DX: I10 Essential (primary) hypertension (principal); E78.2 Mixed hyperlipidemia; K59.00 Constipation, unspecified

== ENCOUNTER → 2024-12-12 09:23 | Outpatient (BNVA) | payer OTHER, SELFPAY | PROVIDERS: PCP Internal Medicine; Visit Provider Internal Medicine | DX: I10 Essential (primary) hypertension (principal); E78.2 Mixed hyperlipidemia; K59.00 Constipation, unspecified; Z79.899 Other long term (current) drug therapy | CPT/HCPCS: 96127 ==

== ENCOUNTER 2025-04-04 08:56 | Outpatient (AMB) | payer OTHER, SELFPAY ==
--- NOTE | 2025-04-04 08:58 | MHC.OFFVIS ---
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 Uses Poise pads. Currently sexually active. STI testing offered; she declined. Attempting to eat a healthy diet with calcium and vitamin D and stays active with exercise. Last pap smear; 2022, negative. Last mammogram; 2023. Colonoscopy is UTD. Denies any family history of breast, ovarian or colon cancer. [facility], [facility] Medical History Irritable bowel syndrome with constipation Pain in right hip Essential hypertension Former moderate cigarette smoker (10-19 per day) Witnessed apneic spells Loud snoring Shortness of breath on exertion Hx of abnormal cervical Pap smear Mixed dyslipidemia Surgical History H/O hand surgery History of colposcopy Family History Mother Cervical cancer Father Substance use disorder Lung cancer Brother Substance use disorder Lung cancer Brother Substance use disorder Lung cancer Sister Substance use disorder Social History Housing: House Alcohol intake: never Patient Tobacco Use Status: Former Tobacco user e-Cigarette/Vaping Use: Never Used Second Hand Smoke Exposure: Yes service: No Current occupational status: unemployed Sexual orientation: Straight/Heterosexual Gender identity: Female Cognitive needs: No Hearing needs: No Vision needs: Yes Female Reproductive History Menstrual control method: none Total pregnancies: 1 Full term: 1 Date of last pap smear: 03/18/23 (negative pap smear, negative hpv ) History of abnormal pap smear: Yes (07/26 lgsil 09/26 colpo) Date of Mammogram: 01/26/24 (bi rad 2) Review of Systems Const All systems reviewed & are unremarkable except as noted in HPI and below Reports as per HPI Eyes Reports no additional complaints ENT Reports no additional complaints Card Reports no additional complaints Resp Reports no additional complaints GI Reports as per HPI and Reports no additional complaints Reports as per HPI Musc Reports no additional complaints Skin/Breast Reports as per HPI Neuro Reports no additional complaints Psych Reports no additional complaints Endo Reports no additional complaints Reese/Lymph Reports no additional complaints Aller/Immun Reports no additional complaints Physical Exam Vital Signs: Last Vital Signs BP 126/72 04/04/25 09:05 BMI result Body Mass Index 37.9 Const General: cooperative, healthy appearing, no acute distress, well developed and alert Orientation/consciousness: patient oriented x3 HEENT Head: Yes normal to inspection Eyes General: appearance normal, both eyes and all related structures Neck Neck: Yes normal visual inspection Thyroid: Thyroid normal Chest Chest palpation & inspection: normal inspection of the chest and other (no puckering, dimpling, peau de orange, retraction, discharge, masses) Breast/axilla inspection: normal inspection of the breasts Breast/axilla palpation: normal palpation of the breasts Resp Effort & Inspection: normal respiratory effort GI Inspection: Yes normal to inspection Palpation (GI): Soft to palpation Rectal Exam - Female: deferred General: Yes bladder normal to palpation External Female Exam: normal external appearance and normal appearance of the urethra Speculum Exam - Vagina: normal appearance of the vagina, normal palpation and normal vaginal discharge Speculum Exam - Cervix: normal appearance of the cervix and normal palpation Bimanual exam- vagina & uterus: normal bimanual exam, normal palpation, uterine size normal, bladder normal to palpation, normal palpation and non-tender Bimanual Exam- Adnexa, other: no masses Skin General skin exam: no rashes or lesions noted Rashes: no rashes Neuro General: patient oriented x3 Cognition (Neuro): normal cognition Extrem General: Yes normal to inspection Psych Attitude: cooperative Thought process: Normal thought process present Assessment & Plan Assessment & Plan (1) Vulvar itching: Code(s): L29.2 - Pruritus vulvae Plan: Reviewed skin care, advised to change soap to mild on sent it product, rinse area well, dry thoroughly, use of cotton loose underwear and clothing. BV panel obtained await results for final plan of care. The patient expressed understanding and agreement with the plan of care. All of her questions and concerns were addressed to the best of my ability. (2) Encounter for well woman exam with routine gynecological exam: Code(s): Z01.419 - Encounter for gynecological examination (general) (routine) without abnormal findings Category: Medical Plan Discussed: Current recommendations for pap smears per ASCCP guidelines. Breast awareness, periodic self breast exams and yearly mammogram. Maintain a healthy lifestyle, well balanced diet including Calcium 1,200 mg and Vitamin D 600 IU daily, and routine exercise. Contact the office with any postmenopausal bleeding. Patient verbalizes understanding and agrees to the plan of care. She was given opportunity to ask questions and all questions were answered to the best of my ability. 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 This note is constructed using voice recognition software. While every effort has been made to ensure accuracy, machinist mechanic errors may have been included. Orders: Orders Bacterial Vaginosis Panel Today N89.8 - Other specified noninflammatory disorders of vagina Coding Level of Care Code Est Pt Prev Care 40-64y(79499) Diagnoses Vulvar itching L29.2 Encounter for well woman exam with routine gynecological exam Z01.419
[2025-04-04 09:05] VITALS: BP 126/72; BMI 37.9
--- OUTSIDE RECORDS SUMMARY | 2025-04-04 09:14 | XMS_ITS | Patient Health Record ---
Author Organization [facility] Address [address] [place] [address] Care Team Providers Care Senior Principal Architect Name Role Phone Vannessa MUELLER, Melita Del Toro Primary Care Provider Un available Carlene Javed Unavailable [phone] Allergies Allergen (clinical drug ingredient) Drug/Non Drug Allergy documented on EMR Reaction Allergy Type Onset Date Status codeine Codeine Sulfate Unknown Drug Allergy A ctive ibuprofen Ibuprofen rash Drug Allergy Active naproxen Naproxen rash Drug Allergy Active acetaminophen / oxycodone Percocet Unknown Drug Allergy Active Reason For Referral No Information Medications Medication SIG (Take, Route, Frequency, Duration) Notes Start Date End Date Status Vitamin D 2000 UNIT 1 tablet Orally Once a day; Duration: 30 day(s) Active Calcium + D3 600-200 MG-UNIT 1 tablet with a meal Orally Once a day; Duration: 30 day(s) Active CoQ-10 50 MG Orally Active Atorvastatin Calcium 20 MG 1 tablet Oral ly Once a day; Duration: 30 day(s) Active Social History Tobacco Use: Social History Observation Description Date Details (start date - stop date) Former Smoker NA - NA Tobacco Use/Smoking Question Answer Notes Are you a: former smoker Additional Findings: Tobacco Non-User Current no n-smoker Alcohol Screen Question Answer Notes Did you have a drink containing alcohol in the p ast year? Yes Points 0 Interpretation Negative Tobacco use other than smoking: Question Answer Notes Are you an other tobacco user? No Plan Of Treatment Pending Test Test Name Order Date X ray : Foot, left 3V 08/26/2019 [id number] TENDON SHEATH/LIGAMENT 1 10/27/2018 Insurance Providers Payer Name Payer Address Payer Phone Subscriber Number Group Number Insured Name Patient Relationship to Insured Coverage Start Date Coverage End Date [facility] [address] [place] [address] [id number] Tom Ivey Spouse - patient is the spouse of the insured Medical (General) History Medical History History ICD Code Hyperlipidemia Back,Hip,and Knee pain CAD (Cholesterol) Headaches/Migraines Mumps Surgical History Surgery Date(Month/Year)
== END 2025-04-04 09:20 | disposition home or self-care (01) ==
LOC: HO.HWS 08:57
PROVIDERS: PCP Internal Medicine; Visit Provider Advanced Practice Midwife
DX: Z01.419 Encounter for gynecological examination (general) (routine) without abnormal findings (principal); L29.2 Pruritus vulvae
CPT/HCPCS: 99396; 99459

== ENCOUNTER 2025-04-04 09:15 | Outpatient (REF) | payer OTHER, SELFPAY ==
[2025-04-04 20:56] LABS: Bacterial Vaginosis PCR NEGATIVE (Negative); Candida Group PCR NOT DETECTED (Not Detect); Candida glab krusei PCR DETECTED (Not Detect); Trichomonas vaginalis PCR NOT DETECTED (Not Detect)
== END 2025-04-04 09:16 | disposition home or self-care (01) ==
LOC: HO.LNP 09:15
PROVIDERS: Visit Provider Advanced Practice Midwife
DX: Z01.411 Encounter for gynecological examination (general) (routine) with abnormal findings (principal); L29.2 Pruritus vulvae; N89.8 Other specified noninflammatory disorders of vagina
CPT/HCPCS: 81515

== ENCOUNTER 2025-06-10 07:50 | Outpatient (REF) | payer OTHER, SELFPAY ==
--- OUTSIDE RECORDS SUMMARY | 2025-06-10 07:52 | XMS_ITS | Patient Health Record ---
Author Organization [facility] Address [address] [place] [address] Care Team Providers Care Account Manager Sales Representative Name Role Phone Vannessa MUELLER, Melita Del Toro Primary Care Provider Un available Carlene Javed Unavailable [phone] Allergies Allergen (clinical drug ingredient) Drug/Non Drug [...] X ray : Foot, left 3V 08/26/2019 [id number] TENDON SHEATH/LIGAMENT 1 10/27/2018 Insurance Providers Payer Name Payer Address Payer Phone Subscriber Number Group Number Insured Name Patient Relationship to Insured Coverage Start Date Coverage End Date [facility] [address] [place] [address] [id number] Tom Ivey Spouse - patient is the spouse of the insured Medical (General) History Medical History History ICD Code Hyperlipidemia Back,Hip,and Knee pain CAD (Cholesterol) Headaches/Migraines Mumps Surgical History Surgery Date(Month/Year)
[2025-06-10 11:54] LABS: Alanine Aminotransferase 14 U/L (0-31); Anion Gap 11 (12-20); Aspartate Amino Transferase 24 U/L (5-31); Blood Urea Nitrogen 14 mg/dL (9-16); Calcium 9.2 mg/dL (8.4-10.2); Carbon Dioxide 25 mmol/L (22-29); Chloride 109 mmol/L (96-108); Cholesterol 166 mg/dL (<200); Estimated Glomerular Filt Rate > 60; HDL Cholesterol 46 mg/dL (>40); Potassium 3.9 mmol/L (3.3-5.1); Sodium 141 mmol/L (135-145); Triglycerides 113 mg/dL (<150)
== END 2025-06-10 07:51 | disposition home or self-care (01) ==
LOC: HO.HMGCLDS 07:50
PROVIDERS: PCP Internal Medicine; Visit Provider Internal Medicine
DX: E78.2 Mixed hyperlipidemia (principal); I10 Essential (primary) hypertension; Z78.0 Asymptomatic menopausal state
CPT/HCPCS: 36415; 80048; 80061; 82306; 84450; 84460

== ENCOUNTER 2025-06-13 09:15 | Outpatient (AMB) | payer OTHER, SELFPAY ==
[2025-06-13 09:22] VITALS: BP 110/80; PULSE 76; RESP 16; TEMP 36.8; O2SAT 94; BMI 37.4
--- NOTE | 2025-06-13 09:22 | A.OFFPC_ITS ---
Vital Signs 06/13/25 09:22 Height 5 ft 4 in Weight 218 lb BMI 37.4 BP 110/80 Blood Pressure Location Lt brachial Position Sitting Respiration 16 Pulse 76 Pulse Source Pulse Oximeter Temp 98.3 F Temp Source Oral Pulse Oximetry (%) 94 Oxygen Delivery Method Room Air Intake Visit Reasons: 6m follow up Intake Note: Pt is here today for her 6mo. f/u Allergies oxycodone (From PERCOCET) Allergy (Severe, Verified 06/13/25 09:23) VOMITING ibuprofen (IBUPROFEN) Allergy (Intermediate, Verified 06/13/25 09:23) RASH/HIVES, rash naproxen Allergy (Intermediate, Verified 06/13/25 09:23) Rash Codeine Sulfate Allergy (Unknown, Uncoded 06/13/25 09:23) / itchy Medication List - Last Reconciled 06/13/25 by Melita Hurd MD acetaminophen (Tylenol) 650 mg (2 x 325 mg) PO Q6H PRN atorvastatin 40 mg PO BEDTIME cholecalciferol (vitamin D3) 50 mcg PO DAILY dicyclomine 10 mg PO QID famotidine 20 mg PO DAILY lisinopril 5 mg PO DAILY sennosides (Senokot) 17.2 mg (2 x 8.6 mg) PO DAILY simethicone 180 mg PO TID 30 days Tobacco use date assessed: 06/13/25 Dental Screening Dental Screen Date: 06/13/25 Did you have a dental visit in the last 12 months?: Yes Did you have a dental problem in the last 6 months where you did not have access to dental care?: No Was dental information given to patient?: Patient has dentist HPI 6m follow up HPI Details 64-year-old lady here today for follow-u p on her lipids. Currently on atorvastatin 40 mg at bedtime, with normal lipids, and triglycerides on latest labs done. She however states that she has been slightly off her diet and has gained some weight though this past summer Complains also of nasal congestion and ears feeling blocked P which interferes with her use of CPAP. Has not been taking any [id number] allergy medicines, previously was on loratadine which was helping. Has hypertension currently on lisinopril 5 mg daily, with good control of blood pressure seen [facility] Medical History (Updated 06/13/25 @ 09:50 by Melita Hurd MD) Environmental and seasonal allergies Irritable bowel syndrome with constipation Pain in right hip Essential hypertension Former moderate cigarette smoker (10-19 per day) Witnessed apneic spells Loud snoring Shortness of breath on exertion Hx of abnormal cervical Pap smear Mixed dyslipidemia Surgical History H/O hand surgery History of colposcopy Family History Mother Cervical cancer Father Substance use disorder Lung cancer Brother Substance use disorder Lung cancer Brother Substance use disorder Lung cancer Sister Substance use disorder Social History Housing: House Alcohol intake: never Patient Tobacco Use Status: Former Tobacco user e-Cigarette/Vaping Use: Never Used Second Hand Smoke Exposure: Yes service: No Current occupational status: unemployed Sexual orientation: Straight/Heterosexual Gender identity: Female Cognitive needs: No Hearing needs: No Vision needs: Yes Questionnaire PHQ-9 Over the last 2 weeks, how often have you been bothered by any of the following problems? 1. Little interest or pleasure in doing things: not at all 2. Feeling down, depressed, or hopeless: not at all 3. Trouble falling or staying asleep, or sleeping too much: not at all 4. Feeling tired or having little energy: not at all 5. Poor appetite or overeating: not at all 6. Feeling bad about yourself - or that you are a failure or have let yourself or your family down: not at all 7. Trouble concentrating on things, such as reading the newspaper or watching television: not at all 8. Moving or speaking so slowly that other people could have noticed. Or the opposite - being so fidgety or restless that you have been moving around a lot more than usual: not at all 9. Thoughts that you would be better off or of hurting yourself in some way: not at all Total score: 0 Depression Screening Interpretation: Negative Depression Screening Done: Yes Source: Developed by Drs. Jean Schwarz, Ghazala Beard, Dwight Agosto and colleagues, with an educational tamica from [email or web address]. Thrive Questionnaire Date Thrive assessed: 12/12/24 I am a: Patient What is your living situation today?: I have a steady place to live Within the past 12 months, did the food you bought not last and you didn't have the money to get more?: Often true Within the past 12 months, did you worry whether your food would run out before you got money to buy more?: Never true Do you have trouble paying for medicines?: No Do you have trouble getting transportation to medical appointments?: No Do you have trouble paying your heating and electricity bill?: No Do you have trouble taking care of your child, family member or friend?: No Do you have trouble with day-to-day activities such as bathing, preparing meals, shopping, managing finances, etc.?: No Are you currently unemployed and looking for a job?: No Are you interested in more education?: No Please select the resources that you would like help with: None Currently or been in a relationship where the following occur: I choose not to answer THRIVE Score: 1 AUDIT C Alcohol Use Questionnaire (AUDIT-C) 1. How often do you have a drink containing alcohol?: Never Total Score: 0 JENNIE-7 AMB Questionnaire JENNIE-7 Date JENNIE - 7 assessed: 12/12/24 Feeling nervous, anxious, or on edge: 0 = Not at all Not being able to stop or control worryin = Not at all Worrying too much about different things: 0 = Not at all Trouble relaxin = Not at all Being so restless that it is hard to sit still: 0 = Not at all Becoming easily annoyed or irritable: 0 = Not at all Feeling afraid as if something awful might happen: 0 = Not at all Total JENNIE-7 score (0-4 normal; 5-9 mild; 10-14 moderate; 15-21 severe): 0 Source: Developed by Drs. Jean Schwarz, Ghazala Beard, Dwight Agosto and colleagues, with an educational tamica from [email or web address]. Review of Systems Const All systems reviewed & are unremarkable except as noted in HPI and below Reports as per HPI Eyes Reports no additional complaints ENT Reports as per HPI Card Reports no additional complaints Resp Reports no additional complaints GI Reports no additional complaints Musc Reports no additional complaints Neuro Reports no additional complaints Endo Reports no additional complaints Reese/Lymph Reports no additional complaints Aller/Immun Reports as per HPI Physical exam (Primary Care) Vital Signs: Last Vital Signs Temp 98.3 F 06/13/25 09:22 Pulse 76 06/13/25 09:22 Resp 16 06/13/25 09:22 BP 110/80 06/13/25 09:22 Pulse Ox 94 06/13/25 09:22 Oxygen Delivery Method Room Air 06/13/25 09:22 BMI result Body Mass Index 37.4 Tobacco/Smoking Status: Tobacco use Status Tobacco use date assessed 06/13/25 06/13/25 09:28 Patient Tobacco Use Status Former Tobacco user 06/13/25 09:28 e-Cigarette/Vaping Use Never Used 06/13/25 09:28 PHQ-9: PHQ-9 Score PHQ-9: Total score 0 06/13/25 09:28 Depression Screening Interpretation: Negative Thrive Assessment: Date of Thrive Assessment Date Thrive assessed 12/12/24 06/13/25 09:28 Currently or been in a relationship where the following occur: I choose not to answer HENMT Ears: external ears normal, TM's normal bilaterally (Scarring on the eardrum on the right noted) and EAC's normal General nose exam: Normal external nose present and Normal nasal mucous membranes and turbinates present Face and sinus: Yes face symmetric Mouth: Normal oral and palatal mucosa present, oropharynx normal and moist mucous membranes Neck Neck: Yes full ROM, Yes no lymphadenopathy and Yes supple Resp Auscultation: clear to auscultation bilaterally Cardio Other: S1-S2 present regular rate and rhythm GI Inspection: Yes obesity Palpation (GI): Soft to palpation, nontender, no guarding and no masses Auscultation: normal bowel sounds Results Reviewed Results Reviewed: Name: Kristan Holcomb Age/Sex: 64/F : 1960 Unit#: [id number] Attend Dr: Melita Hurd MD Re06/10/25 Status: DEP REF [facility] Disch: SPEC : [id number] NASEEM: 06/10/25 STATUS: COMP REQ : [id number] RECD: 06/10/25-[address]: Melita Hurd MD COMP: 06/10/251154 ENTERED: 06/10/[address]: ORDERED: Met Prof Fast, AST, ALT, Lipid Panel, Vitamin D 25-OH Test Result Flag Reference Sodium 141 135-145 mmol/L Potassium 3.9 3.3-5.1 mmol/L CL 109 H 96-108 mmol/L CO2 25 22-29 mmol/L Gap 11 L 12-20 BUN 14 9-16 mg/dL Creat 0.89 0.5-1.4 mg/dL eGFR > 60 Chronic Kidney Disease: Estimated GFR < 60 mL/min/1.73m2 Severe Kidney Disease: Estimated GFR < 15 mL/min/1.73m2 FBS 99 60-99 mg/dL CA 9.2 8.4-10.2 mg/dL AST (GOT) 24 5-31 U/L ALT (GPT) 14 0-31 U/L Triglyceride 113 <150 mg/dL Desirable Triglyceride: less than 150 mg/dL Borderline High Triglyceride 150-199 mg/dL High Triglyceride: 200-499 mg/dL Very High Triglyceride: greater than or equal to 5OO mg/dL Cholesterol 166 <200 mg/dL Desirable Cholesterol: less than 200 mg/dL Borderline High Cholesterol: 200-239 mg/dL High Cholesterol: greater than 239 mg/dL LDL Calculated 98 <100 mg/dL Desirable LDL: less than 100 mg/dL Near Optimal/Above Optimal LDL: 110-129 mg/dL Borderline High LDL: 130-159 mg/dL High LDL: 160-189 mg/dL Very High LDL: greater than or equal to 190 mg/dL HDL 46 >40 mg/dL Desirable HDL: greater than 40 mg/dL Note: This HDL assay may give artificially low results in patients with liver disease. Vitamin D 25-OH 64.5 >30 ng/mL Health Based Reference Values* < 20 ng/mL Deficient 20-30 ng/mL Insufficient > 30 ng/mL Sufficient Coding Level of Care Code Est Pt Level 4 (33484) Complex EM visit Add On G2211 Diagnoses Essential hypertension I10 Mixed dyslipidemia E78.2 Environmental and seasonal allergies J30.89 Assessment & Plan Assessment & Plan (1) Essential hypertension: Code(s): I10 - Essential (primary) hypertension Category: Medical Plan: Blood pressure at goal of less than 130/80. Continue with current medication. Reinforced importance of following a low sodium diet, getting regular exercise, and lowering stress levels. (2) Mixed dyslipidemia: Code(s): E78.2 - Mixed hyperlipidemia Category: Medical Plan: Reviewed recent fasting lipid profile with patient with levels within normal limits but slightly higher than last check . Continue atorvastatin 40 mg at bedtime , in addition to adherence to low-cholesterol diet and regular exercise, at least 30 minutes 3 to 4 times a week. Advised patient to make healthy food choices, eat more fruits, vegetables, whole grains, wild caught fish and low-fat dairy. Limit amount of meat and fried or fatty food products, as well as processed foods and fast foods. (3) Environmental and seasonal allergies: Code(s): J30.89 - Other allergic rhinitis Category: Medical Plan: Advised to try [id number] either Claritin or Zyrtec once a day for nasal congestion, also prescription sent for Azelastine nasal spray, instill 1-2 sprays per nostril twice a day as needed for nasal congestion. Recommended to get her flu shot, states will get it in June Medications: New azelastine administer into each nostril 2 sprays intranasal BID PRN 30 mL 2RF allergy symptoms
== END 2025-06-13 09:48 | disposition home or self-care (01) ==
LOC: HO.HMCC 09:16
PROVIDERS: PCP Internal Medicine; Visit Provider Internal Medicine
DX: I10 Essential (primary) hypertension (principal); E78.2 Mixed hyperlipidemia; J30.89 Other allergic rhinitis

== ENCOUNTER 2025-06-29 09:08 | Outpatient (AMB) | payer OTHER, SELFPAY ==
[2025-06-29 09:10] VITALS: BP 140/80; PULSE 73; O2SAT 94; BMI 37.6
--- NOTE | 2025-06-29 09:10 | MHC.OFFVIS ---
Vital Signs 06/29/25 09:10 Height 5 ft 4 in Weight 219 lb 4 oz BMI 37.6 BP 140/80 H Blood Pressure Location Rt brachial Position Sitting Pulse 73 Pulse Source Pulse Oximeter Pulse Oximetry (%) 94 Oxygen Delivery Method Room Air Intake Visit Reasons: 1 yr YESIKA F/U from Dr. Banerjee Intake Note: Patient presents follow up YESIKA. Compliance in chart(90/90days, >=4hrs-96%, Average Usage-6hr 48min, Med Pressure-6, Med Leaks-3.5, AHI-0.9). Allergies oxycodone (From PERCOCET) Allergy (Severe, Verified 06/29/25 09:14) VOMITING ibuprofen (IBUPROFEN) Allergy (Intermediate, Verified 06/29/25 09:14) RASH/HIVES, rash naproxen Allergy (Intermediate, Verified 06/29/25 09:14) Rash Codeine Sulfate Allergy (Unknown, Uncoded 06/13/25 09:23) / itchy HPI Comments Details: 65 y/o female patient presents for follow up of YESIKA she is on CPAP therapy. The CPAP compliance and therapy response (March 2025 - Jun 2025) reviewed Total days used 96/98 and 98%, avg use hours 6 hours and 53 min. Median pressure is 4.6cmH20, and leaks 0.3cmH20 residual AHI is 1.0/hr She washes her mask, rinses hoses, changes filters and fills reservoir with water She sleeps really well with her cpap machine and feels more energetic with use. She states that daytime symptoms improved, does not take a nap anymore. She manages GERD like symptoms with Acid reflux managed with famotidine. She continues to have daily headaches lasting about an hour, radiating from her eyes to the back of her neck, severity is 6/10 with photo/phonophobia. She denies dizziness, vision changes, vertigo and balance instability. She takes an otc tylenol and it immediately goes away. She declines sumatritpan today. She is concerned about her diet and weight gain, she is now trying to eat a yard cleaner diet. She started on Ozempic 0.5 weekly once a week. She goes to the gym regularly and is cycling on her stationary bike. She denies RLS symptoms. She has chronic R. hip pain and it feels sore/ achy in the mornings. She had imaging completed recently and it was normal. We discussed using a pillow in between her knees at night as she is a side sleeper. Mood and memory are stable. Her BP is elevated today due to her missing her medications in the morning, usually BP is well controlled. [facility] Medical History Environmental and seasonal allergies Irritable bowel syndrome with constipation Pain in right hip Essential hypertension Former moderate cigarette smoker (10-19 per day) Witnessed apneic spells Loud snoring Shortness of breath on exertion Hx of abnormal cervical Pap smear Mixed dyslipidemia Surgical History H/O hand surgery History of colposcopy Family History Mother Cervical cancer Father Substance use disorder Lung cancer Brother Substance use disorder Lung cancer Brother Substance use disorder Lung cancer Sister Substance use disorder Social History Housing: House Alcohol intake: never Patient Tobacco Use Status: Former Tobacco user e-Cigarette/Vaping Use: Never Used Second Hand Smoke Exposure: Yes service: No Current occupational status: unemployed Sexual orientation: Straight/Heterosexual Gender identity: Female Cognitive needs: No Hearing needs: No Vision needs: Yes Physical Exam Vital Signs: Last Vital Signs Pulse 73 06/29/25 09:10 BP 140/80 H 06/29/25 09:10 Pulse Ox 94 06/29/25 09:10 Oxygen Delivery Method Room Air 06/29/25 09:10 BMI result Body Mass Index 37.6 Const General: cooperative and comfortable Nutritional Appearance: obese Orientation/consciousness: patient oriented x3 HEENT Head: Yes normocephalic Throat: Yes other (mallampati score 4) Eyes Pupils: Equal, round and reactive pupils present Neuro General: patient oriented x3 and moves all extremities Cranial nerves: Yes Equal, round and reactive pupils present, Yes Normal accommodation reflex present, Yes Midline tongue present, Yes Ability to bilaterally rotate head present and Yes Ability to bilaterally elevate shoulders present Cognition (Neuro): normal cognition Gait exam (Neuro): Normal gait present Motor exam (neuro): 5/5 motor strength present throughout and Normal motor muscle tone present throughout Psych Appearance: grossly normal Mental Status: mental status grossly normal Speech and movement: Normal speech and movement present Affect: normal affect Attitude: cooperative Results Reviewed Results Reviewed: The CPAP compliance and therapy response (March 2025 - Jun 2025) reviewed Total days used 96/98 and 98%, avg use hours 6 hours and 53 min. Median pressure is 4.6cmH20, and leaks 0.3cmH20 residual AHI is 1.0/hr Assessment & Plan Assessment & Plan (1) YESIKA (obstructive sleep apnea): Comment: Mild degree of YESIKA, The total AHI was 7/hr and oxygen alaina was 82% Code(s): G47.33 - Obstructive sleep apnea (adult) (pediatric) Category: Medical (2) Excessive daytime sleepiness: Code(s): G47.19 - Other hypersomnia Category: Medical (3) YESIKA on CPAP: Code(s): G47.33 - Obstructive sleep apnea (adult) (pediatric) Category: Medical Plan Compliance reviewed with pt today, continue to use CPAP [id number] as patient experiences good clinical effects and continue using for greater than 4hours nightly. Labs to r/o deficiencies. F/U in 6 months Orders: Orders Comprehensive Met. Panel Today G47.19 - Other hypersomnia Hemoglobin A1c Today G47.19 - Other hypersomnia Vitamin B12 and Folate Today G47.19 - Other hypersomnia Complete Blood Count no Diff Today G47.19 - Other hypersomnia Ferritin Today G47.19 - Other hypersomnia Methylmalonic Acid Today G47.19 - Other hypersomnia, G47.9 - Sleep disorder, unspecified, R53.83 - Other fatigue Homocysteine Today G47.19 - Other hypersomnia, G47.9 - Sleep disorder, unspecified, R53.83 - Other fatigue IRON PROFILE Today G47.19 - Other hypersomnia, G47.9 - Sleep disorder, unspecified, R53.83 - Other fatigue Vitamin D 25-OH Total Today G47.19 - Other hypersomnia TSH reflex Free T4 Today G47.19 - Other hypersomnia Patient Instructions: Sleep Hygiene provided: set a scheduled bedtime and wake time to help regulate the circadian rhythm and balance the release of pituitary hormones. Sleep in a dark room, temperatures below 68 degrees, and no devices n bed. Limit caffeinated products 6 hours prior to bed, and limit fluids 2-4 hours prior to bed. Gentle night yoga, diffusing essential oils, and playing soft music can be relaxing. Coding Level of Care Code Est Pt Level 4 (47828) Diagnoses YESIKA (obstructive sleep apnea) G47.33 Excessive daytime sleepiness G47.19 YESIKA on CPAP G47.33
== END 2025-06-29 09:38 | disposition home or self-care (01) ==
LOC: HO.HSMS 09:09
PROVIDERS: PCP Internal Medicine; Visit Provider Physician Assistant Medical
DX: G47.33 Obstructive sleep apnea (adult) (pediatric) (principal); G47.19 Other hypersomnia
CPT/HCPCS: 99214

== ENCOUNTER 2025-06-30 08:53 | Outpatient (REF) | payer OTHER, SELFPAY | END 2025-06-30 08:54 | disposition home or self-care (01) | LOC: HO.MAMMO 08:53 | PROVIDERS: PCP Internal Medicine; Visit Provider Internal Medicine | DX: Z12.31 Encounter for screening mammogram for malignant neoplasm of breast (principal) | CPT/HCPCS: 77063; 77067 ==

== ENCOUNTER → 2025-06-30 09:00 | Outpatient (BNV) | payer OTHER, SELFPAY | PROVIDERS: PCP Internal Medicine; Visit Provider Radiology Body Imaging | DX: Z12.31 Encounter for screening mammogram for malignant neoplasm of breast (principal) | CPT/HCPCS: 77063; 77067 ==

== ENCOUNTER 2025-07-05 08:47 | Outpatient (REF) | payer OTHER, SELFPAY ==
--- OUTSIDE RECORDS SUMMARY | 2025-07-05 09:20 | XMS_ITS | Patient Health Record ---
Author Organization [facility] Address [address] [place] [address] Care Team Providers Care [employer] Top Helper Name Role Phone Vannessa MUELLER, Melita Del Toro Primary Care Provider Un available Carlene Javed Unavailable [phone] Allergies Allergen (clinical drug ingredient) Drug/Non Drug [...] X ray : Foot, left 3V 08/26/2019 [id number] TENDON SHEATH/LIGAMENT 1 10/27/2018 Insurance Providers Payer Name Payer Address Payer Phone Subscriber Number Group Number Insured Name Patient Relationship to Insured Coverage Start Date Coverage End Date [facility] [address] [place] [address] [id number] Tom Ivey Spouse - patient is the spouse of the insured Medical (General) History Medical History History ICD Code Hyperlipidemia Back,Hip,and Knee pain CAD (Cholesterol) Headaches/Migraines Mumps Surgical History Surgery Date(Month/Year)
[2025-07-05 10:20] LABS: Hematocrit 42.2 % (37.0-47.0); Hemoglobin 13.8 g/dl (12.0-16.0); Mean Corpuscular HGB Conc 32.7 g/dl (31.0-35.0); Mean Corpuscular Hemoglobin 28.2 pg (27.0-33.0); Mean Corpuscular Volume 86.3 fL (80.0-98.0); NRBC Abs Auto 0.000 X10*3/uL (0.0-0.012); NRBC Pct Auto 0.0 /100WBC (0.0-0.2); Platelet Count 277 X10*3/uL (160-400); Red Blood Count 4.89 X10*6/uL (4.20-5.50); White Blood Count 7.9 X10*3/uL (4.8-10.8)
[2025-07-05 10:27] LABS: Hemoglobin A1C 135.8316 umol/L
[2025-07-05 11:07] LABS: Alanine Aminotransferase 16 U/L (0-31); Albumin Level 4.5 g/dL (3.5-5.0); Alkaline Phosphatase 128 U/L (39-117); Anion Gap 12 (12-20); Aspartate Amino Transferase 23 U/L (5-31); Blood Urea Nitrogen 13 mg/dL (9-16); Calcium 9.2 mg/dL (8.4-10.2); Carbon Dioxide 24 mmol/L (22-29); Chloride 109 mmol/L (96-108); Estimated Glomerular Filt Rate > 60; Iron 79 mcg/dL (30-160); Percent Iron Saturation 31 % (15-50); Potassium 4.4 mmol/L (3.3-5.1); Sodium 141 mmol/L (135-145); Total Iron Binding Capacity 257 mcg/dL (228-428); Total Protein 7.7 g/dL (6.5-8.0); Unsaturated Iron Binding 178 ug/dL
[2025-07-05 11:25] LABS: Ferritin 39 ng/mL (10-250)
[2025-07-05 11:53] LABS: Folate 8.1 ng/mL (> or = 4.0); Vitamin B12 320 pg/mL (200-900)
== END 2025-07-05 08:48 | disposition home or self-care (01) ==
LOC: HO.LAB 08:47
PROVIDERS: PCP Internal Medicine; Visit Provider Physician Assistant Medical
DX: Z13.1 Encounter for screening for diabetes mellitus (principal); Z13.6 Encounter for screening for cardiovascular disorders; G47.19 Other hypersomnia; R53.83 Other fatigue
CPT/HCPCS: 36415; 80053; 82306; 82607; 82728; 82746; 83036; 83090; 83540; 83921; 84443; 85027

== ENCOUNTER 2025-09-06 11:24 | Outpatient (AMB) | payer OTHER, SELFPAY ==
--- NOTE | 2025-09-06 11:27 | MHC.PC.OV ---
Vital Signs 09/06/25 11:42 Height 5 ft 4 in Weight 216 lb BMI 37.1 BP 110/66 Blood Pressure Location Lt brachial Position Sitting Respiration 16 Pulse 70 Pulse Source Pulse Oximeter Temp 97.9 F Temp Source Oral Pulse Oximetry (%) 95 Oxygen Delivery Method Room Air Intake Visit Reasons: Annual PE Intake Note: Pt is here today for her PE: Last mammogram 06/30/25, papsmear 03/18/23, colonoscopy 06/11/23 Recreational Therapy Aide Required: No Allergies oxycodone (From PERCOCET) Allergy (Severe, Verified 09/17/25 01:31) VOMITING ibuprofen (IBUPROFEN) Allergy (Intermediate, Verified 09/17/25 01:31) RASH/HIVES, rash naproxen Allergy (Intermediate, Verified 09/17/25 01:31) Rash Codeine Sulfate Allergy (Unknown, Uncoded 09/17/25 01:31) / itchy Medication List - Last Reconciled 09/17/25 by Melita Hurd MD acetaminophen (Tylenol) 650 mg (2 x 325 mg) PO Q6H PRN atorvastatin 40 mg PO BEDTIME azelastine 2 sprays intranasal BID PRN cholecalciferol (vitamin D3) 50 mcg PO DAILY dicyclomine 10 mg PO QID famotidine 20 mg PO DAILY lisinopril 5 mg PO DAILY Ozempic (semaglutide) 0.25 mg (0.368 mL) subcut QWEEK 30 days NS sennosides (Senokot) 17.2 mg (2 x 8.6 mg) PO DAILY simethicone 180 mg PO TID 30 days Tobacco use date assessed: 09/06/25 Last assessed Fall Risk: 09/06/25 Dental Screening Dental Screen Date: 09/06/25 Did you have a dental visit in the last 12 months?: No Did you have a dental problem in the last 6 months where you did not have access to dental care?: No Was dental information given to patient?: Patient has dentist HPI Annual PE HPI Details 65 year-old lady with hypertension, hyperlipidemia, obesity, IBS with constipation, and obstructive sleep apnea, here today for her physical exam. Blood pressure stable and controlled on lisinopril 5 mg daily. Takes atorvastatin 40 mg daily for control of her lipids. Has been compliant with her medications and has been following a healthier diet but admits to not getting any regular exercise. Currently on Ozempic for help with weight loss, tolerating medication well, and has lost weight on medication. She is up-to-date with her breast cancer screening, with last mammogram done earlier this year showing normal findings. Goes to [facility] for her routine Pap and pelvic exam, with last exam done in 2022. She is up-to-date with her colon cancer screening, had a colonoscopy done by Dr. Oseguera in 2022 with benign findings. Repeat colonoscopy due again in 2032. Up-to-date with her shingles vaccine, yearly flu shot and pneumococcal vaccine. Declines to get COVID booster however [facility] Medical History Environmental and seasonal allergies Irritable bowel syndrome with constipation Essential hypertension Former moderate cigarette smoker (10-19 per day) Witnessed apneic spells Hx of abnormal cervical Pap smear Mixed dyslipidemia Surgical History H/O hand surgery History of colposcopy Family History Mother Cervical cancer Father Substance use disorder Lung cancer Brother Substance use disorder Lung cancer Brother Substance use disorder Lung cancer Sister Substance use disorder Social History Housing: House Alcohol intake: never Patient Tobacco Use Status: Former Tobacco user e-Cigarette/Vaping Use: Never Used Second Hand Smoke Exposure: Yes service: No Current occupational status: unemployed Sexual orientation: Straight/Heterosexual Gender identity: Female Cognitive needs: No Hearing needs: No Vision needs: Yes Questionnaire PHQ-9 Over the last 2 weeks, how often have you been bothered by any of the following problems? 1. Little interest or pleasure in doing things: not at all 2. Feeling down, depressed, or hopeless: not at all 3. Trouble falling or staying asleep, or sleeping too much: not at all 4. Feeling tired or having little energy: not at all 5. Poor appetite or overeating: not at all 6. Feeling bad about yourself - or that you are a failure or have let yourself or your family down: not at all 7. Trouble concentrating on things, such as reading the newspaper or watching television: not at all 8. Moving or speaking so slowly that other people could have noticed. Or the opposite - being so fidgety or restless that you have been moving around a lot more than usual: not at all 9. Thoughts that you would be better off or of hurting yourself in some way: not at all Total score: 0 Depression Screening Interpretation: Negative Depression Screening Done: Yes Source: Developed by Drs. Jean Schwarz, Ghazala Beard, Dwight Agosto and colleagues, with an educational tamica from [employer]. Thrive Questionnaire Date Thrive assessed: 06/06/25 I am a: Patient What is your living situation today?: I have a steady place to live Within the past 12 months, did the food you bought not last and you didn't have the money to get more?: Often true Within the past 12 months, did you worry whether your food would run out before you got money to buy more?: Never true Do you have trouble paying for medicines?: No Do you have trouble getting transportation to medical appointments?: No Do you have trouble paying your heating and electricity bill?: No Do you have trouble taking care of your child, family member or friend?: No Do you have trouble with day-to-day activities such as bathing, preparing meals, shopping, managing finances, etc.?: No Are you currently unemployed and looking for a job?: No Are you interested in more education?: No Please select the resources that you would like help with: None Currently or been in a relationship where the following occur: I choose not to answer THRIVE Score: 1 AUDIT C Alcohol Use Questionnaire (AUDIT-C) 1. How often do you have a drink containing alcohol?: Never Total Score: 0 JENNIE-7 AMB Questionnaire JENNIE-7 Date JENNIE - 7 assessed: 12/12/24 Feeling nervous, anxious, or on edge: 0 = Not at all Not being able to stop or control worryin = Not at all Worrying too much about different things: 0 = Not at all Trouble relaxin = Not at all Being so restless that it is hard to sit still: 0 = Not at all Becoming easily annoyed or irritable: 0 = Not at all Feeling afraid as if something awful might happen: 0 = Not at all Total JENNIE-7 score (0-4 normal; 5-9 mild; 10-14 moderate; 15-21 severe): 0 Source: Developed by Drs. Jean Schwarz, Ghazala Beard, Dwight Agosto and colleagues, with an educational tamica from [employer]. Review of Systems Const All systems reviewed & are unremarkable except as noted in HPI and below Reports as per HPI Eyes Details: goes to [facility] , wears glasses Reports no additional complaints ENT Reports as per HPI Card Reports no additional complaints Resp Reports no additional complaints GI Reports no additional complaints Reports no additional complaints and Denies nipple discharge Musc Reports no additional complaints Skin/Breast Denies breast pain, Denies breast mass, Denies lesions, Denies nipple discharge and Denies rash Neuro Reports no additional complaints Psych Reports no additional complaints Endo Reports no additional complaints Reese/Lymph Reports no additional complaints Aller/Immun Reports as per HPI Physical exam (Primary Care) Vital Signs: Last Vital Signs Temp 97.9 F 09/06/25 11:42 Pulse 70 09/06/25 11:42 Resp 16 09/06/25 11:42 BP 110/66 09/06/25 11:42 Pulse Ox 95 09/06/25 11:42 Oxygen Delivery Method Room Air 09/06/25 11:42 BMI result Body Mass Index 37.1 Tobacco/Smoking Status: Tobacco use Status Tobacco use date assessed 09/06/25 09/06/25 11:30 Patient Tobacco Use Status Former Tobacco user 09/06/25 11:30 e-Cigarette/Vaping Use Never Used 09/06/25 11:30 PHQ-9: PHQ-9 Score PHQ-9: Total score 0 09/06/25 12:17 Depression Screening Interpretation: Negative Thrive Assessment: Date of Thrive Assessment Date Thrive assessed 06/06/25 09/06/25 11:30 Currently or been in a relationship where the following occur: I choose not to answer Const Orientation/consciousness: patient oriented x3 HENMT Ears: external ears normal General nose exam: Normal external nose present Face and sinus: Yes face symmetric Mouth: Normal oral and palatal mucosa present and moist mucous membranes Eyes General: appearance normal, both eyes and all related structures Neck Neck: Yes full ROM, Yes no lymphadenopathy and Yes supple Resp Auscultation: clear to auscultation bilaterally Cardio Other: S1-S2 present regular rate and rhythm GI Inspection: Yes obesity Palpation (GI): Soft to palpation, nontender, no guarding and no masses Auscultation: normal bowel sounds General: Yes no CVA tenderness and Yes deferred Back/Spine/Pelvis Back: no CVA tenderness and No back tenderness Skin General skin exam: no rashes or lesions noted Neuro General: patient oriented x3, gait normal, tone normal, Normal light touch and pain sensation, no focal motor deficits and CN's II-XI intact bilaterally Extrem General: Yes normal to inspection, Yes full ROM, Yes no joint enlargement, Yes no clubbing, cyanosis or edema and Yes normal gait Psych Appearance: grossly normal Mental Status: mental status grossly normal Speech and movement: Normal speech and movement present Affect: normal affect Coding Level of Care Code Est Pt Prev Care 40-64y(48680) Diagnoses Annual visit for general adult medical examination with abnormal findings Z00. Mixed dyslipidemia E78.2 Family history of thyroid disease Z83.49 Essential hypertension I10 Environmental and seasonal allergies J30.89 Irritable bowel syndrome with constipation K58.1 YESIKA on CPAP G47.33 Assessment & Plan Assessment & Plan (1) Annual visit for general adult medical examination with abnormal findings: Code(s): Z00.01 - Encounter for general adult medical examination with abnormal findings Plan: Will check appropriate labs. Continue regular dental visit every 6 months and regular eye exams, at least every 2 years. Take adequate calcium in diet and vitamin-D 3 at 2000 IU per cap once a day, in addition to weight-bearing exercises to help maintain good muscle tone and weight control. Instructed to do self-breast exam, and continued to get yearly mammogram. Goes to [facility] for her routine Pap and pelvic exam. Up-to-date with her vaccines, but does not want to get COVID booster. Up-to-date with her screening colonoscopy done by Dr. Oseguera, repeat screening due again in 2032 (2) Mixed dyslipidemia: Code(s): E78.2 - Mixed hyperlipidemia Category: Medical Plan: Reminded to get fasting labs done. Currently on atorvastatin 40 mg at bedtime continue with the adherence to healthy eating habits and regular exercise (3) Family history of thyroid disease: Code(s): Z83.49 - Family history of other endocrine, nutritional and metabolic diseases Plan: Will check TSH and free T4 levels (4) Essential hypertension: Code(s): I10 - Essential (primary) hypertension Category: Medical Plan: Blood pressure at goal of less than 130/80. Continue with current medication. Reinforced importance of following a low sodium diet, getting regular exercise, and lowering stress levels. (5) Environmental and seasonal allergies: Code(s): J30.89 - Other allergic rhinitis Category: Medical Plan: Currently using as Azelastine nasal spray as needed (6) Irritable bowel syndrome with constipation: Code(s): K58.1 - Irritable bowel syndrome with constipation Category: Medical Plan: Taking dicyclomine 10 mg 1 tablet q.i.d. as needed (7) YESIKA on CPAP: Code(s): G47.33 - Obstructive sleep apnea (adult) (pediatric) Category: Medical Plan: Compliant with the use of CPAP Orders: Orders Aspartate Amino Transferase 09/08/25 E78.2 - Mixed hyperlipidemia TSH reflex Free T4 09/08/25 Z83.49 - Family history of other endocrine, nutritional and metabolic diseases Lipid Panel 09/08/25 E78.2 - Mixed hyperlipidemia Alanine Aminotransferase 09/08/25 E78.2 - Mixed hyperlipidemia
[2025-09-06 11:42] VITALS: BP 110/66; PULSE 70; RESP 16; TEMP 36.6; O2SAT 95; BMI 37.1
--- OUTSIDE RECORDS SUMMARY | 2025-09-06 15:10 | XMS_ITS | Patient Health Record ---
Author Organization [facility] Address [address] [place] [address] Care Team Providers Care Mems Integration Engineer Name Role Phone Vannessa MUELLER, Melita Del Toro Primary Care Provider Un available Carlene Javed Unavailable [phone] Allergies Allergen (clinical drug ingredient) Drug/Non Drug [...] X ray : Foot, left 3V 08/26/2019 [id number] TENDON SHEATH/LIGAMENT 1 10/27/2018 Insurance Providers Payer Name Payer Address Payer Phone Subscriber Number Group Number Insured Name Patient Relationship to Insured Coverage Start Date Coverage End Date [facility] [address] [place] [address] [id number] Tom Ivey Spouse - patient is the spouse of the insured Medical (General) History Medical History History ICD Code Hyperlipidemia Back,Hip,and Knee pain CAD (Cholesterol) Headaches/Migraines Mumps Surgical History Surgery Date(Month/Year)
== END 2025-09-06 12:24 | disposition home or self-care (01) ==
LOC: HO.HMCC 11:25
PROVIDERS: PCP Internal Medicine; Visit Provider Internal Medicine
DX: Z00.01 Encounter for general adult medical examination with abnormal findings (principal); E78.2 Mixed hyperlipidemia; Z83.49 Family history of other endocrine, nutritional and metabolic diseases; I10 Essential (primary) hypertension; J30.89 Other allergic rhinitis; K58.1 Irritable bowel syndrome with constipation; G47.33 Obstructive sleep apnea (adult) (pediatric)

== ENCOUNTER 2025-09-08 07:26 | Outpatient (REF) | payer OTHER, SELFPAY ==
--- OUTSIDE RECORDS SUMMARY | 2025-09-08 07:29 | XMS_ITS | Patient Health Record ---
Author Organization [facility] Address [address] [place] [address] Care Team Providers Care Hull Outfit Supervisor Name Role Phone Vannessa MUELLER, Melita Del Toro Primary Care Provider Un available Carlene Javed Unavailable [phone] Allergies Allergen (clinical drug ingredient) Drug/Non Drug [...] X ray : Foot, left 3V 08/26/2019 [id number] TENDON SHEATH/LIGAMENT 1 10/27/2018 Insurance Providers Payer Name Payer Address Payer Phone Subscriber Number Group Number Insured Name Patient Relationship to Insured Coverage Start Date Coverage End Date [facility] [address] [place] [address] [id number] Tom Ivey Spouse - patient is the spouse of the insured Medical (General) History Medical History History ICD Code Hyperlipidemia Back,Hip,and Knee pain CAD (Cholesterol) Headaches/Migraines Mumps Surgical History Surgery Date(Month/Year)
[2025-09-08 10:47] LABS: Alanine Aminotransferase 15 U/L (0-31); Aspartate Amino Transferase 29 U/L (5-31); Cholesterol 154 mg/dL (<200); HDL Cholesterol 49 mg/dL (>40); Triglycerides 114 mg/dL (<150)
== END 2025-09-08 07:27 | disposition home or self-care (01) ==
LOC: HO.HMGCLDS 07:26
PROVIDERS: PCP Internal Medicine; Visit Provider Internal Medicine
DX: E78.2 Mixed hyperlipidemia (principal); Z83.49 Family history of other endocrine, nutritional and metabolic diseases
CPT/HCPCS: 36415; 80061; 84443; 84450; 84460